=== PATIENT | male | born 1945 | race Caucasian/White ===

== ENCOUNTER 2018-06-12 10:11 | Inpatient (IN) | payer MEDICARE, OTHER ==
[~2018-06-12] VITALS: Ht 182.9 cm; Wt 88.5 kg
--- NOTE | 2018-06-12 09:50 | NUR ---
NURSE NOTES: Report received from EVERARDO Hawthorne. Patient awake. IV access obtained by radiology department. Patient in RA, denies any pain or SOB. SCALPER OPERATOR was called for Patient at 0855 however Patient alert and awake at the moment. Bed on lowest position, brakes engaged, side rails upx2. Call light within easy reach. Patient made aware of procedures to be done for the day. Addendum: 06/12/18 at 2004 by Dominik Rivers RN WRONG PATIENT
[~2018-06-12 10:11] MED LIST: ATORVASTATIN CA20 MG ORAL; CARVEDILOL3.125 MG ORAL; DEXILANT60 MG ORAL; DIAZEPAM10 MG ORAL; FISH OIL 1,2001 EAC3 ORAL; FOLIC ACID1 MG ORAL; FUROSEMIDE20 M1 ORAL; JANUVIA25 MG ORAL; KLOR-CON20 MEQ ORAL; LISINOPRIL10 MG ORAL; METFORMIN HCL500 M1 ORAL; PREDNISONE20 MG ORAL; PRILOSEC40 MG ORAL; PROAIR HFA8.5 GM INH; VITAMIN D400 INTLU ORAL; vit b12
[2018-06-12 10:41] VITALS: BP 112/68
--- NOTE | 2018-06-12 10:41 | NUR ---
ED Nurse Note: PT walked in to ED due to dizziness for last 3 days. per pt, he is the one who spinning. per pt, it was on and off. dry coughing noted. wheezing audiable. AAO x4. respirations even and non-labored noted. skin warm to touch. no open wound noted. ambulatory with steady gait. broken and missing teeth noted. per pt, had lip cancer and treated. on monitoring and evaluation advisor. will wait for the further order.
[2018-06-12] MEDS ORDERED: Albuterol/Ipratropium 3ml neb HHN ONE (11:15)
[2018-06-12 11:25] LABS: EOSINOPHILS % (AUTO) 3.1 % (0.0-3.0); HEMATOCRIT 52.5 % (42.0-52.0); HEMOGLOBIN 17.1 G/DL (14.2-18.0); LYMPHOCYTES % (AUTO) 20.4 % (20.0-45.0); MEAN CORPUSCULAR VOLUME 91 FL (80-99); NEUTROPHILS % (AUTO) 69.5 % (45.0-75.0); PLATELET COUNT 223 K/UL (150-450); RED BLOOD COUNT 5.77 M/UL (4.70-6.10); RED CELL DISTRIBUTION WIDTH 13.3 % (11.6-14.8); WHITE BLOOD COUNT 7.9 K/UL (4.8-10.8)
[2018-06-12 11:30] LABS: ANION GAP 8 mmol/L (5-15); BLOOD UREA NITROGEN 22 mg/dL (7-18); CALCIUM 9.4 MG/DL (8.5-10.1); CARBON DIOXIDE 27 MMOL/L (21-32); CHLORIDE 104 MMOL/L (98-107); CREATININE 1.3 MG/DL (0.55-1.30); POTASSIUM 4.5 MMOL/L (3.5-5.1); SODIUM 139 MMOL/L (136-145)
--- NOTE | 2018-06-12 11:30 | NUR ---
NURSE NOTES: Radiology confirmed IV ok to use.
[2018-06-12 11:35] LABS: APPEARANCE,URINE CLEAR; BILIRUBIN, URINE NEGATIVE (NEGATIVE); COLOR,URINE PALE YELLOW; GLUCOSE, URINE (UA) NEGATIVE (NEGATIVE); KETONES,URINE NEGATIVE (NEGATIVE); LEUKOCYTE ESTERASE ,URINE NEGATIVE (NEGATIVE); NITRITE,URINE NEGATIVE (NEGATIVE); PH,URINE 5 (4.5-8.0); PROTEIN,URINE NEGATIVE (NEGATIVE); UROBILINOGEN,URINE NORMAL MG/DL (0.0-1.0)
[2018-06-12 11:44] LABS: ALANINE AMINOTRANSFERASE 19 U/L (12-78); ALBUMIN 3.7 G/DL (3.4-5.0); ALBUMIN/GLOBULIN RATIO 0.8 (1.0-2.7); ALKALINE PHOSPHATASE 69 U/L (46-116); ASPARTATE AMINO TRANSFERASE 15 U/L (15-37); BILIRUBIN,TOTAL 0.7 MG/DL (0.2-1.0); CREATINE KINASE 75 U/L (26-308)
--- NOTE | 2018-06-12 11:59 | Diagnostic Imaging Report ---
Indication: Shortness of breath Technique: One view of the chest Comparison: 11/26/2012 Findings: Again demonstrated is evidence of prior CABG. The heart is enlarged. Lungs and pleural spaces are clear Impression: Cardiomegaly. No acute process
[2018-06-12 12:00] VITALS: BP 104/64
--- NOTE | 2018-06-12 12:04 | Diagnostic Imaging Report ---
Indications: Dizziness Technique: Spiral acquisitions obtained through the brain. Angled axial and coronal 5 x 5 mm slices were reconstructed. Total dose length product 1446.09 mGycm. CTDI vol(s) 70.38 mGy. Dose reduction achieved using automated exposure control Comparison: None. Findings: Ventricles and extra axial CSF spaces are within normal limits for age. No acute intercranial hemorrhage nor edema. No mass effect or midline shift. Normal vazquez-white differentiation. Visualized orbits are unremarkable. There is questionably a scalp contusion near the vertex, versus chronic scalp thickening. There is ethmoid sinus mucosal thickening. The mastoids are clear. The calvarium is intact. Impression: Negative for acute intrarenal bleed or mass effect Thickening of the scalp near the vertex, could indicate contusion. Correlate with clinical history and findings The CT scanner at [facility] is accredited by the [employer] and the scans are performed using protocols designed to limit radiation exposure to as low as reasonably achievable to attain images of sufficient resolution adequate for diagnostic evaluation.
[2018-06-12] MEDS ORDERED: KLOR-CON 88 MEQ ORAL (12:43)
[2018-06-12] MEDS ORDERED: TYLENOL COLD &1 EAC1 PO (12:43)
[2018-06-12] MEDS ORDERED: PREDNISONE1 MG PO (12:43)
[2018-06-12] MEDS ORDERED: PRINIVIL10 MG ORAL (12:43)
[2018-06-12] MEDS ORDERED: HYDROXYCHLOROQ200 M1 PO (12:43)
[2018-06-12] MEDS ORDERED: CRESTOR40 MG ORAL (12:43)
[2018-06-12] MEDS ORDERED: CARVEDILOL25 MG ORAL (12:43)
[2018-06-12] MEDS ORDERED: LORazepam Inj 2mg/ml 1ml IV PRN (13:15)
[2018-06-12] MEDS ORDERED: Ketorolac 30mg Inj IV PRN (13:15)
[2018-06-12] MEDS ORDERED: Promethazine/Codeine 5ml UD ORAL PRN (13:15)
[2018-06-12] MEDS ORDERED: Morphine Sulfate 2mg/ml Inj IVP PRN (13:15)
[2018-06-12] MEDS ORDERED: Albuterol/Ipratropium 3ml neb HHN PRN (13:15)
[2018-06-12 14:00] VITALS: BP 121/70
[2018-06-12] MEDS ORDERED: Piperacillin/Tazobactam 2.25 GM in D5W 55 ML IV SCH (14:00)
[2018-06-12] MEDS ORDERED: Nitroglycerin Subl 0.4mg tab SL PRN (14:00)
--- NOTE | 2018-06-12 15:17 | NUR ---
ED Nurse Note: tele unable to take reports at this time. will try within 10 mins.
--- NOTE | 2018-06-12 15:25 | NUR ---
NURSE NOTES: Report received from EVERARDO Hilliard. Patient AOx4. In RA. Belongings checked signed and filed. Patient's own medications packed to be sent to pharmacy. IV patent. Bed on lowest position, brakes engaged, side rails up x2. Patient oriented to room hospital policies..... Call light within easy reach.
--- NOTE | 2018-06-12 15:35 | NUR ---
ED Nurse Note: reports given to EVERARDO Potter.
[2018-06-12] MEDS: Zosyn 3.375gm q8h **Extended infusion IVPB SCH ×4 (17:31→22:15)
[2018-06-12] MEDS: Solu-MEDROL 125mg Inj IV SCH (17:40)
--- NOTE | 2018-06-12 19:15 | History and Physical Report ---
DATE OF ADMISSION: 06/12/2018 TIME SEEN: 2 p.m. CONSULTANTS: 1. Zaheer Hidalgo M.D. 2. Deandre Cho M.D. 3. Deni Lowe M.D. 4. Samuel Hull M.D. CHIEF COMPLAINT: Weakness, dizziness, shortness of breath, cough, and vertigo. BRIEF HISTORY: This is a 73-year-old male, who lives at home all of a sudden experienced room spinning, dizziness, vertigo came to [facility], diagnosed with vertigo, cough and weakness and shortness of breath, being admitted to telemetry for further care. Currently, calm, in the ER gurney, oriented x3, no acute distress. PAST MEDICAL HISTORY: Includes diabetes, hypertension, COPD. PAST SURGICAL HISTORY: Quadruple bypass. MEDICATIONS: Include Lasix, Januvia, Coreg, , Navjot-Dur, Plaquenil, Solu-Medrol, Zosyn, albuterol. ALLERGIES: None. SOCIAL HISTORY: No smoking. Occasional alcohol. No intravenous drug abuse. FAMILY HISTORY: Noncontributory. PHYSICAL EXAMINATION: GENERAL: Calm in bed, oriented x3, no acute distress. VITAL SIGNS: Temperature is 97 degrees, pulse 65, respiratory rate 20, blood pressure 112/68. CARDIOVASCULAR: No murmurs. LUNGS: Distant and clear. ABDOMEN: Bowel sounds positive. Nontender. Nondistended. EXTREMITIES: No cyanosis, clubbing, or edema. NEUROLOGIC: The patient moves all extremities, slightly weak. LABORATORY AND DIAGNOSTIC DATA: CBC is normal. BMP show BUN 22, glucose 130. Lactic acid 2.3. Troponin 0.002. BNP is 361. Albumin 3.7. ASSESSMENT: 1. Fever. 2. Shortness breath. 3. Weakness. 4. Cough. 5. Vertigo. 6. Diabetes. 7. Hypertension. 8. COPD. 9. Poor hearing. PLAN: 1. Blood pressure and blood sugar control. 2. Pain control. 3. Dietary followup. 4. PT evaluation. 5. CBC and BMP in the morning. 6. Resume home medications. 7. We will continue to follow the patient. Delano Walters D.O. DR: Harish JOB#: [id number] CC:
--- NOTE | 2018-06-12 19:19 | Cardiology Progress Note ---
Assessment/Plan Assessment/Plan The patient is seen and examined, full consult note will be dictated. Objective Last 24 Hour Vital Signs Date Time Temp Pulse Resp B/P (MAP) Pulse Ox O2 Delivery O2 Flow Rate FiO2 06/12/18 17:12 Room Air 06/12/18 16:00 64 06/12/18 15:32 98.3 64 22 107/69 96 Room Air 06/12/18 14:00 98.6 75 20 121/70 96 Room Air 21 06/12/18 12:00 65 20 99 Room Air 21 06/12/18 12:00 98.3 62 21 104/64 95 Room Air 21 06/12/18 11:51 21 06/12/18 11:51 62 24 94 Room Air 21 06/12/18 10:41 68 27 Room Air 06/12/18 10:41 97.6 68 23 112/68 96 Room Air 06/12/18 10:12 97.7 66 13 118/62 92 Room Air Laboratory Tests Test 06/12/18 10:30 06/12/18 11:17 06/12/18 12:40 White Blood Count 7.9 K/UL (4.8-10.8) Red Blood Count 5.77 M/UL (4.70-6.10) Hemoglobin 17.1 G/DL (14.2-18.0) Hematocrit 52.5 % (42.0-52.0) H Mean Corpuscular Volume 91 FL (80-99) Mean Corpuscular Hemoglobin 29.7 PG (27.0-31.0) Mean Corpuscular Hemoglobin Concent 32.6 G/DL (32.0-36.0) Red Cell Distribution Width 13.3 % (11.6-14.8) Platelet Count 223 K/UL (150-450) Mean Platelet Volume 8.8 FL (6.5-10.1) Neutrophils (%) (Auto) 69.5 % (45.0-75.0) Lymphocytes (%) (Auto) 20.4 % (20.0-45.0) Monocytes (%) (Auto) 6.0 % (1.0-10.0) Eosinophils (%) (Auto) 3.1 % (0.0-3.0) H Basophils (%) (Auto) 1.0 % (0.0-2.0) Sodium Level 139 MMOL/L (136-145) Potassium Level 4.5 MMOL/L (3.5-5.1) Chloride Level 104 MMOL/L (98-107) Carbon Dioxide Level 27 MMOL/L (21-32) Anion Gap 8 mmol/L (5-15) Blood Urea Nitrogen 22 mg/dL (7-18) H Creatinine 1.3 MG/DL (0.55-1.30) Estimat Glomerular Filtration Rate mL/min (>60) Glucose Level 130 MG/DL (74-106) H Lactic Acid Level 2.30 mmol/L (0.4-2.0) H 1.70 mmol/L (0.66-2.22) Calcium Level 9.4 MG/DL (8.5-10.1) Total Bilirubin 0.7 MG/DL (0.2-1.0) Aspartate Amino Transf (AST/SGOT) 15 U/L (15-37) Alanine Aminotransferase (ALT/SGPT) 19 U/L (12-78) Alkaline Phosphatase 69 U/L (46-116) Total Creatine Kinase 75 U/L (26-308) Creatine Kinase MB 1.0 NG/ML (0.0-3.6) Creatine Kinase MB Relative Index 1.3 Troponin I 0.002 ng/mL (0.000-0.056) Pro-B-Type Natriuretic Peptide 361 pg/mL (0-125) H Total Protein 8.3 G/DL (6.4-8.2) H Albumin 3.7 G/DL (3.4-5.0) Globulin 4.6 g/dL Albumin/Globulin Ratio 0.8 (1.0-2.7) L Urine Color Pale yellow Urine Appearance Clear Urine pH 5 (4.5-8.0) Urine Specific [place] 1.020 (1.005-1.035) Urine Protein Negative (NEGATIVE) Urine Glucose (UA) Negative (NEGATIVE) Urine Ketones Negative (NEGATIVE) Urine Blood Negative (NEGATIVE) Urine Nitrite Negative (NEGATIVE) Urine Bilirubin Negative (NEGATIVE) Urine Urobilinogen Normal MG/DL (0.0-1.0) Urine Leukocyte Esterase Negative (NEGATIVE) Microbiology Date/Time Source Procedure Growth Status 06/12/18 11:17 Nasal Nares Influenza Types A,B Antigen (GARETT) - Final Complete Deni Lowe MD Jun 12, 2018 19:18
--- NOTE | 2018-06-12 19:30 | NUR ---
NURSE NOTES: Received report from EVERARDO Lehman. Pt is awake and resting in bed. In no acute distress. Bed in lowest position, call light within reach. Will continue plan of care.
--- NOTE | 2018-06-12 19:50 | NUR ---
HAND-OFF: Report given to EVERARDO Santiago. Patient in stable condition.
[2018-06-12 20:00] VITALS: BP 135/87
[2018-06-12] MEDS: Theophylline ER 100mg ORAL SCH (22:14)
[2018-06-12] MEDS: Carvedilol 25mg Tab ORAL SCH (22:15)
[2018-06-12] MEDS: Heparin 5000 units/ml inj SUBQ SCH (22:16)
--- NOTE | 2018-06-12 23:00 | Consultation ---
DATE OF CONSULTATION: 06/12/2018 CARDIOLOGY CONSULTATION CONSULTING PHYSICIAN: Deni Lowe M.D. REFERRING PHYSICIAN: Delano Walters D.O. REASON FOR CONSULTATION: Management of coronary artery disease in the patient with coronary artery bypass graft surgery as well as shortness of breath. 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 The patient states that he was at usual state of health until he started to have runny nose with chest congestion and productive cough of clear phlegm in addition to history of baseline asthma. He states that for asthma he takes about 2 mg of prednisone on a daily basis. His cardiac history is significant for history of coronary artery disease, status post quadruple coronary artery bypass graft surgery, which was done by at the [facility] at that time. He states that ever since bypass surgery, he has not had any trouble with his heart. He is still physically active and asymptomatic with pressing about 30 kg of weight. PAST MEDICAL HISTORY: Significant for, 1. Coronary artery disease, status post coronary artery bypass graft surgery. 2. History of asthma. 3. History of hay fever. 4. History of CVA. 5. History of diabetes mellitus. PAST SURGICAL HISTORY: Quadruple coronary artery bypass graft surgery. SOCIAL HISTORY: Smoked just about a year when he was younger and never smoked ever after. Denies any alcohol use. Denies any illicit drug use. REVIEW OF SYSTEMS: HEENT: Denies any headache, diplopia, or blurred vision. CONSTITUTIONAL: Denies any fever or chills. He had two episode of sweating following the vertigo. He does not complain of presyncope and did not have syncopal event. CARDIOVASCULAR: Denies any chest pain, shortness of breath, PND, orthopnea, or leg swelling. PULMONARY: Complaining of chest congestion and productive cough of clear phlegm in the past four to five days. Denies any hemoptysis. GASTROINTESTINAL: Denies any nausea, vomiting, diarrhea, constipation, abdominal pain, or GI bleed. GENITOURINARY: Denies any hematuria, dysuria, or incontinence. NEUROLOGY: Denies any motor dysfunction, sensory deficit, or altered speech. MEDICATIONS: List of medications, 1. Albuterol one puff inhaler q.6 hours. 2. Carvedilol 25 mg twice daily. 3. Dexilant 60 mg p.o. daily. 4. Folic acid 1 mg p.o. daily. 5. Furosemide 40 mg p.o. daily. 6. Hydroxychloroquine 200 mg twice daily. 7. Lisinopril 10 mg p.o. twice daily. 8. Metformin 500 mg twice daily. 9. Tylenol Cold And Flu severe cold one tablet daily. 10. Klor-Con 8 one tablet daily. 11. Prednisone 2 mg p.o. daily. 12. Crestor 40 mg p.o. daily. 13. Januvia 100 mg p.o. daily. ALLERGIES: Allergic to dairy, grape fruit, orange juice, and pollen extract. FAMILY HISTORY: No premature coronary artery disease in the first-degree relatives. PHYSICAL EXAMINATION: VITAL SIGNS: At the time of arrival to the hospital, blood pressure was 118/62, pulse of 66, respiration of 13, temperature 97.7 degrees Fahrenheit, and O2 saturation of 92% on room air. GENERAL: The patient is a very pleasant 73-year-old gentleman, in no apparent respiratory distress. Alert and oriented x4. HEENT: Atraumatic and normocephalic. Anicteric. Pupils are equal, round, and reactive to light and accommodation. Extraocular muscles intact. NECK: JVP is less than 5 cm. No carotid bruits. Carotid upstrokes 2+ bilaterally. CVS: Midsternal sternotomy scar is evident. Normal S1, S2. Regular rate and rhythm. No murmurs, gallops, or rubs. PMI is at fourth intercostal space in the midclavicular line. LUNGS: Diminished breath sounds with expiratory rhonchi throughout both lungs. No crackles. ABDOMEN: Soft, nontender, and nondistended. No hepatosplenomegaly. Positive bowel sounds. EXTREMITIES: No evidence of edema, clubbing, or cyanosis. LABORATORY AND DIAGNOSTIC DATA: Laboratory findings, sodium was 139, potassium is 4.5, chloride 104, bicarbonate 27, BUN of 22, creatinine 1.3, glucose is 130, and calcium is 9.4. ProBNP 361. Troponin I is 0.002. WBC 7.9, hemoglobin 17.1, hematocrit of 52.5, and platelet count is 223,000. Chest x-ray showed cardiomegaly with sternal wires, but no acute cardiopulmonary disease. A 12-lead electrocardiogram was significant for sinus rhythm at a rate of 63 with normal axis and nonspecific ST and T-wave abnormalities. ASSESSMENT AND PLAN: The patient is a very unfortunate 73-year-old gentleman, seen in Cardiology consultation at the request of Dr. Walters. 1. Dyspnea, this is most likely secondary to acute exacerbation of asthma. I will recommend nebulizer treatment with albuterol and Atrovent, Solu-Medrol, pulmonary toilet, and oxygen. Pulmonary consultation is also warranted. A 2D echocardiography will be done for assessment of left ventricular systolic and diastolic function. 2. History of coronary artery disease, status post quadruple coronary artery bypass graft surgery, stable. A 12-lead electrocardiogram does not show any acute ischemic features. First troponin I level is negative. The patient does not have any chest pain either. A 2D echocardiography would shed light on the detail of left ventricular systolic and diastolic function. 3. History of diabetes mellitus. 4. History of cerebrovascular accident with no residual deficit. 5. Vertigo, questionable presyncope, questionable vasovagal reaction currently. I would like to thank, Dr. Walters, for allowing me to participate in the care of this patient. Deni Lowe M.D. DR: JORDYN JOB#: [id number] CC:
[2018-06-13] VITALS: BP 126/75
[2018-06-13] MEDS: Solu-MEDROL 125mg Inj IV SCH ×2 (00:13→05:26)
[2018-06-13 04:00] VITALS: BP 131/61
[2018-06-13] MEDS: Zosyn 3.375gm q8h **Extended infusion IVPB SCH ×6 (05:26→21:47)
--- NOTE | 2018-06-13 07:10 | NUR ---
NURSE NOTES: Report received from EVERARDO Santiago. Patient AOx4. In RA. Sitting at side of bed, having breakfast. Denies any pain or SOB. IV L AC 20g running zosyn. Bed on lowest position, brakes engaged, side rails upx2. Call light within easy reach.
--- NOTE | 2018-06-13 07:10 | NUR ---
HAND-OFF: Report given to EVERARDO Gracia. Addendum: 06/13/18 at 2013 by Dominik Rivers RN Wrong time
[2018-06-13 08:00] VITALS: BP 137/75
[2018-06-13 08:01] LABS: HEMATOCRIT 46.3 % (42.0-52.0); HEMOGLOBIN 15.3 G/DL (14.2-18.0); MEAN CORPUSCULAR VOLUME 91 FL (80-99); PLATELET COUNT 206 K/UL (150-450); RED BLOOD COUNT 5.11 M/UL (4.70-6.10); RED CELL DISTRIBUTION WIDTH 13.1 % (11.6-14.8); WHITE BLOOD COUNT 9.7 K/UL (4.8-10.8)
--- NOTE | 2018-06-13 08:06 | NUR ---
HAND-OFF: Report given to EVERARDO Lehman.
[2018-06-13 08:16] LABS: ANION GAP 10 mmol/L (5-15); BLOOD UREA NITROGEN 23 mg/dL (7-18); CALCIUM 9.1 MG/DL (8.5-10.1); CARBON DIOXIDE 25 MMOL/L (21-32); CHLORIDE 105 MMOL/L (98-107); CREATININE 1.3 MG/DL (0.55-1.30); POTASSIUM 4.5 MMOL/L (3.5-5.1); SODIUM 140 MMOL/L (136-145)
[2018-06-13] MEDS ORDERED: Furosemide 40mg tab ORAL SCH (09:00)
[2018-06-13] MEDS: Theophylline ER 100mg ORAL SCH (09:10)
[2018-06-13] MEDS: Carvedilol 25mg Tab ORAL SCH ×2 (09:10→20:41)
[2018-06-13] MEDS: Heparin 5000 units/ml inj SUBQ SCH ×2 (09:12→20:43)
--- NOTE | 2018-06-13 11:45 | NUR ---
CASE MANAGEMENT:REVIEW FROM HOME TO ER CC: [id number] DAYS. FELT LIKE ROOM SPINNING. AND PALPITATION. AUDIBLE WHEEZING PMH: QUADRUPLE BYPASS SI: PALPITATION. VERTIGO 97.7 66 13 118/62 92% ON RA GLUCOSE+130 LACTIC ACID+2.30 IS: 1L NS BOLUS DUONEB HHN BLOOD CX CT HEAD CXR : TO TELEMETRY PLAN: 2DECHO PT EVAL INTERQUAL CRITERIA MET
--- NOTE | 2018-06-13 11:58 | Consultation ---
History of Present Illness General Date patient seen: Jun 13, 2018 Chief Complaint: Vertigo Present Illness HPI 73 year old male with hx of CABG, Asthma, Cardiomegaly, DM, presented to ER with CC of increased shortness of breath, wheezing, cough, runny nose etc. Pt is admitted to telemetry for acute exacerbation of asthma. He had episodes of palpitation as well, therefore he is admitted to telemetry for further work up. Allergies: Coded Allergies: Dairy (Verified Allergy, Severe, Swollen lips, 09/29/15) GRAPEFRUIT (Verified Allergy, Intermediate, Rash, itching, 09/29/15) ORANGE JUICE (Verified Allergy, Intermediate, Itching, 09/29/15) POLLEN EXTRACTS (Verified Allergy, Intermediate, itching, sneezing, watery eyes, 09/29/15) Medication History Scheduled Albuterol Sulfate* (Proair Hfa*), 1 PUFF INH Q6H, (Reported) Carvedilol* (Carvedilol*), 25 MG ORAL BID, (Reported) Dexlansoprazole (Dexilant), 60 MG ORAL DAILY, (Reported) Folic Acid* (Folic Acid*), 1 MG ORAL DAILY, (Reported) Furosemide* (Lasix*), 40 MG ORAL DAILY, (Reported) Hydroxychloroquine Sulfate (Hydroxychloroquine Sulfate), 200 MG PO BID, ( Reported) Lisinopril* (Prinivil*), 10 MG ORAL BID, (Reported) Metformin Hcl* (Metformin Hcl*), 500 MG ORAL TWICE A DAY, (Reported) Potassium Chloride (Klor-Con 8), 8 MEQ ORAL DAILY, (Reported) Prednisone (Prednisone), 2 MG PO DAILY, (Reported) Rosuvastatin Calcium* (Crestor*), 40 MG ORAL DAILY, (Reported) Sitagliptin* (Januvia*), 100 MG ORAL DAILY, (Reported) Miscellaneous Medications Phenylephrine/Dm/Acetaminop/Gg (Tylenol Cold & Flu Severe Cplt), 1 EACH PO, ( Reported) Discontinued Medications Atorvastatin Calcium* (Atorvastatin Calcium*), 80 MG ORAL BEDTIME, (Reported) Discontinued Reason: MD discontinued med Carvedilol* (Carvedilol*), 25 MG ORAL DAILY, (Reported) Discontinued Reason: Medication dose changed Diazepam* (Diazepam*), 10 MG ORAL Q6H PRN for For Anxiety, (Reported) Discontinued Reason: MD discontinued med Lisinopril* (Lisinopril*), 10 MG ORAL BID, (Reported) Discontinued Reason: Medication dose changed [place]-3 Fatty Acids/Fish Oil (Fish Oil 1,200 Mg Softgel), 1 CAP ORAL TWICE A DAY , (Reported) Discontinued Reason: Pt stopped taking med Potassium Chloride (Klor-Con), 8 MEQ ORAL DAILY, (Reported) Discontinued Reason: Medication dose changed Prednisone* (Prednisone*), 2 MG ORAL DAILY, (Reported) Discontinued Reason: Medication dose changed Patient History Healthcare decision maker Resuscitation status Full Code Advanced Directive on File No Past Medical/Surgical History Past Medical/Surgical History: (1) COPD (chronic obstructive pulmonary disease) (2) CAD (coronary artery disease) (3) HTN (hypertension) (4) History of ETOH abuse (5) 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 Review of Systems Respiratory: Reports: shortness of breath Cardiovascular: Reports: palpitations All Other Systems: negative except mentioned in HPI Physical Exam General Appearance: WD/WN, no apparent distress Lines, tubes and drains: peripheral, central line HEENT: normocephalic, anicteric Neck: non-tender, normal alignment, limited range of motion Respiratory/Chest: chest wall non-tender, lungs clear Cardiovascular/Chest: normal peripheral pulses, normal rate, no JVD Abdomen: soft Genitourinary/Rectal: normal genital exam Skin Exam: normal pigmentation Neurologic: insights analyst II-XII grossly normal Last 24 Hour Vital Signs Date Time Temp Pulse Resp B/P (MAP) Pulse Ox O2 Delivery O2 Flow Rate FiO2 06/13/18 09:10 75 137/75 06/13/18 09:00 Room Air 06/13/18 08:00 97.8 75 20 137/75 (95) 92 06/13/18 08:00 72 06/13/18 04:00 75 06/13/18 04:00 97.0 75 18 131/61 (84) 95 06/13/18 00:00 74 06/13/18 00:00 97.4 74 18 126/75 (92) 94 06/12/18 22:15 66 112/65 06/12/18 21:00 Room Air 06/12/18 20:00 69 06/12/18 20:00 97.5 69 18 135/87 (103) 94 06/12/18 17:12 Room Air 06/12/18 16:00 64 06/12/18 15:32 98.3 64 22 107/69 96 Room Air 06/12/18 14:00 98.6 75 20 121/70 96 Room Air 21 06/12/18 12:00 65 20 99 Room Air 21 06/12/18 12:00 98.3 62 21 104/64 95 Room Air 21 06/12/18 11:51 21 06/12/18 11:51 62 24 94 Room Air 21 Intake and Output 06/12/18 06/13/18 19:00 07:00 Intake Total 1260 ml Balance 1260 ml Intake Oral 260 ml IV Total 1000 ml # Voids 3 # Bowel Movements 3 3 Laboratory Tests Test 06/12/18 12:40 06/13/18 07:09 Lactic Acid Level 1.70 mmol/L (0.66-2.22) White Blood Count 9.7 K/UL (4.8-10.8) Red Blood Count 5.11 M/UL (4.70-6.10) Hemoglobin 15.3 G/DL (14.2-18.0) Hematocrit 46.3 % (42.0-52.0) Mean Corpuscular Volume 91 FL (80-99) Mean Corpuscular Hemoglobin 29.9 PG (27.0-31.0) Mean Corpuscular Hemoglobin Concent 33.0 G/DL (32.0-36.0) Red Cell Distribution Width 13.1 % (11.6-14.8) Platelet Count 206 K/UL (150-450) Mean Platelet Volume 8.0 FL (6.5-10.1) Neutrophils (%) (Auto) % (45.0-75.0) Lymphocytes (%) (Auto) % (20.0-45.0) Monocytes (%) (Auto) % (1.0-10.0) Eosinophils (%) (Auto) % (0.0-3.0) Basophils (%) (Auto) % (0.0-2.0) Neutrophils % (Manual) Pending Lymphocytes % (Manual) Pending Platelet Estimate Pending Platelet Morphology Pending Sodium Level 140 MMOL/L (136-145) Potassium Level 4.5 MMOL/L (3.5-5.1) Chloride Level 105 MMOL/L (98-107) Carbon Dioxide Level 25 MMOL/L (21-32) Anion Gap 10 mmol/L (5-15) Blood Urea Nitrogen 23 mg/dL (7-18) H Creatinine 1.3 MG/DL (0.55-1.30) Estimat Glomerular Filtration Rate mL/min (>60) Glucose Level 205 MG/DL (74-106) H Calcium Level 9.1 MG/DL (8.5-10.1) Height (Feet): 6 Height (Inches): 0.00 Weight (Pounds): 195 Medications Current Medications Medications (Trade) Dose Ordered Sig/Marty Route PRN Reason Start Time Stop Time Status Last Admin Dose Admin Albuterol/ Ipratropium (Albuterol/ Ipratropium) 3 ml Q4H PRN HHN dyspnea 06/12/18 13:15 06/17/18 13:14 Carvedilol (Coreg) 25 mg Q12HR ORAL 06/12/18 21:00 07/12/18 20:59 06/13/18 09:10 Dextrose (Dextrose 50%) 25 ml Q30M PRN IV Hypoglycemia 06/12/18 13:15 07/12/18 13:14 Dextrose (Dextrose 50%) 50 ml Q30M PRN IV Hypoglycemia 06/12/18 13:15 07/12/18 13:14 Heparin Sodium (Porcine) (Heparin 5000 units/ml) 5,000 units EVERY 12 HOURS SUBQ 06/12/18 21:00 07/12/18 20:59 06/13/18 09:12 Hydroxychloroquine Sulfate (Plaquenil) 200 mg BID ORAL 06/12/18 18:00 07/12/18 17:59 06/13/18 09:10 Ketorolac Tromethamine (Toradol 30mg) 30 mg Q8H PRN IV Moderate Pain (Pain Scale 4-6) 06/12/18 13:15 06/17/18 13:14 Lorazepam (Ativan 2mg/ml 1ml) 0.5 mg Q4H PRN IV For Anxiety 06/12/18 13:15 06/19/18 13:14 Methylprednisolone Sodium Succinate (Solu-MEDROL) 60 mg EVERY 6 HOURS IV 06/12/18 18:00 07/12/18 17:59 06/13/18 05:26 Morphine Sulfate (Morphine Sulfate) 2 mg Q4H PRN IVP Severe Pain (Pain Scale 7-10) 06/12/18 13:15 06/19/18 13:14 Nitroglycerin (Ntg) 0.4 mg Q5MIN X 3 DOSES PRN SL Prn Chest Pain 06/12/18 14:00 07/12/18 13:59 Ondansetron HCl (Zofran) 4 mg Q6H PRN IVP Nausea & Vomiting 06/12/18 13:15 07/12/18 13:14 Piperacillin Sod/ Tazobactam Sod 3.375 gm/Sodium Chloride 110 ml @ 27.5 mls/hr EVERY 8 HOURS IVPB 06/12/18 17:00 06/17/18 16:59 06/13/18 05:26 Promethazine HCl/ Codeine (Phenergan with Codeine) 5 ml Q6H PRN ORAL cough 06/12/18 13:15 07/12/18 13:14 Sitagliptin Phosphate (Januvia) 100 mg DAILY ORAL 06/13/18 09:00 07/13/18 08:59 06/13/18 09:09 Temazepam (Restoril) 15 mg HSPRN PRN ORAL Insomnia 06/12/18 21:00 06/19/18 20:59 06/12/18 22:15 Theophylline (Navjot-Dur) 100 mg EVERY 12 HOURS ORAL 06/12/18 21:00 07/12/18 20:59 06/13/18 09:10 Assessment/Plan Problem List: (1) Acute asthma exacerbation ICD Codes: J45.901 - Unspecified asthma with (acute) exacerbation SNOMED: 036098825 (2) Palpitation ICD Codes: R00.2 - Palpitations SNOMED: 94691664 (3) COPD (chronic obstructive pulmonary disease) ICD Codes: J44.9 - COPD (chronic obstructive pulmonary disease) SNOMED: 49768091 (4) CAD (coronary artery disease) ICD Codes: I25.10 - CAD (coronary artery disease) SNOMED: 02626777 (5) HTN (hypertension) ICD Codes: I10 - HTN (hypertension) SNOMED: 73327997 (6) History of coronary artery bypass graft ICD Codes: Z95.1 - Presence of aortocoronary bypass graft SNOMED: 219176211, 589069062 Assessment/Plan respiratory treatment check sputum short course of abx and steroids with rapid taper cardiology to see check echocardiogram sliding scale symptomatic treatment Zaheer Hidalgo MD Jun 13, 2018 11:58
[2018-06-13 12:00] VITALS: BP 138/86
--- NOTE | 2018-06-13 12:14 | NUR ---
REHAB [facility] PT NOTE CONSUL RECEIVED, SARAH COMPLTED, PATIENT CURRENTLY UP AMBULATING IN ROOM WITH NO LIMITATIONS. REFUSED THE NEED FOR OUTSIDE ASSISTANCE. RECOMMEND RETURN TO PRIOR LOCATION. RECOMMEND DC TO NURSING STAFF FOR FURTHER COMFORT AND CARE AND MOBILITY, DC PT ORDER. TOMA CADET PT DPT Addendum: 06/13/18 at 1215 by TOMA CADET PT Amended: Links added.
--- NOTE | 2018-06-13 13:14 | General Progress Note ---
Assessment/Plan Problem List: (1) Vertigo ICD Codes: R42 - Dizziness and giddiness SNOMED: 948404946 (2) HTN (hypertension) ICD Codes: I10 - Essential (primary) hypertension SNOMED: 96104701 (3) COPD (chronic obstructive pulmonary disease) ICD Codes: J44.9 - COPD (chronic obstructive pulmonary disease) SNOMED: 81403243 (4) HTN (hypertension) ICD Codes: I10 - HTN (hypertension) SNOMED: 86721261 (5) History of ETOH abuse ICD Codes: F10.10 - History of ETOH abuse SNOMED: 571177013 (6) 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 ICD Codes: C44.02 - 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 SNOMED: 518563687 (7) Diabetes ICD Codes: E11.9 - Type 2 diabetes mellitus without complications SNOMED: 38489299 Status: stable, progressing Assessment/Plan pt diet bp bs control cbc bmp am Subjective Constitutional: Reports: weakness Allergies: Coded Allergies: Dairy (Verified Allergy, Severe, Swollen lips, 09/29/15) GRAPEFRUIT (Verified Allergy, Intermediate, Rash, itching, 09/29/15) ORANGE JUICE (Verified Allergy, Intermediate, Itching, 09/29/15) POLLEN EXTRACTS (Verified Allergy, Intermediate, itching, sneezing, watery eyes, 09/29/15) All Systems: reviewed and negative except above Subjective calm in bed less dizzy Objective Last 24 Hour Vital Signs Date Time Temp Pulse Resp B/P (MAP) Pulse Ox O2 Delivery O2 Flow Rate FiO2 06/13/18 12:00 97.3 78 20 138/86 (103) 99 06/13/18 09:10 75 137/75 06/13/18 09:00 Room Air 06/13/18 08:00 97.8 75 20 137/75 (95) 92 06/13/18 08:00 72 06/13/18 04:00 75 06/13/18 04:00 97.0 75 18 131/61 (84) 95 06/13/18 00:00 74 06/13/18 00:00 97.4 74 18 126/75 (92) 94 06/12/18 22:15 66 112/65 06/12/18 21:00 Room Air 06/12/18 20:00 69 06/12/18 20:00 97.5 69 18 135/87 (103) 94 06/12/18 17:12 Room Air 06/12/18 16:00 64 06/12/18 15:32 98.3 64 22 107/69 96 Room Air 06/12/18 14:00 98.6 75 20 121/70 96 Room Air 21 Intake and Output 06/12/18 06/13/18 18:59 06:59 Intake Total 1260 ml Balance 1260 ml Intake Oral 260 ml IV Total 1000 ml # Voids 3 # Bowel Movements 3 3 Laboratory Tests 06/13/18 07:09: White Blood Count 9.7, Red Blood Count 5.11, Hemoglobin 15.3, Hematocrit 46.3, Mean Corpuscular Volume 91, Mean Corpuscular Hemoglobin 29.9, Mean Corpuscular Hemoglobin Concent 33.0, Red Cell Distribution Width 13.1, Platelet Count 206, Mean Platelet Volume 8.0, Neutrophils (%) (Auto) , Lymphocytes (%) (Auto) , Monocytes (%) (Auto) , Eosinophils (%) (Auto) , Basophils (%) (Auto) , Differential Total Cells Counted 100, Neutrophils % (Manual) 86H, Lymphocytes % (Manual) 11L, Monocytes % (Manual) 2, Eosinophils % (Manual) 0, Basophils % ( Manual) 0, Band Neutrophils 1, Platelet Estimate Adequate, Platelet Morphology Normal, Red Blood Cell Morphology Normal, Sodium Level 140, Potassium Level 4.5 , Chloride Level 105, Carbon Dioxide Level 25, Anion Gap 10, Blood Urea Nitrogen 23H, Creatinine 1.3, Estimat Glomerular Filtration Rate , Glucose Level 205H, Calcium Level 9.1 Height (Feet): 6 Height (Inches): 0.00 Weight (Pounds): 195 General Appearance: alert EENT: normal ENT inspection Neck: normal alignment Cardiovascular: normal peripheral pulses, normal rate, regular rhythm Respiratory/Chest: chest wall non-tender, lungs clear, normal breath sounds Abdomen: normal bowel sounds, non tender, no organomegaly Extremities: normal inspection Edema: no edema noted Arm (L), no edema noted Arm (R), no edema noted Leg (L), no edema noted Leg (R), no edema noted Pedal (L), no edema noted Pedal (R), no edema noted Generalized Neurologic: responsive, motor weakness Skin: normal pigmentation, warm/dry Walters,Delano [place] DO Jun 13, 2018 13:14
[2018-06-13 16:00] VITALS: BP 135/73
--- NOTE | 2018-06-13 18:00 | NUR ---
NURSE NOTES: Patient asked to have a pneumonia vaccine, on file it is indicated that he has gotten the vaccine on 2013. Patient "I honestly don't remember getting any pneumonia vaccine the only thing I got was a flu vaccine. Explained to Patient to verify with primary and follow up. Vaccine not to be given at this time.
--- NOTE | 2018-06-13 19:10 | NUR ---
HAND-OFF: Report given to EVERARDO Gracia.
--- NOTE | 2018-06-13 19:30 | NUR ---
NURSE NOTES: Vaccination history to be clarified by morning before administering.
--- NOTE | 2018-06-13 19:35 | NUR ---
NURSE NOTES: Received report from EVERARDO Lehman. Patient awake, alert and verbally responsive. No SOB, no acute distress, denies any pain nor any discomfort at this time. IV site on L AC #20, patent and intact, connected to Zosyn 3.375 gm at 27.5 ml/hr. Bed at lowest position, call light within reach. Will continue plan of care.
[2018-06-13 20:00] VITALS: BP 139/80
--- NOTE | 2018-06-13 23:29 | Cardiology Progress Note ---
Assessment/Plan Assessment/Plan 1. Dyspnea, this is most likely secondary to acute exacerbation of asthma. 2D echocardiography has shown normal LV systolic function with LVEF at 65%. 2. History of coronary artery disease, status post quadruple coronary artery bypass graft surgery, stable. A 12-lead electrocardiogram does not show any acute ischemic features. 3. History of diabetes mellitus. 4. History of cerebrovascular accident with no residual deficit. 5. Vertigo, questionable presyncope, questionable vasovagal reaction. Subjective Subjective Sinus rhythm at rate of 74. Objective Last 24 Hour Vital Signs Date Time Temp Pulse Resp B/P (MAP) Pulse Ox O2 Delivery O2 Flow Rate FiO2 06/13/18 21:00 Room Air 06/13/18 20:41 74 139/80 06/13/18 20:31 74 22 98 Room Air 21 06/13/18 20:31 21 06/13/18 20:00 75 06/13/18 20:00 97.3 75 18 139/80 (99) 95 06/13/18 16:00 97.5 75 20 135/73 (93) 94 06/13/18 16:00 68 06/13/18 12:00 76 06/13/18 12:00 97.3 78 20 138/86 (103) 99 06/13/18 09:10 75 137/75 06/13/18 09:00 Room Air 06/13/18 08:00 97.8 75 20 137/75 (95) 92 06/13/18 08:00 72 06/13/18 04:00 75 06/13/18 04:00 97.0 75 18 131/61 (84) 95 06/13/18 00:00 74 06/13/18 00:00 97.4 74 18 126/75 (92) 94 Intake and Output 06/12/18 06/13/18 19:00 07:00 Intake Total 1260 ml Balance 1260 ml Intake Oral 260 ml IV Total 1000 ml # Voids 3 # Bowel Movements 3 3 2D Echo: LVEF 65%, Mild LVH, Grade I LVDD, RVSP 25 mmHg Laboratory Tests Test 06/13/18 07:09 White Blood Count 9.7 K/UL (4.8-10.8) Red Blood Count 5.11 M/UL (4.70-6.10) Hemoglobin 15.3 G/DL (14.2-18.0) Hematocrit 46.3 % (42.0-52.0) Mean Corpuscular Volume 91 FL (80-99) Mean Corpuscular Hemoglobin 29.9 PG (27.0-31.0) Mean Corpuscular Hemoglobin Concent 33.0 G/DL (32.0-36.0) Red Cell Distribution Width 13.1 % (11.6-14.8) Platelet Count 206 K/UL (150-450) Mean Platelet Volume 8.0 FL (6.5-10.1) Neutrophils (%) (Auto) % (45.0-75.0) Lymphocytes (%) (Auto) % (20.0-45.0) Monocytes (%) (Auto) % (1.0-10.0) Eosinophils (%) (Auto) % (0.0-3.0) Basophils (%) (Auto) % (0.0-2.0) Differential Total Cells Counted 100 Neutrophils % (Manual) 86 % (45-75) H Lymphocytes % (Manual) 11 % (20-45) L Monocytes % (Manual) 2 % (1-10) Eosinophils % (Manual) 0 % (0-3) Basophils % (Manual) 0 % (0-2) Band Neutrophils 1 % (0-8) Platelet Estimate Adequate Platelet Morphology Normal Red Blood Cell Morphology Normal Sodium Level 140 MMOL/L (136-145) Potassium Level 4.5 MMOL/L (3.5-5.1) Chloride Level 105 MMOL/L (98-107) Carbon Dioxide Level 25 MMOL/L (21-32) Anion Gap 10 mmol/L (5-15) Blood Urea Nitrogen 23 mg/dL (7-18) H Creatinine 1.3 MG/DL (0.55-1.30) Estimat Glomerular Filtration Rate mL/min (>60) Glucose Level 205 MG/DL (74-106) H Calcium Level 9.1 MG/DL (8.5-10.1) Microbiology Date/Time Source Procedure Growth Status 06/12/18 11:17 Nasal Nares Influenza Types A,B Antigen (GARETT) - Final Complete Objective GENERAL: The patient is a very pleasant 73-year-old gentleman, in no apparent respiratory distress. Alert and oriented x4. HEENT: Atraumatic and normocephalic. Anicteric. Pupils are equal, round, and reactive to light and accommodation. Extraocular muscles intact. NECK: JVP is less than 5 cm. No carotid bruits. Carotid upstrokes 2+ bilaterally. CVS: Midsternal sternotomy scar is evident. Normal S1, S2. Regular rate and rhythm. No murmurs, gallops, or rubs. PMI is at fourth intercostal space in the midclavicular line. LUNGS: Diminished breath sounds with expiratory rhonchi throughout both lungs. No crackles. ABDOMEN: Soft, nontender, and nondistended. No hepatosplenomegaly. Positive bowel sounds. EXTREMITIES: No evidence of edema, clubbing, or cyanosis. Deni Lowe MD Jun 13, 2018 23:29
[2018-06-14] VITALS: BP 116/61
--- NOTE | 2018-06-14 03:30 | NUR ---
NURSE NOTES: Patient asleep, breathing even and unlabored, no s/sx of pain nor any discomfort at this time. 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 Bed at lowest position, call light within reach. Will continue to monitor.
[2018-06-14 04:00] VITALS: BP 122/59
[2018-06-14] MEDS: Zosyn 3.375gm q8h **Extended infusion IVPB SCH ×4 (05:41→13:56)
--- NOTE | 2018-06-14 07:16 | NUR ---
HAND-OFF: Report given to EVERARDO Crabtree. Endorsed plan of care.
--- NOTE | 2018-06-14 07:29 | NUR ---
NURSE NOTES: Received report from EVERARDO Gracia. Patient is resting in bed, in stable condition. No s/sx of SOB, breathing is even and unlabored. Denies any presence of pain or discomfort at this time. Bed is in lowest position, brakes engaged. Call light is kept within easy reach. Will continue to monitor patient.
[2018-06-14 08:00] VITALS: BP 123/63
[2018-06-14] MEDS ORDERED: Pneumococcal Vaccine 25mcg/0.5ml IM ONE (08:00)
[2018-06-14 08:05] LABS: BASOPHILS % (AUTO) 0.5 % (0.0-2.0); EOSINOPHILS % (AUTO) 0.1 % (0.0-3.0); HEMATOCRIT 44.9 % (42.0-52.0); HEMOGLOBIN 14.8 G/DL (14.2-18.0); LYMPHOCYTES % (AUTO) 12.4 % (20.0-45.0); MEAN CORPUSCULAR VOLUME 91 FL (80-99); MONOCYTES % (AUTO) 6.2 % (1.0-10.0); NEUTROPHILS % (AUTO) 80.8 % (45.0-75.0); PLATELET COUNT 222 K/UL (150-450); RED BLOOD COUNT 4.93 M/UL (4.70-6.10); RED CELL DISTRIBUTION WIDTH 13.3 % (11.6-14.8); WHITE BLOOD COUNT 14.7 K/UL (4.8-10.8)
[2018-06-14] MEDS: Carvedilol 25mg Tab ORAL SCH ×2 (08:22→20:26)
[2018-06-14] MEDS: Heparin 5000 units/ml inj SUBQ SCH ×2 (08:23→20:29)
[2018-06-14 08:30] LABS: ALANINE AMINOTRANSFERASE 16 U/L (12-78); ALBUMIN 3.3 G/DL (3.4-5.0); ALBUMIN/GLOBULIN RATIO 0.8 (1.0-2.7); ALKALINE PHOSPHATASE 58 U/L (46-116); ANION GAP 6 mmol/L (5-15); ASPARTATE AMINO TRANSFERASE 13 U/L (15-37); BILIRUBIN,TOTAL 0.4 MG/DL (0.2-1.0); BLOOD UREA NITROGEN 19 mg/dL (7-18); CARBON DIOXIDE 28 MMOL/L (21-32); CHLORIDE 105 MMOL/L (98-107); CREATININE 1.2 MG/DL (0.55-1.30); POTASSIUM 4.2 MMOL/L (3.5-5.1); SODIUM 139 MMOL/L (136-145)
[2018-06-14] MEDS ORDERED: Solu-MEDROL 125mg Inj IV SCH (09:00)
--- NOTE | 2018-06-14 09:05 | NUR ---
CASE MANAGEMENT:REVIEW 06/14/18 SI: DYSPNEA. VERTIGO. ACUTE ASTHMA EXACERBATION 98.2 63 18 112/63 96% ON RA WBC+14.7 IS: IV SOLUMEDROL QD IV ZOSYN Q8HRS DUONEB HHN Q4HRS PRN HEPARIN SQ Q12 COREG PO Q12 PLAQUENIL PO BID : TELEMETRY STATUS DCP: FROM HOME
[2018-06-14] MEDS ORDERED: Norco 5mg/325mg tab ORAL PRN ×2 (09:15→17:15)
--- NOTE | 2018-06-14 09:22 | Consultation ---
History of Present Illness General Date patient seen: Jun 14, 2018 Time patient seen: 08:15 - am Chief Complaint: Low back pain Referring physician: Dr. Walters Reason for Consultation: Pain Management Present Illness HPI Patient is a known patient from Dr. Bhakta office last seen in 2012 which he is c/o LBP. Patient has been admitted under the care of Dr. Walters due to palpitations. Started on Morphine 2mg IV Q4H PRN and Toradol 30mg IV Q8H PRN. At this time we were consulted so patient would have adequate pain control while here in the hospital. Allergies: Coded Allergies: Dairy (Verified Allergy, Severe, Swollen lips, 09/29/15) GRAPEFRUIT (Verified Allergy, Intermediate, Rash, itching, 09/29/15) ORANGE JUICE (Verified Allergy, Intermediate, Itching, 09/29/15) POLLEN EXTRACTS (Verified Allergy, Intermediate, itching, sneezing, watery eyes, 09/29/15) Medication History Scheduled Albuterol Sulfate* (Proair Hfa*), 1 PUFF INH Q6H, (Reported) Carvedilol* (Carvedilol*), 25 MG ORAL BID, (Reported) Dexlansoprazole (Dexilant), 60 MG ORAL DAILY, (Reported) Folic Acid* (Folic Acid*), 1 MG ORAL DAILY, (Reported) Furosemide* (Lasix*), 40 MG ORAL DAILY, (Reported) Hydroxychloroquine Sulfate (Hydroxychloroquine Sulfate), 200 MG PO BID, ( Reported) Lisinopril* (Prinivil*), 10 MG ORAL BID, (Reported) Metformin Hcl* (Metformin Hcl*), 500 MG ORAL TWICE A DAY, (Reported) Potassium Chloride (Klor-Con 8), 8 MEQ ORAL DAILY, (Reported) Prednisone (Prednisone), 2 MG PO DAILY, (Reported) Rosuvastatin Calcium* (Crestor*), 40 MG ORAL DAILY, (Reported) Sitagliptin* (Januvia*), 100 MG ORAL DAILY, (Reported) Miscellaneous Medications Phenylephrine/Dm/Acetaminop/Gg (Tylenol Cold & Flu Severe Cplt), 1 EACH PO, ( Reported) Discontinued Medications Atorvastatin Calcium* (Atorvastatin Calcium*), 80 MG ORAL BEDTIME, (Reported) Discontinued Reason: MD discontinued med Carvedilol* (Carvedilol*), 25 MG ORAL DAILY, (Reported) Discontinued Reason: Medication dose changed Diazepam* (Diazepam*), 10 MG ORAL Q6H PRN for For Anxiety, (Reported) Discontinued Reason: MD discontinued med Lisinopril* (Lisinopril*), 10 MG ORAL BID, (Reported) Discontinued Reason: Medication dose changed [place]-3 Fatty Acids/Fish Oil (Fish Oil 1,200 Mg Softgel), 1 CAP ORAL TWICE A DAY , (Reported) Discontinued Reason: Pt stopped taking med Potassium Chloride (Klor-Con), 8 MEQ ORAL DAILY, (Reported) Discontinued Reason: Medication dose changed Prednisone* (Prednisone*), 2 MG ORAL DAILY, (Reported) Discontinued Reason: Medication dose changed Patient History Healthcare decision maker Resuscitation status Full Code Advanced Directive on File No Past Medical/Surgical History Past Medical/Surgical History: (1) COPD (chronic obstructive pulmonary disease) (2) CAD (coronary artery disease) (3) 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 (4) Palpitation (5) Acute asthma exacerbation (6) HTN (hypertension) (7) Diabetes (8) Pancreatitis (9) Tubular adenoma (10) Barretts esophagus (11) HTN (hypertension) (12) History of ETOH abuse (13) Vertigo (14) History of coronary artery bypass graft Review of Systems Constitutional: Reports: no symptoms Eye: Reports: no symptoms ENT: Reports: no symptoms Respiratory: Reports: no symptoms Cardiovascular: Reports: no symptoms Gastrointestinal: Reports: no symptoms Genitourinary: Reports: no symptoms Musculoskeletal: Reports: back pain Skin: Reports: no symptoms Psychiatric: Reports: no symptoms Neurological: Reports: no symptoms Endocrine: Reports: no symptoms Hematologic/Lymphatic: Reports: no symptoms Physical Exam General Appearance: no apparent distress, alert HEENT: PERRL, EOMI Neck: normal alignment, supple Respiratory/Chest: decreased breath sounds Cardiovascular/Chest: normal rate, regular rhythm Abdomen: soft, no organomegaly Extremities: non-tender, normal inspection Neurologic: alert, oriented x 3 Last 24 Hour Vital Signs Date Time Temp Pulse Resp B/P (MAP) Pulse Ox O2 Delivery O2 Flow Rate FiO2 06/14/18 08:56 Room Air 06/14/18 08:22 63 123/63 06/14/18 08:00 98.2 63 18 123/63 (83) 96 06/14/18 04:00 97.7 78 18 122/59 (80) 95 06/14/18 04:00 71 06/14/18 00:00 97.5 73 18 116/61 (79) 95 06/14/18 00:00 75 06/13/18 21:00 Room Air 06/13/18 20:41 74 139/80 06/13/18 20:31 74 22 98 Room Air 21 06/13/18 20:31 21 06/13/18 20:00 75 06/13/18 20:00 97.3 75 18 139/80 (99) 95 06/13/18 16:00 97.5 75 20 135/73 (93) 94 06/13/18 16:00 68 06/13/18 12:00 76 06/13/18 12:00 97.3 78 20 138/86 (103) 99 Intake and Output 06/13/18 06/14/18 19:00 07:00 Intake Total 760 ml 350 ml Output Total 300 ml Balance 460 ml 350 ml Intake Oral 760 ml 240 ml IV Total 110 ml Output Urine Total 300 ml # Voids 3 # Bowel Movements 3 Laboratory Tests Test 06/14/18 07:28 White Blood Count 14.7 K/UL (4.8-10.8) #H Red Blood Count 4.93 M/UL (4.70-6.10) Hemoglobin 14.8 G/DL (14.2-18.0) Hematocrit 44.9 % (42.0-52.0) Mean Corpuscular Volume 91 FL (80-99) Mean Corpuscular Hemoglobin 30.0 PG (27.0-31.0) Mean Corpuscular Hemoglobin Concent 32.9 G/DL (32.0-36.0) Red Cell Distribution Width 13.3 % (11.6-14.8) Platelet Count 222 K/UL (150-450) Mean Platelet Volume 8.0 FL (6.5-10.1) Neutrophils (%) (Auto) 80.8 % (45.0-75.0) H Lymphocytes (%) (Auto) 12.4 % (20.0-45.0) L Monocytes (%) (Auto) 6.2 % (1.0-10.0) Eosinophils (%) (Auto) 0.1 % (0.0-3.0) Basophils (%) (Auto) 0.5 % (0.0-2.0) Sodium Level 139 MMOL/L (136-145) Potassium Level 4.2 MMOL/L (3.5-5.1) Chloride Level 105 MMOL/L (98-107) Carbon Dioxide Level 28 MMOL/L (21-32) Anion Gap 6 mmol/L (5-15) Blood Urea Nitrogen 19 mg/dL (7-18) H Creatinine 1.2 MG/DL (0.55-1.30) Estimat Glomerular Filtration Rate mL/min (>60) Glucose Level 138 MG/DL (74-106) H Calcium Level 9.0 MG/DL (8.5-10.1) Phosphorus Level 3.0 MG/DL (2.5-4.9) Magnesium Level 2.3 MG/DL (1.8-2.4) Total Bilirubin 0.4 MG/DL (0.2-1.0) Aspartate Amino Transf (AST/SGOT) 13 U/L (15-37) L Alanine Aminotransferase (ALT/SGPT) 16 U/L (12-78) Alkaline Phosphatase 58 U/L (46-116) Total Protein 7.5 G/DL (6.4-8.2) Albumin 3.3 G/DL (3.4-5.0) L Globulin 4.2 g/dL Albumin/Globulin Ratio 0.8 (1.0-2.7) L Height (Feet): 6 Height (Inches): 0.00 Weight (Pounds): 195 Medications Current Medications Medications (Trade) Dose Ordered Sig/Marty Route PRN Reason Start Time Stop Time Status Last Admin Dose Admin Albuterol/ Ipratropium (Albuterol/ Ipratropium) 3 ml Q4H PRN HHN dyspnea 06/12/18 13:15 06/17/18 13:14 06/13/18 20:27 Carvedilol (Coreg) 25 mg Q12HR ORAL 06/12/18 21:00 07/12/18 20:59 06/14/18 08:22 Dextrose (Dextrose 50%) 25 ml Q30M PRN IV Hypoglycemia 06/12/18 13:15 07/12/18 13:14 Dextrose (Dextrose 50%) 50 ml Q30M PRN IV Hypoglycemia 06/12/18 13:15 07/12/18 13:14 Heparin Sodium (Porcine) (Heparin 5000 units/ml) 5,000 units EVERY 12 HOURS SUBQ 06/12/18 21:00 07/12/18 20:59 06/14/18 08:23 Hydroxychloroquine Sulfate (Plaquenil) 200 mg BID ORAL 06/12/18 18:00 07/12/18 17:59 06/14/18 08:22 Ketorolac Tromethamine (Toradol 30mg) 30 mg Q8H PRN IV Moderate Pain (Pain Scale 4-6) 06/12/18 13:15 06/17/18 13:14 Lorazepam (Ativan 2mg/ml 1ml) 0.5 mg Q4H PRN IV For Anxiety 06/12/18 13:15 06/19/18 13:14 Methylprednisolone Sodium Succinate (Solu-MEDROL) 60 mg DAILY IV 06/14/18 09:00 07/12/18 17:59 06/14/18 08:22 Morphine Sulfate (Morphine Sulfate) 2 mg Q4H PRN IVP Severe Pain (Pain Scale 7-10) 06/12/18 13:15 06/19/18 13:14 Nitroglycerin (Ntg) 0.4 mg Q5MIN X 3 DOSES PRN SL Prn Chest Pain 06/12/18 14:00 07/12/18 13:59 Ondansetron HCl (Zofran) 4 mg Q6H PRN IVP Nausea & Vomiting 06/12/18 13:15 07/12/18 13:14 Piperacillin Sod/ Tazobactam Sod 3.375 gm/Sodium Chloride 110 ml @ 27.5 mls/hr EVERY 8 HOURS IVPB 06/12/18 17:00 06/17/18 16:59 06/14/18 05:41 Pneumococcal Polyvalent Vaccine (Pneumovax) 0.5 ml ONCE ONCE IM 06/14/18 08:00 06/14/18 08:01 UNV Promethazine HCl/ Codeine (Phenergan with Codeine) 5 ml Q6H PRN ORAL cough 06/12/18 13:15 07/12/18 13:14 06/14/18 04:55 Sitagliptin Phosphate (Januvia) 100 mg DAILY ORAL 06/13/18 09:00 07/13/18 08:59 06/14/18 08:22 Temazepam (Restoril) 15 mg HSPRN PRN ORAL Insomnia 06/12/18 21:00 06/19/18 20:59 06/13/18 21:47 Assessment/Plan Assessment/Plan (1) Lumbar DDD (2) Lumbar Spondylosis Patient will be discontinued off the Morphine and Toradol. Will star the patient on [place] 5/325mg PO 1 tab Q4H PRN pain D/w Dr. Stewart and he concurred. Thank you for consult. Andrea Head Jun 14, 2018 09:22
--- NOTE | 2018-06-14 11:00 | NUR ---
NURSE NOTES: Contacted Dr. Hidalgo and informed MD of Dr. Walters's instructions if patient is cleared from pulmonology perspective. acknowledged and stated, "will be there shortly." Noted. Will continue to monitor patient.
[2018-06-14 12:00] VITALS: BP 114/69
--- NOTE | 2018-06-14 12:00 | NUR ---
NURSE NOTES: Dr. Hidalgo at nurse station, per MD cleared patient from pulmonology perspective. Also per MD, discharge tomorrow AM. Noted.
--- NOTE | 2018-06-14 12:21 | General Progress Note ---
Assessment/Plan Problem List: (1) Vertigo ICD Codes: R42 - Dizziness and giddiness SNOMED: 412236065 (2) HTN (hypertension) ICD Codes: I10 - Essential (primary) hypertension SNOMED: 65004902 (3) COPD (chronic obstructive pulmonary disease) ICD Codes: J44.9 - COPD (chronic obstructive pulmonary disease) SNOMED: 36489194 (4) HTN (hypertension) ICD Codes: I10 - HTN (hypertension) SNOMED: 51583795 (5) History of ETOH abuse ICD Codes: F10.10 - History of ETOH abuse SNOMED: 576866001 (6) 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 ICD Codes: C44.02 - 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 SNOMED: 569896999 (7) Diabetes ICD Codes: E11.9 - Type 2 diabetes mellitus without complications SNOMED: 72730893 Status: stable, progressing Assessment/Plan pt diet bp bs control cbc bmp am dc if clear Subjective Constitutional: Reports: weakness Allergies: Coded Allergies: Dairy (Verified Allergy, Severe, Swollen lips, 09/29/15) GRAPEFRUIT (Verified Allergy, Intermediate, Rash, itching, 09/29/15) ORANGE JUICE (Verified Allergy, Intermediate, Itching, 09/29/15) POLLEN EXTRACTS (Verified Allergy, Intermediate, itching, sneezing, watery eyes, 09/29/15) All Systems: reviewed and negative except above Subjective feeling better Objective Last 24 Hour Vital Signs Date Time Temp Pulse Resp B/P (MAP) Pulse Ox O2 Delivery O2 Flow Rate FiO2 06/14/18 08:56 Room Air 06/14/18 08:22 63 123/63 06/14/18 08:00 71 06/14/18 08:00 98.2 63 18 123/63 (83) 96 06/14/18 04:00 97.7 78 18 122/59 (80) 95 06/14/18 04:00 71 06/14/18 00:00 97.5 73 18 116/61 (79) 95 06/14/18 00:00 75 06/13/18 21:00 Room Air 06/13/18 20:41 74 139/80 06/13/18 20:31 74 22 98 Room Air 21 06/13/18 20:31 21 06/13/18 20:00 75 06/13/18 20:00 97.3 75 18 139/80 (99) 95 06/13/18 16:00 97.5 75 20 135/73 (93) 94 06/13/18 16:00 68 Intake and Output 06/13/18 06/14/18 19:00 07:00 Intake Total 760 ml 350 ml Output Total 300 ml Balance 460 ml 350 ml Intake Oral 760 ml 240 ml IV Total 110 ml Output Urine Total 300 ml # Voids 3 # Bowel Movements 3 Laboratory Tests 06/14/18 07:28: White Blood Count 14.7#H, Red Blood Count 4.93, Hemoglobin 14.8, Hematocrit 44.9 , Mean Corpuscular Volume 91, Mean Corpuscular Hemoglobin 30.0, Mean Corpuscular Hemoglobin Concent 32.9, Red Cell Distribution Width 13.3, Platelet Count 222, Mean Platelet Volume 8.0, Neutrophils (%) (Auto) 80.8H, Lymphocytes ( %) (Auto) 12.4L, Monocytes (%) (Auto) 6.2, Eosinophils (%) (Auto) 0.1, Basophils (%) (Auto) 0.5, Sodium Level 139, Potassium Level 4.2, Chloride Level 105, Carbon Dioxide Level 28, Anion Gap 6, Blood Urea Nitrogen 19H, Creatinine 1.2, Estimat Glomerular Filtration Rate , Glucose Level 138H, Calcium Level 9.0 , Phosphorus Level 3.0, Magnesium Level 2.3, Total Bilirubin 0.4, Aspartate Amino Transf (AST/SGOT) 13L, Alanine Aminotransferase (ALT/SGPT) 16, Alkaline Phosphatase 58, Total Protein 7.5, Albumin 3.3L, Globulin 4.2, Albumin/Globulin Ratio 0.8L Height (Feet): 6 Height (Inches): 0.00 Weight (Pounds): 195 General Appearance: alert EENT: normal ENT inspection Neck: normal alignment Cardiovascular: normal peripheral pulses, normal rate, regular rhythm Respiratory/Chest: chest wall non-tender, lungs clear, normal breath sounds Abdomen: normal bowel sounds, non tender, soft Extremities: normal inspection Edema: no edema noted Arm (L), no edema noted Arm (R), no edema noted Leg (L), no edema noted Leg (R), no edema noted Pedal (L), no edema noted Pedal (R), no edema noted Generalized Neurologic: responsive, motor weakness Skin: normal pigmentation, warm/dry Delano Walters DO Jun 14, 2018 12:21
--- NOTE | 2018-06-14 12:27 | Pulmonology Progress Note ---
Assessment/Plan Problems: (1) Acute asthma exacerbation (2) Palpitation (3) COPD (chronic obstructive pulmonary disease) (4) CAD (coronary artery disease) (5) HTN (hypertension) (6) History of coronary artery bypass graft Assessment/Plan taper steroids check sputum change to prednisone 40 po respiratory treatment check electrolytes dvt prophylaxis. Subjective ROS Limited/Unobtainable: No Interval Events: less short of breath Constitutional: Reports: no symptoms HEENT: Repors: no symptoms Allergies: Coded Allergies: Dairy (Verified Allergy, Severe, Swollen lips, 09/29/15) GRAPEFRUIT (Verified Allergy, Intermediate, Rash, itching, 09/29/15) ORANGE JUICE (Verified Allergy, Intermediate, Itching, 09/29/15) POLLEN EXTRACTS (Verified Allergy, Intermediate, itching, sneezing, watery eyes, 09/29/15) Objective Last 24 Hour Vital Signs Date Time Temp Pulse Resp B/P (MAP) Pulse Ox O2 Delivery O2 Flow Rate FiO2 06/14/18 08:56 Room Air 06/14/18 08:22 63 123/63 06/14/18 08:00 71 06/14/18 08:00 98.2 63 18 123/63 (83) 96 06/14/18 04:00 97.7 78 18 122/59 (80) 95 06/14/18 04:00 71 06/14/18 00:00 97.5 73 18 116/61 (79) 95 06/14/18 00:00 75 06/13/18 21:00 Room Air 06/13/18 20:41 74 139/80 06/13/18 20:31 74 22 98 Room Air 21 06/13/18 20:31 21 06/13/18 20:00 75 06/13/18 20:00 97.3 75 18 139/80 (99) 95 06/13/18 16:00 97.5 75 20 135/73 (93) 94 06/13/18 16:00 68 Intake and Output 06/13/18 06/14/18 19:00 07:00 Intake Total 760 ml 350 ml Output Total 300 ml Balance 460 ml 350 ml Intake Oral 760 ml 240 ml IV Total 110 ml Output Urine Total 300 ml # Voids 3 # Bowel Movements 3 General Appearance: WD/WN, no acute distress HEENT: normocephalic, atraumatic Respiratory/Chest: chest wall non-tender, rhonchi Cardiovascular: normal peripheral pulses, normal rate Abdomen: normal bowel sounds, soft, non tender Genitourinary: normal external genitalia Extremities: no cyanosis Skin: no rash Neurologic/Psychiatric: director athletic II-XII grossly normal Microbiology Date/Time Source Procedure Growth Status 06/12/18 11:45 Blood Blood Culture - Preliminary NO GROWTH AFTER 24 HOURS Resulted 06/12/18 10:30 Blood Blood Culture - Preliminary NO GROWTH AFTER 24 HOURS Resulted 06/12/18 11:17 Nasal Nares Influenza Types A,B Antigen (GARETT) - Final Complete Laboratory Tests 06/14/18 07:28: White Blood Count 14.7#H, Red Blood Count 4.93, Hemoglobin 14.8, Hematocrit 44.9 , Mean Corpuscular Volume 91, Mean Corpuscular Hemoglobin 30.0, Mean Corpuscular Hemoglobin Concent 32.9, Red Cell Distribution Width 13.3, Platelet Count 222, Mean Platelet Volume 8.0, Neutrophils (%) (Auto) 80.8H, Lymphocytes ( %) (Auto) 12.4L, Monocytes (%) (Auto) 6.2, Eosinophils (%) (Auto) 0.1, Basophils (%) (Auto) 0.5, Sodium Level 139, Potassium Level 4.2, Chloride Level 105, Carbon Dioxide Level 28, Anion Gap 6, Blood Urea Nitrogen 19H, Creatinine 1.2, Estimat Glomerular Filtration Rate , Glucose Level 138H, Calcium Level 9.0 , Phosphorus Level 3.0, Magnesium Level 2.3, Total Bilirubin 0.4, Aspartate Amino Transf (AST/SGOT) 13L, Alanine Aminotransferase (ALT/SGPT) 16, Alkaline Phosphatase 58, Total Protein 7.5, Albumin 3.3L, Globulin 4.2, Albumin/Globulin Ratio 0.8L Current Medications Medications (Trade) Dose Ordered Sig/Marty Route PRN Reason Start Time Stop Time Status Last Admin Dose Admin Acetaminophen/ Hydrocodone Bitart ([place] 5/325) 1 tab Q4H PRN ORAL Moderate Pain (Pain Scale 4-6) 06/14/18 09:15 06/21/18 09:14 Albuterol/ Ipratropium (Albuterol/ Ipratropium) 3 ml Q4H PRN HHN dyspnea 06/12/18 13:15 06/17/18 13:14 06/13/18 20:27 Carvedilol (Coreg) 25 mg Q12HR ORAL 06/12/18 21:00 07/12/18 20:59 06/14/18 08:22 Dextrose (Dextrose 50%) 25 ml Q30M PRN IV Hypoglycemia 06/12/18 13:15 07/12/18 13:14 Dextrose (Dextrose 50%) 50 ml Q30M PRN IV Hypoglycemia 06/12/18 13:15 07/12/18 13:14 Heparin Sodium (Porcine) (Heparin 5000 units/ml) 5,000 units EVERY 12 HOURS SUBQ 06/12/18 21:00 07/12/18 20:59 06/14/18 08:23 Hydroxychloroquine Sulfate (Plaquenil) 200 mg BID ORAL 06/12/18 18:00 07/12/18 17:59 06/14/18 08:22 Lorazepam (Ativan 2mg/ml 1ml) 0.5 mg Q4H PRN IV For Anxiety 06/12/18 13:15 06/19/18 13:14 Nitroglycerin (Ntg) 0.4 mg Q5MIN X 3 DOSES PRN SL Prn Chest Pain 06/12/18 14:00 07/12/18 13:59 Ondansetron HCl (Zofran) 4 mg Q6H PRN IVP Nausea & Vomiting 06/12/18 13:15 07/12/18 13:14 Piperacillin Sod/ Tazobactam Sod 3.375 gm/Sodium Chloride 110 ml @ 27.5 mls/hr EVERY 8 HOURS IVPB 06/12/18 17:00 06/17/18 16:59 06/14/18 05:41 Pneumococcal Polyvalent Vaccine (Pneumovax) 0.5 ml ONCE ONCE IM 06/14/18 08:00 06/14/18 08:01 UNV Promethazine HCl/ Codeine (Phenergan with Codeine) 5 ml Q6H PRN ORAL cough 06/12/18 13:15 07/12/18 13:14 06/14/18 04:55 Sitagliptin Phosphate (Januvia) 100 mg DAILY ORAL 06/13/18 09:00 07/13/18 08:59 06/14/18 08:22 Temazepam (Restoril) 15 mg HSPRN PRN ORAL Insomnia 06/12/18 21:00 06/19/18 20:59 06/13/18 21:47 Zaheer Hidalgo MD Jun 14, 2018 12:27
--- NOTE | 2018-06-14 12:55 | NUR ---
NURSE NOTES: Contacted Dr. Lowe regarding clearance instructions form Dr. Walters. Per Dr. Lowe patient is cleared from cardiology perspective. Noted.
--- NOTE | 2018-06-14 15:59 | NUR ---
NURSE NOTES: Patient received via guerrney from Tele per nurse giving report, pt is ambulatory. Admitted for palpitations. Pt able to verbalize known needs. Current plan of care will be followed
[2018-06-14 16:00] VITALS: BP 135/75
[2018-06-14] MEDS ORDERED: Nitroglycerin Subl 0.4mg tab SL PRN (16:15)
[2018-06-14] MEDS ORDERED: Promethazine/Codeine 5ml UD ORAL PRN (17:00)
[2018-06-14] MEDS ORDERED: Albuterol/Ipratropium 3ml neb HHN PRN (17:15)
[2018-06-14] MEDS ORDERED: LORazepam Inj 2mg/ml 1ml IV PRN (17:15)
--- NOTE | 2018-06-14 19:25 | Cardiology Progress Note ---
Assessment/Plan Assessment/Plan 1. Dyspnea, this is most likely secondary to acute exacerbation of asthma. 2D echocardiography has shown normal LV systolic function with LVEF at 65%. 2. History of coronary artery disease, status post quadruple coronary artery bypass graft surgery, stable. A 12-lead electrocardiogram does not show any acute ischemic features. 3. History of diabetes mellitus. 4. History of cerebrovascular accident with no residual deficit. 5. Vertigo, questionable presyncope, questionable vasovagal reaction. Subjective Subjective Sinus rhythm at rate of 64. Objective Last 24 Hour Vital Signs Date Time Temp Pulse Resp B/P (MAP) Pulse Ox O2 Delivery O2 Flow Rate FiO2 06/14/18 12:00 64 06/14/18 12:00 98.3 74 16 114/69 (84) 100 06/14/18 08:56 Room Air 06/14/18 08:22 63 123/63 06/14/18 08:00 71 06/14/18 08:00 98.2 63 18 123/63 (83) 96 06/14/18 04:00 97.7 78 18 122/59 (80) 95 06/14/18 04:00 71 06/14/18 00:00 97.5 73 18 116/61 (79) 95 06/14/18 00:00 75 06/13/18 21:00 Room Air 06/13/18 20:41 74 139/80 06/13/18 20:31 74 22 98 Room Air 21 06/13/18 20:31 21 06/13/18 20:00 75 06/13/18 20:00 97.3 75 18 139/80 (99) 95 Intake and Output 06/13/18 06/14/18 18:59 06:59 Intake Total 760 ml 350 ml Output Total 300 ml Balance 460 ml 350 ml Intake Oral 760 ml 240 ml IV Total 110 ml Output Urine Total 300 ml # Voids 3 # Bowel Movements 3 2D Echo: LVEF 65%, Mild LVH, Grade I LVDD, RVSP 25 mmHg Laboratory Tests Test 06/14/18 07:28 White Blood Count 14.7 K/UL (4.8-10.8) #H Red Blood Count 4.93 M/UL (4.70-6.10) Hemoglobin 14.8 G/DL (14.2-18.0) Hematocrit 44.9 % (42.0-52.0) Mean Corpuscular Volume 91 FL (80-99) Mean Corpuscular Hemoglobin 30.0 PG (27.0-31.0) Mean Corpuscular Hemoglobin Concent 32.9 G/DL (32.0-36.0) Red Cell Distribution Width 13.3 % (11.6-14.8) Platelet Count 222 K/UL (150-450) Mean Platelet Volume 8.0 FL (6.5-10.1) Neutrophils (%) (Auto) 80.8 % (45.0-75.0) H Lymphocytes (%) (Auto) 12.4 % (20.0-45.0) L Monocytes (%) (Auto) 6.2 % (1.0-10.0) Eosinophils (%) (Auto) 0.1 % (0.0-3.0) Basophils (%) (Auto) 0.5 % (0.0-2.0) Sodium Level 139 MMOL/L (136-145) Potassium Level 4.2 MMOL/L (3.5-5.1) Chloride Level 105 MMOL/L (98-107) Carbon Dioxide Level 28 MMOL/L (21-32) Anion Gap 6 mmol/L (5-15) Blood Urea Nitrogen 19 mg/dL (7-18) H Creatinine 1.2 MG/DL (0.55-1.30) Estimat Glomerular Filtration Rate mL/min (>60) Glucose Level 138 MG/DL (74-106) H Calcium Level 9.0 MG/DL (8.5-10.1) Phosphorus Level 3.0 MG/DL (2.5-4.9) Magnesium Level 2.3 MG/DL (1.8-2.4) Total Bilirubin 0.4 MG/DL (0.2-1.0) Aspartate Amino Transf (AST/SGOT) 13 U/L (15-37) L Alanine Aminotransferase (ALT/SGPT) 16 U/L (12-78) Alkaline Phosphatase 58 U/L (46-116) Total Protein 7.5 G/DL (6.4-8.2) Albumin 3.3 G/DL (3.4-5.0) L Globulin 4.2 g/dL Albumin/Globulin Ratio 0.8 (1.0-2.7) L Microbiology Date/Time Source Procedure Growth Status 06/12/18 11:45 Blood Blood Culture - Preliminary NO GROWTH AFTER 24 HOURS Resulted 06/12/18 10:30 Blood Blood Culture - Preliminary NO GROWTH AFTER 24 HOURS Resulted 06/12/18 11:17 Nasal Nares Influenza Types A,B Antigen (GARETT) - Final Complete Objective GENERAL: The patient is a very pleasant 73-year-old gentleman, in no apparent respiratory distress. Alert and oriented x4. HEENT: Atraumatic and normocephalic. Anicteric. Pupils are equal, round, and reactive to light and accommodation. Extraocular muscles intact. NECK: JVP is less than 5 cm. No carotid bruits. Carotid upstrokes 2+ bilaterally. CVS: Midsternal sternotomy scar is evident. Normal S1, S2. Regular rate and rhythm. No murmurs, gallops, or rubs. PMI is at fourth intercostal space in the midclavicular line. LUNGS: Diminished breath sounds with expiratory rhonchi throughout both lungs. No crackles. ABDOMEN: Soft, nontender, and nondistended. No hepatosplenomegaly. Positive bowel sounds. EXTREMITIES: No evidence of edema, clubbing, or cyanosis. Deni Lowe MD Jun 14, 2018 19:25
--- NOTE | 2018-06-14 19:30 | NUR ---
NURSE NOTES: RECEIVED PATIENT LYING IN BED, AWAKE, ALERT/ORIENTED X4, VERY TALKATIVE/PLEASANT, DENIES PAIN. HEARING DEFICIT LEFT EAR, MUST COMMUNICATE ON RIGHT SIDE OF PATIENT. NO SIGNS AND SYMPTOMS OF ACUTE CARDIO RESPIRATORY DISTRESS/SHORTNESS OF BREATH, DENIES CHEST PAIN, NO PERIPHERAL EDEMA NOTED. ABDOMEN OBESE, SOFT, BOWEL SOUNDS AUDIBLE, NO COMPLAINTS OF GI DISCOMFORT, NO N/V/D. SIDE RAILS UP X2 FOR MOBILITY, BED IN LOWEST POSITION FOR SAFETY. ENCOURAGED PATIENT TO UTILIZE CALL LIGHT FOR ASSISTANCE, VERBALIZED UNDERSTANDING. NAD. WILL MONITOR CLOSELY FOR SAFETY/NEEDS.
[2018-06-14 20:00] VITALS: BP 119/68
--- NOTE | 2018-06-14 21:54 | NUR ---
HAND-OFF: Report given to Roma MEYER.
[2018-06-14] MEDS: Piperacillin/Tazobactam 3.375 GM in NS 110 ML IVPB SCH (22:40)
[2018-06-15] VITALS: BP 121/66
[2018-06-15 04:00] VITALS: BP 135/97
--- NOTE | 2018-06-15 05:49 | NUR ---
NURSE NOTES: RESTED WELL THROUGHOUT THE NIGHT, NO SIGNIFICANT CHANGE OF CONDITION NOTED. SAFETY MAINTAINED. NAD.
[2018-06-15] MEDS: Piperacillin/Tazobactam 3.375 GM in NS 110 ML IVPB SCH ×2 (06:14→14:15)
--- NOTE | 2018-06-15 06:53 | Emergency Room Report ---
History of Present Illness General Chief Complaint: Vertigo Source: Patient Present Illness HPI Patient is a 73-year-old male presented after increased vertigo-like sensation. Patient reports having multiple episodes which he felt that he was having spinning sensation worsening over the past few days. He has had associated shortness of breath. Patient stated he became diaphoretic during these episodes. 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 He reports having increased congestion and cough. He reports having some increased difficulty breathing over the past few days. He reports feeling somewhat lightheaded. Patient denies a prior history of stroke. 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 Hx Gastrointestinal Problems: Yes - DIAZ'S ESOPHAGUS Hx Neurological Problems: No Hx Cerebrovascular Accident: Yes - per pt, quadruple bypass has been done Review of Systems All Other Systems: negative except mentioned in HPI Physical Exam Vital Signs Date Time Temp Pulse Resp B/P (MAP) Pulse Ox O2 Delivery O2 Flow Rate FiO2 06/12/18 10:12 97.7 66 13 118/62 92 Room Air 06/12/18 11:51 21 Sp02 EP Interpretation: reviewed, normal General Appearance: normal inspection, alert, GCS 15, non-toxic, Chronically Ill Head: atraumatic ENT: normal ENT inspection, hearing grossly normal, normal voice Neck: normal inspection, full range of motion, supple, no bony tend Respiratory: normal inspection, no respiratory distress, no retraction, wheezing Cardiovascular #1: edema Gastrointestinal: normal inspection, normal bowel sounds, non tender, soft, no guarding, no hernia Genitourinary: no CVA tenderness Musculoskeletal: normal inspection, back normal, normal range of motion Neurologic: normal inspection, alert, oriented x3, responsive, warehouse sorter III-XII nml as tested, speech normal Psychiatric: normal inspection, judgement/insight normal, mood/affect normal Skin: normal inspection, normal color, no rash Medical Decision Making Diagnostic Impression: Primary Impression: Palpitation Additional Impression: COPD (chronic obstructive pulmonary disease) ER Course . Patient presented for dizziness. Differential diagnosis include was not limited to CVA, intracranial hemorrhage, orthostatic hypotension, vertigo, anemia, pulmonary embolism among others. Because of complexity of patient's case laboratory testing and imaging studies were ordered. Patient was noted to have some wheezing on exam. He was given breathing treatments. EKG interpreted by me showed normal sinus rhythm without acute ST or T wave changes. Patient was noted to have some improvement in respirations after breathing treatment. Given the patient's concerning symptomatology patient will be admitted for further evaluation and treatment. Dr. Delano Walters was contacted for inpatient management Laboratory Tests Test 06/13/18 07:09 06/14/18 07:28 White Blood Count 9.7 K/UL (4.8-10.8) 14.7 K/UL (4.8-10.8) #H Red Blood Count 5.11 M/UL (4.70-6.10) 4.93 M/UL (4.70-6.10) Hemoglobin 15.3 G/DL (14.2-18.0) 14.8 G/DL (14.2-18.0) Hematocrit 46.3 % (42.0-52.0) 44.9 % (42.0-52.0) Mean Corpuscular Volume 91 FL (80-99) 91 FL (80-99) Mean Corpuscular Hemoglobin 29.9 PG (27.0-31.0) 30.0 PG (27.0-31.0) Mean Corpuscular Hemoglobin Concent 33.0 G/DL (32.0-36.0) 32.9 G/DL (32.0-36.0) Red Cell Distribution Width 13.1 % (11.6-14.8) 13.3 % (11.6-14.8) Platelet Count 206 K/UL (150-450) 222 K/UL (150-450) Mean Platelet Volume 8.0 FL (6.5-10.1) 8.0 FL (6.5-10.1) Neutrophils (%) (Auto) % (45.0-75.0) 80.8 % (45.0-75.0) H Lymphocytes (%) (Auto) % (20.0-45.0) 12.4 % (20.0-45.0) L Monocytes (%) (Auto) % (1.0-10.0) 6.2 % (1.0-10.0) Eosinophils (%) (Auto) % (0.0-3.0) 0.1 % (0.0-3.0) Basophils (%) (Auto) % (0.0-2.0) 0.5 % (0.0-2.0) Differential Total Cells Counted 100 Neutrophils % (Manual) 86 % (45-75) H Lymphocytes % (Manual) 11 % (20-45) L Monocytes % (Manual) 2 % (1-10) Eosinophils % (Manual) 0 % (0-3) Basophils % (Manual) 0 % (0-2) Band Neutrophils 1 % (0-8) Platelet Estimate Adequate Platelet Morphology Normal Red Blood Cell Morphology Normal Sodium Level 140 MMOL/L (136-145) 139 MMOL/L (136-145) Potassium Level 4.5 MMOL/L (3.5-5.1) 4.2 MMOL/L (3.5-5.1) Chloride Level 105 MMOL/L (98-107) 105 MMOL/L (98-107) Carbon Dioxide Level 25 MMOL/L (21-32) 28 MMOL/L (21-32) Anion Gap 10 mmol/L (5-15) 6 mmol/L (5-15) Blood Urea Nitrogen 23 mg/dL (7-18) H 19 mg/dL (7-18) H Creatinine 1.3 MG/DL (0.55-1.30) 1.2 MG/DL (0.55-1.30) Estimate Glomerular Filtration Rate mL/min (>60) mL/min (>60) Glucose Level 205 MG/DL (74-106) H 138 MG/DL (74-106) H Calcium Level 9.1 MG/DL (8.5-10.1) 9.0 MG/DL (8.5-10.1) Phosphorus Level 3.0 MG/DL (2.5-4.9) Magnesium Level 2.3 MG/DL (1.8-2.4) Total Bilirubin 0.4 MG/DL (0.2-1.0) Aspartate Amino Transferase (AST) 13 U/L (15-37) L Alanine Aminotransferase (ALT) 16 U/L (12-78) Alkaline Phosphatase 58 U/L (46-116) Total Protein 7.5 G/DL (6.4-8.2) Albumin 3.3 G/DL (3.4-5.0) L Globulin 4.2 g/dL Albumin/Globulin Ratio 0.8 (1.0-2.7) L EKG Diagnostic Results Rate: normal Rhythm: NSR ST Segments: no acute changes Last Vital Signs Date Time Temp Pulse Resp B/P (MAP) Pulse Ox O2 Delivery O2 Flow Rate FiO2 06/15/18 04:00 98.2 62 20 135/97 (110) 06/15/18 00:00 96 06/14/18 21:00 Room Air 06/13/18 20:31 21 Status: unchanged Disposition: ADMITTED INPATIENT Condition: Stable Referrals: Delano Walters DO (PCP) Dickson Aguiar MD Jun 15, 2018 06:53
--- NOTE | 2018-06-15 06:59 | NUR ---
HAND-OFF: Report given to jonathan laurent.
[2018-06-15 08:00] VITALS: BP 156/85
[2018-06-15] MEDS: Carvedilol 25mg Tab ORAL SCH (08:46)
[2018-06-15] MEDS: Heparin 5000 units/ml inj SUBQ SCH (08:48)
[2018-06-15 08:51] LABS: BASOPHILS % (AUTO) 0.4 % (0.0-2.0); HEMATOCRIT 45.2 % (42.0-52.0); HEMOGLOBIN 14.7 G/DL (14.2-18.0); LYMPHOCYTES % (AUTO) 16.9 % (20.0-45.0); MEAN CORPUSCULAR VOLUME 92 FL (80-99); MONOCYTES % (AUTO) 6.1 % (1.0-10.0); NEUTROPHILS % (AUTO) 76.6 % (45.0-75.0); PLATELET COUNT 214 K/UL (150-450); RED BLOOD COUNT 4.91 M/UL (4.70-6.10); RED CELL DISTRIBUTION WIDTH 13.3 % (11.6-14.8); WHITE BLOOD COUNT 13.4 K/UL (4.8-10.8)
[2018-06-15 09:04] LABS: ANION GAP 7 mmol/L (5-15); BLOOD UREA NITROGEN 23 mg/dL (7-18); CALCIUM 9.3 MG/DL (8.5-10.1); CARBON DIOXIDE 29 MMOL/L (21-32); CHLORIDE 104 MMOL/L (98-107); CREATININE 1.2 MG/DL (0.55-1.30); POTASSIUM 4.2 MMOL/L (3.5-5.1); SODIUM 140 MMOL/L (136-145)
--- NOTE | 2018-06-15 09:06 | General Progress Note ---
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 ICD Codes: C44.02 - 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 SNOMED: 891590310 (7) Diabetes ICD Codes: E11.9 - Type 2 diabetes mellitus without complications SNOMED: 68116137 Status: stable, progressing Assessment/Plan pt diet bp bs control cbc bmp am dc if clear Subjective Constitutional: Reports: weakness Allergies: Coded Allergies: Dairy (Verified Allergy, Severe, Swollen lips, 09/29/15) GRAPEFRUIT (Verified Allergy, Intermediate, Rash, itching, 09/29/15) ORANGE JUICE (Verified Allergy, Intermediate, Itching, 09/29/15) POLLEN EXTRACTS (Verified Allergy, Intermediate, itching, sneezing, watery eyes, 09/29/15) All Systems: reviewed and negative except above Subjective feeling better Objective Last 24 Hour Vital Signs Date Time Temp Pulse Resp B/P (MAP) Pulse Ox O2 Delivery O2 Flow Rate FiO2 06/15/18 08:46 78 156/85 06/15/18 08:00 98.8 78 18 156/85 (108) 94 06/15/18 04:00 98.2 62 20 135/97 (110) 06/15/18 00:00 97.7 70 18 121/66 (84) 96 06/14/18 21:00 Room Air 06/14/18 20:26 73 129/68 06/14/18 20:00 97.7 68 19 119/68 (85) 93 06/14/18 16:00 97.5 70 18 135/75 (95) 98 66 06/14/18 12:00 64 06/14/18 12:00 98.3 74 16 114/69 (84) 100 Intake and Output 06/14/18 06/15/18 19:00 07:00 Intake Total 240 ml 830.0 ml Balance 240 ml 830.0 ml Intake Oral 240 ml 720 ml IV Total 110.0 ml # Voids 1 2 # Bowel Movements 1 Laboratory Tests 06/15/18 07:16: White Blood Count 13.4H, Red Blood Count 4.91, Hemoglobin 14.7, Hematocrit 45.2 , Mean Corpuscular Volume 92, Mean Corpuscular Hemoglobin 30.0, Mean Corpuscular Hemoglobin Concent 32.6, Red Cell Distribution Width 13.3, Platelet Count 214, Mean Platelet Volume 7.8, Neutrophils (%) (Auto) 76.6H, Lymphocytes ( %) (Auto) 16.9L, Monocytes (%) (Auto) 6.1, Eosinophils (%) (Auto) 0.0, Basophils (%) (Auto) 0.4, Sodium Level 140, Potassium Level 4.2, Chloride Level 104, Carbon Dioxide Level 29, Anion Gap 7, Blood Urea Nitrogen 23H, Creatinine 1.2, Estimat Glomerular Filtration Rate , Glucose Level 126H, Calcium Level 9.3 Height (Feet): 6 Height (Inches): 0.00 Weight (Pounds): 195 General Appearance: lethargic EENT: normal ENT inspection Neck: normal alignment Cardiovascular: normal peripheral pulses, normal rate, regular rhythm Respiratory/Chest: chest wall non-tender, lungs clear, normal breath sounds Abdomen: normal bowel sounds, non tender, soft Extremities: normal inspection Edema: no edema noted Arm (L), no edema noted Arm (R), no edema noted Leg (L), no edema noted Leg (R), no edema noted Pedal (L), no edema noted Pedal (R), no edema noted Generalized Neurologic: responsive, motor weakness Skin: normal pigmentation, warm/dry Delano Walters DO Jun 15, 2018 09:06
--- NOTE | 2018-06-15 10:00 | NUR ---
NURSE NOTES: PT STATES THAT DR. WILDER HAD ORDER TO DISCHARGE HIM YESTERDAY BUT DR HIRSCH HELD THE DISCHARGE UNTIL TODAY. PT INQUIRES ABOUT HIS DISCHARGE STATUS BECAUSE HE HAS TO GO HOME BECAUSE HIS CATS ARE ALONE AT HOME FOR THE THIRD DAY TODAY. PT DOES NOT HAVE ANYONE TO LOOK AFTER HIS CATS WHILE HOSPITALIZED. RN LEFT MESSAGE FOR DR. HIRSCH REGARDING DISCHARGE STATUS. PT IN NO APPARENT DISTRESS AT THIS TIME.
--- NOTE | 2018-06-15 11:32 | NUR ---
NURSE NOTES: PER DR. HIRSCH, PT CAN BE DISCHARGED HOME WITH HOSPITAL MEDICATIONS EXCEPT FOR PRNs. RN LEFT MESSAGE FOR MD THAT PT IS CURRENTLY ON IV ZOSYN 3.375GM AND NEEDS PRESCRIPTION FOR PREDNISONE 40MG DAILY.
[2018-06-15 12:00] VITALS: BP 164/82
[2018-06-15 13:00] VITALS: BP 120/72
--- NOTE | 2018-06-15 14:15 | NUR ---
NURSE NOTES: PT DISCONTINUED IV ACCESS AND SIGNED OUT AMA. PT STATES HE CANNOT WAIT FOR THE DOCTOR BECAUSE HIS CATS ARE ALONE FOR THE THIRD DAY TODAY. PT STATES HE MADE AN APPOINTMENT WITH DR. WILDER'S OFFICE FOR THIS COMING SUNDAY. PT EDUCATED TO CALL EMERGENCY SERVICES IF HE FEELS SOB, HAS DIFFICULTY BREATHING, FEELS HEART PALPITATIONS. PT VERBALIZED UNDERSTANDING. PT RECEIVED HIS HOME MEDICATIONS FROM PHARMACY. PT HAS ALL BELONGINGS AND SIGNED BELONGINGS SHEET. PT SIGNED AMA FORM. DR. HIRSCH AND DR. WILDER MADE AWARE OF AMA.
--- NOTE | 2018-06-17 08:23 | Discharge Summary ---
Discharge Summary Discharge Summary _ DATE OF ADMISSION: 06/12/2018 DATE OF DISCHARGE: 06/15/2018. Patient signed AGAINST MEDICAL ADVICE. REASON FOR ADMISSION: 73 years old male past medical history of COPD/asthma, hypertension, diabetes mellitus,Barett esophagitis, squamous cell l carcinoma of lip, status post treatment , presented to emergency department with spinning sensation worsening over the past few days. Patient reported associated shortness of breath. Patient reported being be Becoming diaphoretic during the episode. Patient noted that also by 21 chest x-ray revealed cardiomegaly no acute process. Chest x-ray revealed cardiomegaly no acute cardiopulmonary pathology. Increased congestion and cough. Along with a difficulty breathing. He felt sometimes lightheaded. No history of smoking. Upon evaluation vital signs are stable. Laboratory workup revealed no leukocytosis, stable hemoglobin hematocrit. Stable electrolytes and renal parameters. Lactic acid 2.3. Urinalysis revealed no evidence of UTI. EKG revealed normal sinus rhythm no acute ischemic changes Chest x-ray revealed cardiomegaly no acute cardiopulmonary pathology. CT of the head was negative for acute intracranial bleeding or mass-effect. Thickening of the scalp near the vertex possibly indicative of contusion. Patient admitted for further management CONSULTANTS: hydraulic jack operator Dr. Crabtree pulmonary Dr. Hidalgo pain specialist Dr. Stewart [facility] COURSE: Patient admitted and started on intravenous hydration. Pulmonology and cardiology closely followed . Supplemental oxygen provided to keep pulse oximetry above 90%. Pulmonary toilet provided with nebulizing therapy around the clock and as needed. Patient was started on intravenous steroids with gradual tapering down. Patient was started on empiric antibiotic. Blood cultures were negative. Influenza screen test was negative. CXR revealed no acute cardiopulmonary pathology. Antitussive provided as needed DVT prophylaxis provided. Influenza and pneumonia vaccine provided during hospitalization. Science Consultant followed. Echocardiogram revealed preserved ejection fraction 55% with mild left ventricular hypertrophy. Right ventricular systolic pressure 25. No evidence of wall motion abnormality. 12-lead EKG did not show any acute ischemic features. No evidence of arrhythmia. Per hydraulic jack operator , dyspnea was likely secondary to acute asthma exacerbation. Blood pressure was managed with beta-jaquan and remained stable. Blood sugar was managed with Januvia. Sliding scale of insulin was on board as needed. Added on intravenous hydration. Follow Pain management was provided as per pain specialist recommendation. Bowel regimen instituted. Supportive care provided. Patient was working with physical therapist. Fall precaution maintained. No further vertigo. Patient decided to sign AGAINST MEDICAL ADVICE. The risks and consequences of signing AGAINST MEDICAL ADVICE were discussed with patient in detail. Patient verbalized understanding, nevertheless signed AMA form and left. FINAL DIAGNOSES: Acute asthma exacerbation History of coronary artery disease ,status post quadruple coronary artery bypass graft surgery Diabetes mellitus Cerebrovascular accident , with no residual deficits Vertigo , possible presyncope versus vasovagal reaction Squamous Cell carcinoma of lip, status post treatment Lumbar degenerative disc disease Lumbar spondylosis I have been assigned to dictate discharge summary for this account. I was not involved in the patient's management. Cindy Andre NP Jun 17, 2018 08:23
--- NOTE | 2018-06-17 18:02 | Cardiology Report ---
APPROVED REPORT EKG Measurement Heart [id number] CO 196P [id number] Normal sinus rhythm Septal infarct, age undetermined Abnormal ECG
== END 2018-06-15 14:15 | disposition left against medical advice (07) | DRG 203 ==
LOC: EMR 10:50 → 2E 11:42 → EDBEDREQ 14:33 → 4E 06-14 15:49
DX: J45.901 Unspecified asthma with (acute) exacerbation (principal); R50.9 Fever, unspecified; E11.9 Type 2 diabetes mellitus without complications; Z95.1 Presence of aortocoronary bypass graft; I11.9 Hypertensive heart disease without heart failure; Z79.52 Long term (current) use of systemic steroids; I25.10 Atherosclerotic heart disease of native coronary artery without angina pectoris; C44.02 Squamous cell carcinoma of skin of lip; R00.2 Palpitations; Z86.73 Personal history of transient ischemic attack (TIA), and cerebral infarction without residual deficits; J44.9 Chronic obstructive pulmonary disease, unspecified; R42 Dizziness and giddiness; R55 Syncope and collapse; C00.9 Malignant neoplasm of lip, unspecified; M51.36 Other intervertebral disc degeneration, lumbar region; M47.896 Other spondylosis, lumbar region; Z91.018 Allergy to other foods; Z23 Encounter for immunization
CPT/HCPCS: 36415; 70450; 71045; 80048; 80053; 81003; 82550; 82553; 83605; 83735; 83880; 84100; 84484; 85007; 85025; 86710; 87040; 93005; 93306; 94640; 96360; 99285; J7620

== ENCOUNTER 2018-08-12 12:04 | Inpatient (IN) | payer MEDICARE, OTHER ==
[~2018-08-12] VITALS: Ht 172.7 cm; Wt 49.7 kg
[~2018-08-12 12:04] MED LIST changes: +CARVEDILOL25 MG ORAL; +CRESTOR40 MG ORAL; +HYDROXYCHLOROQ200 M1 PO; +KLOR-CON 88 MEQ ORAL; +PREDNISONE1 MG PO; +PRINIVIL10 MG ORAL; +TYLENOL COLD &1 EAC1 PO
[2018-08-12 12:15] VITALS: BP 146/87
--- NOTE | 2018-08-12 12:16 | NUR ---
ED Nurse Note: Pt came in from home due to vertigo since this morning, pt came 6 weeks ago for the same reason. also noted labored breathing, SAT 97% RA upon arrival. AOx4, VSS. Will cont to monitor.
[2018-08-12] MEDS ORDERED: Albuterol ud Inhalation HHN ONE (12:30)
[2018-08-12] MEDS ORDERED: Ipratropium 0.02% Inh Soln 2.5ml UD HHN ONE (12:30)
[2018-08-12] MEDS ORDERED: Meclizine 25mg tab ORAL PRN (12:30)
--- NOTE | 2018-08-12 12:37 | Emergency Room Report ---
History of Present Illness General Chief Complaint: Vertigo Source: Patient Present Illness HPI Patient had an episode of vertigo while sitting in a recliner today at home. He felt the world spinning and that his body was out of control. It lasted about 15 minutes. It's resolved at this time. He denies any chest pain or palpitations during that time. Patient denies nausea, vomiting during that time. The patient was seen here and admitted in June with the lung infection. He was evaluated for vertigo at that time and they mentioned something about poor circulation into the brain. The patient has severe COPD. He has been wheezing. He states he has been on prednisone for the last 2 years. He denies fevers or productive cough at this time. Patient's been scratching his legs. He says he believes it is eczema. He also has rashes in the back of his scalp. No dysuria or hematuria. There is no edema or calf pain. He denies headache or depression. He has poor dentition after receiving radiation therapy for squamous cell carcinoma of his lip. His osteoarthritis and walks with a cane. Allergies: Coded Allergies: Dairy (Verified Allergy, Severe, Swollen lips, 09/29/15) GRAPEFRUIT (Verified Allergy, Intermediate, Rash, itching, 09/29/15) ORANGE JUICE (Verified Allergy, Intermediate, Itching, 09/29/15) POLLEN EXTRACTS (Verified Allergy, Intermediate, itching, sneezing, watery eyes, 09/29/15) Patient History Past Medical History: see triage record Past Surgical History: CABG, appy Social History: Reports: smoking; Denies: alcohol use - Prior, drug use - Prior cocaine and THC Social History Narrative Born in [place]. 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 [employer] Reviewed Nursing Documentation: PMH: Agreed; PSxH: Agreed Nursing Documentation-PMH Past Medical History: No History, Except For Hx Cardiac Problems: Yes Hx Hypertension: Yes Hx Asthma: Yes - hay fever Hx COPD: Yes Hx Diabetes: Yes 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 Hx Gastrointestinal Problems: Yes - DIAZ'S ESOPHAGUS Hx Neurological Problems: No Hx Cerebrovascular Accident: Yes - per pt, quadruple bypass has been done Review of Systems All Other Systems: negative except mentioned in HPI Physical Exam Vital Signs Date Time Temp Pulse Resp B/P (MAP) Pulse Ox O2 Delivery O2 Flow Rate FiO2 08/12/18 12:06 98.2 83 22 146/87 93 Room Air Sp02 EP Interpretation: reviewed, abnormal - Interpreted as slightly low by me General Appearance: well appearing, no apparent distress, GCS 15 Head: normocephalic Eyes: bilateral eye normal inspection ENT: moist mucus membranes - poor dentition Neck: supple Respiratory: no respiratory distress, wheezing, expiration, inspiration Cardiovascular #1: regular rate, rhythm Cardiovascular #2: 2+ radial (R) Gastrointestinal: normal inspection, normal bowel sounds, non tender, no mass, non-distended Musculoskeletal: back normal, gait/station normal, normal range of motion Neurologic: alert, oriented x3 Skin: normal inspection, warm/dry Medical Decision Making Diagnostic Impression: Primary Impression: Vertebrobasilar insufficiency Additional Impressions: COPD (chronic obstructive pulmonary disease) Qualified Codes: J44.1 - Chronic obstructive pulmonary disease with (acute) exacerbation Steroid dependence Eosinophilia ER Course Patient presents with vertigo without nausea or vomiting and severe disorientation. Differential includes acute myocardial infarction, arrhythmia, TIA, vertebrobasilar insufficiency, cerebellar bleed amongst others. Evaluation will be with EKG, chest x-ray, CT the head and labs. An MRI will need to be performed. Also noninvasive vascular studies of the neck should also be performed. Patient is initially treated with Antivert and Zofran. Aspirin will be given if the CT scan does not show bleed or the patient has a chloride be coagulopathy. The patient's also treated with albuterol and Atrovent as he is wheezing at this time. EKG without acute changes. Chest x-ray COPD. Labs unremarkable. Eosinophilia. CT had with chronic involutional changes. Patient's breathing is improved. No further episodes of vertigo. Aspirin is given. Given symptomatology central etiology of vertigo is highly suspect. This suggest vertebrobasilar insufficiency. An MRI is indicated at some point along with neurologic consultation. Patient is admitted to telemetry under the care of . Laboratory Tests Test 08/12/18 12:30 White Blood Count 7.9 K/UL (4.8-10.8) Red Blood Count 5.22 M/UL (4.70-6.10) Hemoglobin 15.4 G/DL (14.2-18.0) Hematocrit 46.6 % (42.0-52.0) Mean Corpuscular Volume 89 FL (80-99) Mean Corpuscular Hemoglobin 29.6 PG (27.0-31.0) Mean Corpuscular Hemoglobin Concent 33.1 G/DL (32.0-36.0) Red Cell Distribution Width 13.4 % (11.6-14.8) Platelet Count 214 K/UL (150-450) Mean Platelet Volume 8.9 FL (6.5-10.1) Neutrophils (%) (Auto) 59.3 % (45.0-75.0) Lymphocytes (%) (Auto) 26.5 % (20.0-45.0) Monocytes (%) (Auto) 9.3 % (1.0-10.0) Eosinophils (%) (Auto) 3.4 % (0.0-3.0) H Basophils (%) (Auto) 1.5 % (0.0-2.0) Prothrombin Time 9.9 SEC (9.30-11.50) Prothrombin Time INR 0.9 (0.9-1.1) PTT 24 SEC (23-33) Urine Color Pale yellow Urine Appearance Clear Urine pH 5 (4.5-8.0) Urine Specific [place] 1.015 (1.005-1.035) Urine Protein Negative (NEGATIVE) Urine Glucose (UA) 3+ (NEGATIVE) H Urine Ketones Negative (NEGATIVE) Urine Blood Negative (NEGATIVE) Urine Nitrite Negative (NEGATIVE) Urine Bilirubin Negative (NEGATIVE) Urine Urobilinogen Normal MG/DL (0.0-1.0) Urine Leukocyte Esterase Negative (NEGATIVE) Sodium Level 141 MMOL/L (136-145) Potassium Level 4.1 MMOL/L (3.5-5.1) Chloride Level 104 MMOL/L (98-107) Carbon Dioxide Level 29 MMOL/L (21-32) Anion Gap 8 mmol/L (5-15) Blood Urea Nitrogen 14 mg/dL (7-18) Creatinine 1.2 MG/DL (0.55-1.30) Estimate Glomerular Filtration Rate mL/min (>60) Glucose Level 204 MG/DL (74-106) H Calcium Level 8.9 MG/DL (8.5-10.1) Total Bilirubin 0.5 MG/DL (0.2-1.0) Aspartate Amino Transferase (AST) 19 U/L (15-37) Alanine Aminotransferase (ALT) 18 U/L (12-78) Alkaline Phosphatase 59 U/L (46-116) Total Creatine Kinase 106 U/L (26-308) Troponin I 0.010 ng/mL (0.000-0.056) Pro-B-Type Natriuretic Peptide 558 pg/mL (0-125) H Total Protein 7.1 G/DL (6.4-8.2) Albumin 3.3 G/DL (3.4-5.0) L Globulin 3.8 g/dL Albumin/Globulin Ratio 0.9 (1.0-2.7) L EKG Diagnostic Results Rate: normal Rhythm: NSR ST Segments: no acute changes - QT 472 ms Rhythm Strip Diag. Results EP Interpretation: yes Rhythm: NSR, no PVC's, no ectopy Chest X-Ray Diagnostic Results Chest X-Ray Diagnostic Results : Chest X-Ray Ordered: Yes # of Views/Limited/Complete: 1 View Indication: Other EP Interpretation: Yes Interpretation: no consolidation, no effusion, no pneumothorax, other - COPD Impression: Other Electronically Signed by: Electronically signed by Jean Carlos Mckee MD CT/MRI/US Diagnostic Results CT/MRI/US Diagnostic Results : Imaging Test Ordered: Head Impression Periventricular deep white matter low attenuation consistent with chronic microvascular ischemic change Last Vital Signs Date Time Temp Pulse Resp B/P (MAP) Pulse Ox O2 Delivery O2 Flow Rate FiO2 08/12/18 21:13 75 114/57 08/12/18 20:00 97.0 19 96 08/12/18 15:00 Room Air 08/12/18 13:28 4.0 21 Status: improved Disposition: ADMITTED INPATIENT Condition: Serious Jean Carlos Mckee MD Aug 12, 2018 12:37
[2018-08-12 13:05] LABS: APPEARANCE,URINE CLEAR; BASOPHILS % (AUTO) 1.5 % (0.0-2.0); BILIRUBIN, URINE NEGATIVE (NEGATIVE); COLOR,URINE PALE YELLOW; EOSINOPHILS % (AUTO) 3.4 % (0.0-3.0); GLUCOSE, URINE (UA) 3+ (NEGATIVE); HEMATOCRIT 46.6 % (42.0-52.0); HEMOGLOBIN 15.4 G/DL (14.2-18.0); KETONES,URINE NEGATIVE (NEGATIVE); LEUKOCYTE ESTERASE ,URINE NEGATIVE (NEGATIVE); LYMPHOCYTES % (AUTO) 26.5 % (20.0-45.0); MEAN CORPUSCULAR VOLUME 89 FL (80-99); MONOCYTES % (AUTO) 9.3 % (1.0-10.0); NEUTROPHILS % (AUTO) 59.3 % (45.0-75.0); NITRITE,URINE NEGATIVE (NEGATIVE); PH,URINE 5 (4.5-8.0); PLATELET COUNT 214 K/UL (150-450); PROTEIN,URINE NEGATIVE (NEGATIVE); RED BLOOD COUNT 5.22 M/UL (4.70-6.10); RED CELL DISTRIBUTION WIDTH 13.4 % (11.6-14.8); UROBILINOGEN,URINE NORMAL MG/DL (0.0-1.0); WHITE BLOOD COUNT 7.9 K/UL (4.8-10.8)
[2018-08-12 13:10] LABS: INR 0.9 (0.9-1.1)
[2018-08-12 13:18] LABS: ANION GAP 8 mmol/L (5-15); BLOOD UREA NITROGEN 14 mg/dL (7-18); CALCIUM 8.9 MG/DL (8.5-10.1); CARBON DIOXIDE 29 MMOL/L (21-32); CHLORIDE 104 MMOL/L (98-107); CREATININE 1.2 MG/DL (0.55-1.30); POTASSIUM 4.1 MMOL/L (3.5-5.1); SODIUM 141 MMOL/L (136-145)
[2018-08-12 13:28] VITALS: BP 133/82
[2018-08-12 13:28] LABS: ALANINE AMINOTRANSFERASE 18 U/L (12-78); ALBUMIN 3.3 G/DL (3.4-5.0); ALBUMIN/GLOBULIN RATIO 0.9 (1.0-2.7); ALKALINE PHOSPHATASE 59 U/L (46-116); ASPARTATE AMINO TRANSFERASE 19 U/L (15-37); BILIRUBIN,TOTAL 0.5 MG/DL (0.2-1.0); CREATINE KINASE 106 U/L (26-308)
--- NOTE | 2018-08-12 13:39 | Diagnostic Imaging Report ---
Indications: Vertigo since this morning Technique: Spiral acquisitions obtained through the brain. Angled axial and coronal 5 x 5 mm slices were reconstructed. Total dose length product 1506.28 mGycm. CTDI vol(s) 70.38 mGy. Dose reduction achieved using automated exposure control Comparison: None. Findings: There is suggestion of scalp soft tissue thickening or contusion at the vertex. No acute intracranial hemorrhage nor edema. No mass effect nor midline shift. Normal-sized ventricles and extra-axial CSF spaces. There is minimal periventricular deep white matter low-attenuation, consistent with chronic ischemic change. Intact calvarium. Visualized orbits and sinuses are unremarkable. Impression: Negative for acute intracranial bleed or mass effect Mild periventricular deep white matter low-attenuation consistent with chronic microvascular ischemic change Possible scalp soft tissue contusion of the vertex The CT scanner at [facility] is accredited by the [employer] and the scans are performed using protocols designed to limit radiation exposure to as low as reasonably achievable to attain images of sufficient resolution adequate for diagnostic evaluation.
--- NOTE | 2018-08-12 14:20 | NUR ---
NURSE NOTES: Received phone/bedside report from Diego MCGEE. Pt. a/o x 4. Pt. able to ambulates from gurney to bed. Pleasant and cooperative. No sign of distress. Denies pain at present. IV site at right FA #20g. in placed SL. Bed in low position, locked. Call light within reach. Will cont. to monitor.
[2018-08-12 14:30] VITALS: BP 118/82
[2018-08-12] MEDS ORDERED: LORazepam Inj 2mg/ml 1ml IV PRN (14:30)
[2018-08-12] MEDS ORDERED: Morphine Sulfate 2mg/ml Inj(IV/IM USE ONLY) IVP PRN (14:30)
[2018-08-12] MEDS ORDERED: Nitroglycerin Subl 0.4mg tab SL PRN (14:30)
[2018-08-12] MEDS ORDERED: Albuterol/Ipratropium 3ml neb HHN PRN (14:30)
[2018-08-12] MEDS ORDERED: Miralax 17gm pkt ORAL PRN (14:30)
[2018-08-12] MEDS ORDERED: Mylanta II UD 30ml ORAL PRN (14:30)
[2018-08-12] MEDS ORDERED: Albuterol 90mcg Inhaler 8gm INH SCH (14:30)
--- NOTE | 2018-08-12 14:30 | NUR ---
TRANSFER TO FLOOR: Patient transferred to Telemetry as ordered, per . Report given to EVERARDO Sanchez Addendum: 08/12/18 at 1453 by BPARENTELA TRANSFER TO FLOOR: Patient transferred to Telemetry as ordered, per Dr. Delano Walters. Report given to EVERARDO Dubois
--- NOTE | 2018-08-12 14:56 | Diagnostic Imaging Report ---
Indication: Shortness of breath Technique: One view of the chest Comparison: 06/12/2018 Findings: The heart is enlarged. The lungs and pleural spaces are clear. There is evidence of prior CABG. No significant interim change Impression: Cardiomegaly. No acute process
[2018-08-12] MEDS: NovoLOG Insulin Flexpen SUBQ SCH ×2 (17:23→21:16)
--- NOTE | 2018-08-12 19:40 | NUR ---
NURSE NOTES: Received pt. and report from EVERARDO Dubois. Observe pt. resting in bed with both eyes closed. night monitor is in placed, IV site intact, asymptomatic and patent. Bed is in the lowest position and locked. Call light within reach. No acute distress noted at this time. Will continue plan of care.
--- NOTE | 2018-08-12 19:50 | NUR ---
HAND-OFF: Report given to Lou MCGEE. Pt. remain stable.
[2018-08-12 20:00] VITALS: BP 114/57
[2018-08-12] MEDS: Carvedilol 25mg Tab ORAL SCH (21:13)
[2018-08-12] MEDS: Heparin 5000 units/ml inj SUBQ SCH (21:17)
[2018-08-13] VITALS: BP 98/54
[2018-08-13 04:00] VITALS: BP 103/59
[2018-08-13] MEDS: NovoLOG Insulin Flexpen SUBQ SCH ×4 (06:30→21:10)
[2018-08-13 07:29] LABS: BASOPHILS % (AUTO) 1.2 % (0.0-2.0); EOSINOPHILS % (AUTO) 3.9 % (0.0-3.0); HEMATOCRIT 43.2 % (42.0-52.0); HEMOGLOBIN 14.1 G/DL (14.2-18.0); LYMPHOCYTES % (AUTO) 29.4 % (20.0-45.0); MEAN CORPUSCULAR VOLUME 91 FL (80-99); MONOCYTES % (AUTO) 9.9 % (1.0-10.0); NEUTROPHILS % (AUTO) 55.7 % (45.0-75.0); PLATELET COUNT 203 K/UL (150-450); RED BLOOD COUNT 4.77 M/UL (4.70-6.10); RED CELL DISTRIBUTION WIDTH 13.5 % (11.6-14.8); WHITE BLOOD COUNT 6.4 K/UL (4.8-10.8)
--- NOTE | 2018-08-13 07:40 | NUR ---
HAND-OFF: Report given to EVERARDO Connolly.
--- NOTE | 2018-08-13 07:43 | NUR ---
CASE MANAGEMENT:REVIEW 73 YR OLD MALE PRESENTED TO ER FROM HOME CC; VERTIGO. LABORED BREATHING SI: VERTEBROBASILAR INSUFFICIENCY. COPD 98.2 83 22 146/87 93% ON RA `GLUCOSE+204 BNP+558 IS: DUONEB HHN IV ZOFRAN MECLIZINE PO ASA PO CT HEAD CXR : TO TELEMETRY PLAN: NEURO CHECKS Q4HRS *INTERQUAL CRITERIA MET
[2018-08-13 08:00] VITALS: BP 108/69
--- NOTE | 2018-08-13 08:00 | NUR ---
NURSE NOTES: Received patient report. Patient is AAO x4. patient is steady on feet. Patient denies pain. Patient is on RA and breathing even and unlabored. Will follow up plan of care.
[2018-08-13 08:11] LABS: ALANINE AMINOTRANSFERASE 19 U/L (12-78); ALBUMIN/GLOBULIN RATIO 0.9 (1.0-2.7); ALKALINE PHOSPHATASE 51 U/L (46-116); ANION GAP 5 mmol/L (5-15); ASPARTATE AMINO TRANSFERASE 14 U/L (15-37); BILIRUBIN,TOTAL 0.6 MG/DL (0.2-1.0); BLOOD UREA NITROGEN 18 mg/dL (7-18); CALCIUM 8.5 MG/DL (8.5-10.1); CARBON DIOXIDE 32 MMOL/L (21-32); CHLORIDE 106 MMOL/L (98-107); CHOLESTEROL 175 MG/DL (< 200); CREATININE 1.4 MG/DL (0.55-1.30); HDL CHOLESTEROL 25 MG/DL (40-60); POTASSIUM 4.1 MMOL/L (3.5-5.1); SODIUM 142 MMOL/L (136-145); TRIGLYCERIDES 189 MG/DL (30-150)
[2018-08-13] MEDS: Carvedilol 25mg Tab ORAL SCH ×2 (10:10→21:22)
[2018-08-13] MEDS: Heparin 5000 units/ml inj SUBQ SCH ×2 (10:15→21:11)
[2018-08-13 12:00] VITALS: BP 105/56
--- NOTE | 2018-08-13 13:01 | Consultation ---
History of Present Illness General Date patient seen: Aug 13, 2018 Chief Complaint: Vertigo Present Illness HPI 73 year old male with hx of CABG, Asthma, Cardiomegaly, DM, presented to ER with CC of dizziness. He claims he had experienced an extracorporal event, where his soul left his body for a few minutes and he was not able to use his body. He is admitted to telemetry for further evaluation for TIA or syncope. Allergies: Coded Allergies: Dairy (Verified Allergy, Severe, Swollen lips, 09/29/15) GRAPEFRUIT (Verified Allergy, Intermediate, Rash, itching, 09/29/15) ORANGE JUICE (Verified Allergy, Intermediate, Itching, 09/29/15) POLLEN EXTRACTS (Verified Allergy, Intermediate, itching, sneezing, watery eyes, 09/29/15) Medication History Scheduled Albuterol Sulfate* (Proair Hfa*), 1 PUFF INH Q6H, (Reported) Carvedilol* (Carvedilol*), 25 MG ORAL BID, (Reported) Dexlansoprazole (Dexilant), 60 MG ORAL DAILY, (Reported) Folic Acid* (Folic Acid*), 1 MG ORAL DAILY, (Reported) Furosemide* (Lasix*), 40 MG ORAL DAILY, (Reported) Hydroxychloroquine Sulfate (Hydroxychloroquine Sulfate), 200 MG PO BID, ( Reported) Lisinopril* (Prinivil*), 10 MG ORAL BID, (Reported) Metformin Hcl* (Metformin Hcl*), 500 MG ORAL TWICE A DAY, (Reported) Potassium Chloride (Klor-Con 8), 8 MEQ ORAL DAILY, (Reported) Prednisone (Prednisone), 2 MG PO DAILY, (Reported) Rosuvastatin Calcium* (Crestor*), 40 MG ORAL DAILY, (Reported) Sitagliptin* (Januvia*), 100 MG ORAL DAILY, (Reported) Miscellaneous Medications Phenylephrine/Dm/Acetaminop/Gg (Tylenol Cold & Flu Severe Cplt), 1 EACH PO, ( Reported) Patient History Healthcare decision maker Resuscitation status Full Code Advanced Directive on File Past Medical/Surgical History Past Medical/Surgical History: (1) CAD (coronary artery disease) (2) HTN (hypertension) (3) History of ETOH abuse (4) 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 (5) HTN (hypertension) (6) Diabetes (7) COPD (chronic obstructive pulmonary disease) Review of Systems All Other Systems: negative except mentioned in HPI Physical Exam General Appearance: WD/WN Lines, tubes and drains: peripheral HEENT: normocephalic, atraumatic Neck: non-tender, normal alignment Respiratory/Chest: chest wall non-tender, lungs clear Breasts: no masses Cardiovascular/Chest: normal peripheral pulses Abdomen: normal bowel sounds, non tender Genitourinary/Rectal: normal genital exam Extremities: normal range of motion Skin Exam: normal pigmentation Last 24 Hour Vital Signs Date Time Temp Pulse Resp B/P (MAP) Pulse Ox O2 Delivery O2 Flow Rate FiO2 08/13/18 12:00 98.1 66 18 105/56 (72) 97 08/13/18 10:10 76 108/69 08/13/18 09:00 Nasal Cannula 2.0 08/13/18 08:03 64 08/13/18 08:00 99.7 76 18 108/69 (82) 95 08/13/18 07:11 69 12 Room Air 2.0 28 08/13/18 07:11 95 Nasal Cannula 2.0 28 08/13/18 07:11 Nasal Cannula 2.0 28 08/13/18 04:00 67 08/13/18 04:00 97.5 67 17 103/59 (74) 95 08/13/18 00:00 68 08/13/18 00:00 97.7 70 18 98/54 (69) 94 08/12/18 22:52 93 Nasal Cannula 2.0 28 08/12/18 22:52 Nasal Cannula 2.0 28 08/12/18 22:52 70 16 Room Air 2.0 28 08/12/18 21:13 75 114/57 08/12/18 21:00 Nasal Cannula 2.0 08/12/18 20:00 71 08/12/18 20:00 97.0 75 19 114/57 (76) 96 08/12/18 17:25 80 08/12/18 15:00 Room Air 08/12/18 14:30 97.2 84 21 118/82 (94) 93 08/12/18 14:28 98.5 76 23 125/72 95 Room Air 08/12/18 13:28 76 21 133/82 100 Simple Mask 4.0 21 Laboratory Tests Test 3/12/19 06:58 White Blood Count 6.4 K/UL (4.8-10.8) Red Blood Count 4.77 M/UL (4.70-6.10) Hemoglobin 14.1 G/DL (14.2-18.0) L Hematocrit 43.2 % (42.0-52.0) Mean Corpuscular Volume 91 FL (80-99) Mean Corpuscular Hemoglobin 29.5 PG (27.0-31.0) Mean Corpuscular Hemoglobin Concent 32.6 G/DL (32.0-36.0) Red Cell Distribution Width 13.5 % (11.6-14.8) Platelet Count 203 K/UL (150-450) Mean Platelet Volume 7.5 FL (6.5-10.1) Neutrophils (%) (Auto) 55.7 % (45.0-75.0) Lymphocytes (%) (Auto) 29.4 % (20.0-45.0) Monocytes (%) (Auto) 9.9 % (1.0-10.0) Eosinophils (%) (Auto) 3.9 % (0.0-3.0) H Basophils (%) (Auto) 1.2 % (0.0-2.0) Prothrombin Time 10.4 SEC (9.30-11.50) Prothromb Time International Ratio 1.0 (0.9-1.1) Activated Partial Thromboplast Time 27 SEC (23-33) Sodium Level 142 MMOL/L (136-145) Potassium Level 4.1 MMOL/L (3.5-5.1) Chloride Level 106 MMOL/L (98-107) Carbon Dioxide Level 32 MMOL/L (21-32) Anion Gap 5 mmol/L (5-15) Blood Urea Nitrogen 18 mg/dL (7-18) Creatinine 1.4 MG/DL (0.55-1.30) H Estimat Glomerular Filtration Rate mL/min (>60) Glucose Level 118 MG/DL (74-106) H Calcium Level 8.5 MG/DL (8.5-10.1) Total Bilirubin 0.6 MG/DL (0.2-1.0) Aspartate Amino Transf (AST/SGOT) 14 U/L (15-37) L Alanine Aminotransferase (ALT/SGPT) 19 U/L (12-78) Alkaline Phosphatase 51 U/L (46-116) Total Protein 6.4 G/DL (6.4-8.2) Albumin 3.0 G/DL (3.4-5.0) L Globulin 3.4 g/dL Albumin/Globulin Ratio 0.9 (1.0-2.7) L Triglycerides Level 189 MG/DL (30-150) H Cholesterol Level 175 MG/DL (< 200) LDL Cholesterol 117 mg/dL (<100) H HDL Cholesterol 25 MG/DL (40-60) L Cholesterol/HDL Ratio 7.0 (3.3-4.4) H Thyroid Stimulating Hormone (TSH) 1.831 uiU/mL (0.358-3.740) Height (Feet): 5 Height (Inches): 8.00 Weight (Pounds): 210 Medications Current Medications Medications (Trade) Dose Ordered Sig/Marty Route PRN Reason Start Time Stop Time Status Last Admin Dose Admin Acetaminophen (Tylenol) 650 mg Q4H PRN ORAL fever 08/12/18 14:30 09/11/18 14:29 Al Hydroxide/Mg Hydroxide (Mylanta II) 30 ml Q6H PRN ORAL dyspepsia 08/12/18 14:30 09/11/18 14:29 Albuterol/ Ipratropium (Albuterol/ Ipratropium) 3 ml Q4H PRN HHN Shortness of Breath 08/12/18 14:30 08/17/18 14:29 Carvedilol (Coreg) 25 mg Q12HR ORAL 08/12/18 21:00 09/11/18 20:59 08/13/18 10:10 Dextrose (Dextrose 50%) 25 ml Q30M PRN IV Hypoglycemia 08/12/18 14:30 09/11/18 14:29 Dextrose (Dextrose 50%) 50 ml Q30M PRN IV Hypoglycemia 08/12/18 14:30 09/11/18 14:29 Heparin Sodium (Porcine) (Heparin 5000 units/ml) 5,000 units EVERY 12 HOURS SUBQ 08/12/18 21:00 09/11/18 20:59 08/13/18 10:15 Hydroxychloroquine Sulfate (Plaquenil) 200 mg BID ORAL 08/12/18 18:00 09/11/18 17:59 08/13/18 10:09 Insulin Aspart (NovoLOG) BEFORE MEALS AND HS SUBQ 08/12/18 16:30 09/11/18 16:29 08/13/18 12:26 Lorazepam (Ativan 2mg/ml 1ml) 0.5 mg Q4H PRN IV For Anxiety 08/12/18 14:30 08/19/18 14:29 Morphine Sulfate (Morphine Sulfate) 1 mg Q4H PRN IVP For Pain 7-10 08/12/18 14:30 08/19/18 14:29 Nitroglycerin (Ntg) 0.4 mg Q5M X 3 DOSES PRN SL Prn Chest Pain 08/12/18 14:30 09/11/18 14:29 Ondansetron HCl (Zofran) 4 mg Q6H PRN IVP Nausea & Vomiting 08/12/18 14:30 09/11/18 14:29 Polyethylene Glycol (Miralax) 17 gm HSPRN PRN ORAL Constipation 08/12/18 14:30 09/11/18 14:29 Prednisone (predniSONE) 2 mg DAILY ORAL 08/13/18 09:00 09/12/18 08:59 08/13/18 10:10 Sitagliptin Phosphate (Januvia) 100 mg DAILY ORAL 08/13/18 09:00 09/12/18 08:59 08/13/18 10:10 Temazepam (Restoril) 15 mg HSPRN PRN ORAL Insomnia 08/12/18 14:30 08/19/18 14:29 Assessment/Plan Problem List: (1) Acute encephalopathy ICD Codes: G93.40 - Encephalopathy, unspecified SNOMED: 69633461, 224060502 (2) CAD (coronary artery disease) ICD Codes: I25.10 - CAD (coronary artery disease) SNOMED: 02505438 (3) History of coronary artery bypass graft ICD Codes: Z95.1 - Presence of aortocoronary bypass graft SNOMED: 317678671, 491097558 (4) History of ETOH abuse ICD Codes: F10.10 - History of ETOH abuse SNOMED: 113263428 (5) Diabetes ICD Codes: E11.9 - Type 2 diabetes mellitus without complications SNOMED: 04303904 Assessment/Plan telemetry monitoring neuro evaluation sliding scale diabetic diet check electrolytes dvt prophylaxis. Zaheer Hidalgo MD Aug 13, 2018 13:01
[2018-08-13 16:00] VITALS: BP 111/66
--- NOTE | 2018-08-13 17:03 | Cardiology Report ---
APPROVED REPORT EKG Measurement Heart [id number] MD 182P-3 [id number] Normal sinus rhythm Nonspecific T wave abnormality Prolonged QT Abnormal ECG
--- NOTE | 2018-08-13 19:05 | Cardiology Progress Note ---
Assessment/Plan Assessment/Plan [id number] Objective Last 24 Hour Vital Signs Date Time Temp Pulse Resp B/P (MAP) Pulse Ox O2 Delivery O2 Flow Rate FiO2 08/13/18 16:09 76 08/13/18 16:00 97.8 64 18 111/66 (81) 96 08/13/18 12:42 66 08/13/18 12:00 98.1 66 18 105/56 (72) 97 08/13/18 10:10 76 108/69 08/13/18 09:00 Nasal Cannula 2.0 08/13/18 08:03 64 08/13/18 08:00 99.7 76 18 108/69 (82) 95 08/13/18 07:11 69 12 Room Air 2.0 28 08/13/18 07:11 95 Nasal Cannula 2.0 28 08/13/18 07:11 Nasal Cannula 2.0 28 08/13/18 04:00 67 08/13/18 04:00 97.5 67 17 103/59 (74) 95 08/13/18 00:00 68 08/13/18 00:00 97.7 70 18 98/54 (69) 94 08/12/18 22:52 93 Nasal Cannula 2.0 28 08/12/18 22:52 Nasal Cannula 2.0 28 08/12/18 22:52 70 16 Room Air 2.0 28 08/12/18 21:13 75 114/57 08/12/18 21:00 Nasal Cannula 2.0 08/12/18 20:00 71 08/12/18 20:00 97.0 75 19 114/57 (76) 96 Laboratory Tests Test 08/13/18 06:58 White Blood Count 6.4 K/UL (4.8-10.8) Red Blood Count 4.77 M/UL (4.70-6.10) Hemoglobin 14.1 G/DL (14.2-18.0) L Hematocrit 43.2 % (42.0-52.0) Mean Corpuscular Volume 91 FL (80-99) Mean Corpuscular Hemoglobin 29.5 PG (27.0-31.0) Mean Corpuscular Hemoglobin Concent 32.6 G/DL (32.0-36.0) Red Cell Distribution Width 13.5 % (11.6-14.8) Platelet Count 203 K/UL (150-450) Mean Platelet Volume 7.5 FL (6.5-10.1) Neutrophils (%) (Auto) 55.7 % (45.0-75.0) Lymphocytes (%) (Auto) 29.4 % (20.0-45.0) Monocytes (%) (Auto) 9.9 % (1.0-10.0) Eosinophils (%) (Auto) 3.9 % (0.0-3.0) H Basophils (%) (Auto) 1.2 % (0.0-2.0) Prothrombin Time 10.4 SEC (9.30-11.50) Prothromb Time International Ratio 1.0 (0.9-1.1) Activated Partial Thromboplast Time 27 SEC (23-33) Sodium Level 142 MMOL/L (136-145) Potassium Level 4.1 MMOL/L (3.5-5.1) Chloride Level 106 MMOL/L (98-107) Carbon Dioxide Level 32 MMOL/L (21-32) Anion Gap 5 mmol/L (5-15) Blood Urea Nitrogen 18 mg/dL (7-18) Creatinine 1.4 MG/DL (0.55-1.30) H Estimat Glomerular Filtration Rate mL/min (>60) Glucose Level 118 MG/DL (74-106) H Calcium Level 8.5 MG/DL (8.5-10.1) Total Bilirubin 0.6 MG/DL (0.2-1.0) Aspartate Amino Transf (AST/SGOT) 14 U/L (15-37) L Alanine Aminotransferase (ALT/SGPT) 19 U/L (12-78) Alkaline Phosphatase 51 U/L (46-116) Total Protein 6.4 G/DL (6.4-8.2) Albumin 3.0 G/DL (3.4-5.0) L Globulin 3.4 g/dL Albumin/Globulin Ratio 0.9 (1.0-2.7) L Triglycerides Level 189 MG/DL (30-150) H Cholesterol Level 175 MG/DL (< 200) LDL Cholesterol 117 mg/dL (<100) H HDL Cholesterol 25 MG/DL (40-60) L Cholesterol/HDL Ratio 7.0 (3.3-4.4) H Thyroid Stimulating Hormone (TSH) 1.831 uiU/mL (0.358-3.740) Gilberto Huang MD Aug 13, 2018 19:05
--- NOTE | 2018-08-13 19:58 | NUR ---
HAND-OFF: Report given to EVERARDO Santiago.
--- NOTE | 2018-08-13 19:59 | NUR ---
NURSE NOTES: Received pt from EVERARDO Connolly. Patient awake and resting. IV intact and patent. Bed in lowest position and call light within reach. Will continue with plan of care.
[2018-08-13 20:00] VITALS: BP 111/66
--- NOTE | 2018-08-13 23:16 | History and Physical Report ---
DATE OF ADMISSION: 08/12/2018 TIME SEEN: On 08/13/2018 at 4 p.m. CONSULTANTS: 1. Sander Kingsley M.D. 2. Zaheer Hidalgo M.D. 3. Gilberto Huang M.D. CHIEF COMPLAINT: Vertigo. BRIEF HISTORY: This is a 73-year-old male, who lives at home and presents yesterday with sudden onset of vertigo. He had vertigo previously, last time about a month ago. He was slightly nauseous. No vomiting. The patient came to [facility], diagnosed with the above, and admitted to telemetry for further care. Currently, vertigo has somewhat improved, no complaint. REVIEW OF SYSTEMS: No chest pain. No shortness of breath. Slight nausea. No vomiting or diarrhea. PAST MEDICAL HISTORY: Poor hearing, arthritis, COPD, hypertension, and diabetes. PAST SURGICAL HISTORY: Bypass and left hip. ALLERGIES: Denies. MEDICATIONS: Include prednisone, carvedilol, heparin, Plaquenil, Tylenol, morphine, Zofran, lorazepam, nitroglycerin. SOCIAL HISTORY: No smoking. No alcohol. No intravenous drug abuse. FAMILY HISTORY: Noncontributory. PHYSICAL EXAMINATION: GENERAL: Calm in bed, oriented x3, in no acute distress. VITAL SIGNS: Temperature 98 degrees, pulse 66, respirations 18, and blood pressure 105/56. CARDIOVASCULAR: No murmur. LUNGS: Distant and clear. ABDOMEN: Bowel sounds positive. Nontender, nondistended. EXTREMITIES: Showed no cyanosis, clubbing, or edema. NEUROLOGIC: The patient moves all extremities, slightly weak. LABORATORY DATA: Labs at this time show CBC is normal. Creatinine 1.4, glucose 118, AST 14, albumin 3.0. TSH 1.83. Urinalysis, 3+ glucose. ASSESSMENT: Vertigo, nausea, arthritis, diabetes, hypertension, COPD, malnutrition. PLAN: Blood pressure and blood sugar control. PT and dietary evaluation. Resume home medications. CBC and BMP in the morning. We will continue to follow this patient. Delano Walters D.O. DR: Mily JOB#: [id number] CC:
[2018-08-14] VITALS: BP 107/65
[2018-08-14 04:00] VITALS: BP 127/70
[2018-08-14] MEDS: NovoLOG Insulin Flexpen SUBQ SCH ×3 (06:30→17:00)
--- NOTE | 2018-08-14 07:32 | NUR ---
HAND-OFF: Report given to EVERARDO Brown.
--- NOTE | 2018-08-14 07:32 | NUR ---
NURSE NOTES: Received report from Jose De Jesus, Patient is awake, alert and oriented x4. no sign of distress/Sob noted. Bed in low position, call light in reach, will continue plan of care.
[2018-08-14 07:36] LABS: ANION GAP 6 mmol/L (5-15); BLOOD UREA NITROGEN 21 mg/dL (7-18); CALCIUM 8.8 MG/DL (8.5-10.1); CARBON DIOXIDE 29 MMOL/L (21-32); CHLORIDE 105 MMOL/L (98-107); CREATININE 1.2 MG/DL (0.55-1.30); POTASSIUM 4.1 MMOL/L (3.5-5.1); SODIUM 140 MMOL/L (136-145)
[2018-08-14 07:54] LABS: BASOPHILS % (AUTO) 1.1 % (0.0-2.0); HEMOGLOBIN 13.7 G/DL (14.2-18.0); LYMPHOCYTES % (AUTO) 29.6 % (20.0-45.0); MEAN CORPUSCULAR VOLUME 90 FL (80-99); MONOCYTES % (AUTO) 9.9 % (1.0-10.0); NEUTROPHILS % (AUTO) 55.4 % (45.0-75.0); PLATELET COUNT 170 K/UL (150-450); RED BLOOD COUNT 4.65 M/UL (4.70-6.10); RED CELL DISTRIBUTION WIDTH 13.1 % (11.6-14.8); WHITE BLOOD COUNT 7.1 K/UL (4.8-10.8)
[2018-08-14 08:00] VITALS: BP 113/61
[2018-08-14] MEDS: Carvedilol 25mg Tab ORAL SCH (09:23)
[2018-08-14] MEDS: Heparin 5000 units/ml inj SUBQ SCH (09:28)
[2018-08-14 12:00] VITALS: BP 126/71
--- NOTE | 2018-08-14 12:18 | Pulmonology Progress Note ---
Assessment/Plan Problems: (1) Acute encephalopathy (2) CAD (coronary artery disease) (3) History of coronary artery bypass graft (4) History of ETOH abuse (5) Diabetes Assessment/Plan telemetry monitoring reviewed, HR is seventies neuro evaluation pending sliding scale diabetic diet check electrolytes dvt prophylaxis. Subjective ROS Limited/Unobtainable: No Constitutional: Reports: no symptoms HEENT: Repors: no symptoms Respiratory: Reports: no symptoms Allergies: Coded Allergies: Dairy (Verified Allergy, Severe, Swollen lips, 09/29/15) GRAPEFRUIT (Verified Allergy, Intermediate, Rash, itching, 09/29/15) ORANGE JUICE (Verified Allergy, Intermediate, Itching, 09/29/15) POLLEN EXTRACTS (Verified Allergy, Intermediate, itching, sneezing, watery eyes, 09/29/15) Objective Last 24 Hour Vital Signs Date Time Temp Pulse Resp B/P (MAP) Pulse Ox O2 Delivery O2 Flow Rate FiO2 08/14/18 09:23 70 113/61 08/14/18 09:00 Nasal Cannula 2.0 08/14/18 08:00 98.2 70 21 113/61 (78) 96 08/14/18 07:05 Nasal Cannula 2.0 28 08/14/18 07:05 97 Nasal Cannula 2.0 28 08/14/18 07:05 68 16 Nasal Cannula 2.0 28 08/14/18 04:00 97.5 70 18 127/70 (89) 98 08/14/18 04:00 70 08/14/18 00:00 71 08/14/18 00:00 97.5 80 18 107/65 (79) 92 08/13/18 21:22 64 113/70 08/13/18 21:00 Nasal Cannula 2.0 08/13/18 20:15 Nasal Cannula 2.0 28 08/13/18 20:15 72 18 Nasal Cannula 2.0 28 08/13/18 20:15 96 Nasal Cannula 2.0 28 08/13/18 20:00 97.8 84 18 111/66 (81) 96 08/13/18 20:00 84 08/13/18 16:09 76 08/13/18 16:00 97.8 64 18 111/66 (81) 96 08/13/18 12:42 66 General Appearance: WD/WN HEENT: normocephalic, atraumatic Cardiovascular: normal peripheral pulses, normal rate, regular rhythm Abdomen: normal bowel sounds, soft, non tender Genitourinary: normal external genitalia Skin: no rash Laboratory Tests 08/14/18 05:55: White Blood Count 7.1, Red Blood Count 4.65L, Hemoglobin 13.7L, Hematocrit 42.0 , Mean Corpuscular Volume 90, Mean Corpuscular Hemoglobin 29.5, Mean Corpuscular Hemoglobin Concent 32.7, Red Cell Distribution Width 13.1, Platelet Count 170, Mean Platelet Volume 7.7, Neutrophils (%) (Auto) 55.4, Lymphocytes (% ) (Auto) 29.6, Monocytes (%) (Auto) 9.9, Eosinophils (%) (Auto) 4.0H, Basophils (%) (Auto) 1.1, Sodium Level 140, Potassium Level 4.1, Chloride Level 105, Carbon Dioxide Level 29, Anion Gap 6, Blood Urea Nitrogen 21H, Creatinine 1.2, Estimat Glomerular Filtration Rate , Glucose Level 112H, Calcium Level 8.8 Current Medications Medications (Trade) Dose Ordered Sig/Marty Route PRN Reason Start Time Stop Time Status Last Admin Dose Admin Acetaminophen (Tylenol) 650 mg Q4H PRN ORAL fever 08/12/18 14:30 09/11/18 14:29 Al Hydroxide/Mg Hydroxide (Mylanta II) 30 ml Q6H PRN ORAL dyspepsia 08/12/18 14:30 09/11/18 14:29 Albuterol/ Ipratropium (Albuterol/ Ipratropium) 3 ml Q4H PRN HHN Shortness of Breath 08/12/18 14:30 08/17/18 14:29 Carvedilol (Coreg) 25 mg Q12HR ORAL 08/12/18 21:00 09/11/18 20:59 08/14/18 09:23 Dextrose (Dextrose 50%) 25 ml Q30M PRN IV Hypoglycemia 08/12/18 14:30 09/11/18 14:29 Dextrose (Dextrose 50%) 50 ml Q30M PRN IV Hypoglycemia 08/12/18 14:30 09/11/18 14:29 Heparin Sodium (Porcine) (Heparin 5000 units/ml) 5,000 units EVERY 12 HOURS SUBQ 08/12/18 21:00 09/11/18 20:59 08/14/18 09:28 Hydroxychloroquine Sulfate (Plaquenil) 200 mg BID ORAL 08/12/18 18:00 09/11/18 17:59 08/14/18 09:23 Insulin Aspart (NovoLOG) BEFORE MEALS AND HS SUBQ 08/12/18 16:30 09/11/18 16:29 08/14/18 12:07 Lorazepam (Ativan 2mg/ml 1ml) 0.5 mg Q4H PRN IV For Anxiety 08/12/18 14:30 08/19/18 14:29 Morphine Sulfate (Morphine Sulfate) 1 mg Q4H PRN IVP For Pain 12-1108/12/18 14:30 08/19/18 14:29 Nitroglycerin (Ntg) 0.4 mg Q5M X 3 DOSES PRN SL Prn Chest Pain 08/12/18 14:30 09/11/18 14:29 Ondansetron HCl (Zofran) 4 mg Q6H PRN IVP Nausea & Vomiting 08/12/18 14:30 09/11/18 14:29 Polyethylene Glycol (Miralax) 17 gm HSPRN PRN ORAL Constipation 08/12/18 14:30 09/11/18 14:29 Prednisone (predniSONE) 2 mg DAILY ORAL 08/13/18 09:00 09/12/18 08:59 08/14/18 09:22 Sitagliptin Phosphate (Januvia) 100 mg DAILY ORAL 08/13/18 09:00 09/12/18 08:59 08/14/18 09:22 Temazepam (Restoril) 15 mg HSPRN PRN ORAL Insomnia 08/12/18 14:30 08/19/18 14:29 Zaheer Hidalgo MD Aug 14, 2018 12:18
--- NOTE | 2018-08-14 14:44 | General Progress Note ---
Assessment/Plan Problem List: (1) Vertigo ICD Codes: R42 - Dizziness and giddiness SNOMED: 317215843 (2) COPD (chronic obstructive pulmonary disease) ICD Codes: J44.9 - COPD (chronic obstructive pulmonary disease) SNOMED: 03734024 Qualifiers: Qualified Codes: J44.1 - Chronic obstructive pulmonary disease with (acute) exacerbation (3) HTN (hypertension) ICD Codes: I10 - HTN (hypertension) SNOMED: 63864380 Status: stable, progressing Assessment/Plan dc if clear by neuro and cardio Subjective Allergies: Coded Allergies: Dairy (Verified Allergy, Severe, Swollen lips, 09/29/15) GRAPEFRUIT (Verified Allergy, Intermediate, Rash, itching, 09/29/15) ORANGE JUICE (Verified Allergy, Intermediate, Itching, 09/29/15) POLLEN EXTRACTS (Verified Allergy, Intermediate, itching, sneezing, watery eyes, 09/29/15) All Systems: reviewed and negative except above Subjective feeling better wants to go home Objective Last 24 Hour Vital Signs Date Time Temp Pulse Resp B/P (MAP) Pulse Ox O2 Delivery O2 Flow Rate FiO2 08/14/18 13:37 79 08/14/18 12:00 98.0 70 22 126/71 (89) 94 08/14/18 09:23 70 113/61 08/14/18 09:00 Nasal Cannula 2.0 08/14/18 08:00 98.2 70 21 113/61 (78) 96 08/14/18 08:00 71 08/14/18 07:05 Nasal Cannula 2.0 28 08/14/18 07:05 97 Nasal Cannula 2.0 28 08/14/18 07:05 68 16 Nasal Cannula 2.0 28 08/14/18 04:00 97.5 70 18 127/70 (89) 98 08/14/18 04:00 70 08/14/18 00:00 71 08/14/18 00:00 97.5 80 18 107/65 (79) 92 08/13/18 21:22 64 113/70 08/13/18 21:00 Nasal Cannula 2.0 08/13/18 20:15 Nasal Cannula 2.0 28 08/13/18 20:15 72 18 Nasal Cannula 2.0 28 08/13/18 20:15 96 Nasal Cannula 2.0 28 08/13/18 20:00 97.8 84 18 111/66 (81) 96 08/13/18 20:00 84 08/13/18 16:09 76 08/13/18 16:00 97.8 64 18 111/66 (81) 96 Laboratory Tests 08/14/18 05:55: White Blood Count 7.1, Red Blood Count 4.65L, Hemoglobin 13.7L, Hematocrit 42.0 , Mean Corpuscular Volume 90, Mean Corpuscular Hemoglobin 29.5, Mean Corpuscular Hemoglobin Concent 32.7, Red Cell Distribution Width 13.1, Platelet Count 170, Mean Platelet Volume 7.7, Neutrophils (%) (Auto) 55.4, Lymphocytes (% ) (Auto) 29.6, Monocytes (%) (Auto) 9.9, Eosinophils (%) (Auto) 4.0H, Basophils (%) (Auto) 1.1, Sodium Level 140, Potassium Level 4.1, Chloride Level 105, Carbon Dioxide Level 29, Anion Gap 6, Blood Urea Nitrogen 21H, Creatinine 1.2, Estimat Glomerular Filtration Rate , Glucose Level 112H, Calcium Level 8.8 Height (Feet): 5 Height (Inches): 8.00 Weight (Pounds): 109 General Appearance: alert EENT: normal ENT inspection Neck: normal alignment Cardiovascular: normal peripheral pulses, normal rate, regular rhythm Respiratory/Chest: chest wall non-tender, lungs clear, normal breath sounds Abdomen: normal bowel sounds, non tender, soft Extremities: normal inspection Edema: no edema noted Arm (L), no edema noted Arm (R), no edema noted Leg (L), no edema noted Leg (R), no edema noted Pedal (L), no edema noted Pedal (R), no edema noted Generalized Neurologic: responsive, motor weakness Skin: normal pigmentation, warm/dry Delano Walters DO Aug 14, 2018 14:44
[2018-08-14 16:00] VITALS: BP 149/81
--- NOTE | 2018-08-14 17:18 | NUR ---
P.T NOTE: PATIENT IS CURRENTLY AT BASELINE INDEPENDENT WITH ADL/FUNCTIONAL MOBILITIES AND GAIT /LOCOMOTION. SKILLED P.T SERVICE NOT NEEDED AT THIS TIME. DC P.T SERVICES. THANK YOU FOR THIS REFERRAL. Addendum: 08/14/18 at 1718 by LAKISHA VANEGAS PT Amended: Links added.
--- NOTE | 2018-08-14 17:45 | NUR ---
NURSE NOTES: Patient was told, He will be discharged when cleared by Neuro and Cardio. Patient agreed to stay until 18:00, but Patient left with IV on at 17:40. Reported to police and notified to charge nurse. Filled out Incident report.
--- NOTE | 2018-08-14 18:40 | NUR ---
NURSE NOTES: Received call from the Officer and They said they can't take incident report because the patient was admitted voluntarily.
--- NOTE | 2018-08-15 09:34 | Diagnostic Imaging Report ---
APPROVED REPORT CPT Code: 33057 Vascular Symptoms CVA/TIA: Doppler Spectral Velocity Analysis RightLeft BILATERAL: CCA/BULB - Imaging reveals irregular, minimal plaque in both carotid bulbs. arteries. The Doppler spectral flow analysis is within normal limits throughout the internal and external carotid arteries. VERTEBRALS - Imaging reveals both vertebral arteries to be patent, without evidence of stenosis or steal. Limited exam due to patient body habitus.
--- NOTE | 2018-08-15 12:35 | Discharge Summary ---
Discharge Summary Discharge Summary _ DATE OF ADMISSION: 08/12/2018 DATE OF DISCHARGE: 08/14/2018 CONSULTANTS: Dr. Zaheer Huang BRIEF HOSPITAL COURSE: Patient is a 73-year-old male, who lives at home, presented to ED for evaluation of dizziness. Patient had an episode of dizziness while sitting in a recliner at home. He felt a world spinning and body was out of control. It lasted for about 15 minutes. It eventually resolved. He denied chest pain or palpitations during that time. He denied nausea, or vomiting. Patient was admitted to [facility] in June for a lung infection. He was evaluated at that time for vertigo. He has history of severe COPD and had been wheezing. He had been on prednisone for the past 2 years. He denied any fever or productive cough. He had rashes on the back of the scalp and legs had eczema. There was no edema or calf pain. He denied headache. He had history of squamous cell carcinoma of the left, status post radiation therapy. He has osteoarthritis and ambulates with a cane. On evaluation at the ED, vital signs were stable. Labs were unremarkable. Patient was noted to be wheezing, he was given albuterol and Atrovent treatment. EKG was in normal sinus rhythm with no acute changes. Chest x-ray showed cardiomegaly with no acute process. Head CT showed periventricular deep white matter low-attenuation, consistent with chronic microvascular ischemic changes. He was given Antivert and Zofran. He was given aspirin. 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 Heart rate on telemetry remained in the 70s. Blood glucose was monitored. He was given insulin sliding scale and was continued on Januvia 100 mg daily. He was given nebulizer treatment and was continued on 2 mg of prednisone daily. Carotid duplex scan revealed irregular, minimal plaque in both carotid bulb. Spectral flow analysis were within normal limits throughout the internal and external carotid arteries bilaterally. Vertebral arteries were patent without evidence of stenosis or steal. He was seen by wedding photographer. Cardiovascular status was stable. Main symptoms of vertigo were probably either of neurologic or otologic source. Blood pressures were not elevated. He was continued on carvedilol as well as Lasix and lisinopril per wedding photographer no need to repeat echocardiogram. He was advised to continue Crestor at maximum dose. Full treatment was not carried out as patient left against medical advise. FINAL DIAGNOSES: Acute encephalopathy Vertigo Coronary artery disease with coronary artery bypass graft Diabetes mellitus History of EtOH abuse COPD Hypertension Possible ischemic cardiomyopathy and coronary disease, status post coronary artery bypass graft Decreased acuity History of head trauma History of cocaine abuse DISPOSITION: Patient left against medical advise. I have been assigned to complete a discharge summary on this account, I was not involved with the patient's management. Bianka Valverde NP Aug 15, 2018 12:35
--- NOTE | 2018-08-15 13:13 | Consultation ---
DATE OF CONSULTATION: 08/13/2018 CARDIOLOGY CONSULTATION CONSULTING PHYSICIAN: Gilberto Huang M.D. REFERRING PHYSICIAN: Delano Walters D.O. REASON FOR REFERRAL: Dizziness. HISTORY OF PRESENT ILLNESS: This is a 73-year-old gentleman who has a history of coronary artery disease, status post coronary artery bypass grafting x4 who presented to the hospital because of several episodes of spinning sensation. No associated problems such as nausea, no double vision. Just these episodes, he gets dizzy and spinning sensation that he and the room spins and he develops significant sweating. He absolutely denies any chest pain or pressure. No PND. No orthopnea. No palpitations. He uses one pillow. No dizziness on standing. He does have a history of a soft injury to his head a number of years ago and he otherwise has no other symptoms. PAST MEDICAL HISTORY: Positive for coronary artery bypass grafting, asthma, hay fever, stroke, diabetes mellitus, history of soft injury to his head and his ear, decreased hearing acuity, and vertigo on prior occasions, for which he was hospitalized here, Villalobos's esophagus, carcinoma of the lip and lumbar degenerative disk disease and lumbar spondylosis. ALLERGIES: He is not allergic to any medication. SOCIAL HISTORY: He does not smoke at this time, he quit that in 1979. He does not drink alcoholic beverages except for rare occasions. He uses cocaine, last was one month ago. REVIEW OF SYSTEMS: GASTROINTESTINAL: Denies any nausea, vomiting, diarrhea, or constipation. GENITOURINARY: Negative. PULMONARY: Negative. CONSTITUTIONAL: Negative except for the above episodes, but episodes that he recalls. NEUROLOGIC: Negative. PHYSICAL EXAMINATION: GENERAL: Shows to be an overweight elderly male, in no respiratory distress. LUNGS: Decreased breath sounds noted. No crackles are noted. CARDIAC: Showed regular rate and rhythm. No heaves or thrills noted. ABDOMEN: Soft and nontender. Positive bowel sounds. Obese. EXTREMITIES: There is no edema. NEUROLOGIC: He is awake, alert, and responsive, in no apparent distress. LABORATORY AND DIAGNOSTIC DATA: His laboratory values, EKG shows sinus rhythm. His white count is 6.2, hemoglobin 14.1, and platelet count 203,000. Sodium is 140, potassium 4.1, chloride 106, bicarb 32, BUN of 18, creatinine 1.4, and glucose of 118. Liver function tests are normal. Troponin 0.01. His proBNP is only 558. His albumin of 3.0 and globulin of 3.4. TSH of 1.39. Total cholesterol of 175 with LDL of 170 and HDL of 25. Coags, INR of 1.0 and PTT of 27. Urinalysis is fairly unremarkable. His imaging includes chest x-ray that was performed yesterday that showed cardiomegaly, no acute processes. He did have a CT scan of his head that was performed yesterday and negative for acute intracranial bleed or mass effect, mild periventricular deep white matter, low attenuation chronic microvascular ischemic change, and possible soft tissue contusion on the vertex. He had an echocardiogram last time, that was in June of 2018, ejection fraction at that time was 35 to 40% with mid to distal septal and apical akinesis, ischemic cardiomyopathy cannot be excluded. No significant valvular regurgitation was noted at that time. ASSESSMENT AND PLAN: 1. Possible ischemic cardiomyopathy and coronary disease, status post coronary artery bypass grafting. 2. Diabetes. 3. Hypertension. 4. History of head trauma. 5. Decreased acuity. 6. Vertigo. 7. Obesity. 8. History of cocaine abuse. This patient was seen in cardiac consultation. Cardiovascularly, he appears fine. His main symptoms of vertigo are probably either neurologic or otologic, may be the likely culprits. His blood pressures are not significantly elevated. He is on medications at home and that should be continued including carvedilol as well as Lasix as well as low-dose lisinopril. I do not think he needs the echocardiogram repeated. He is on Crestor maximum doses already. Dr. Walters, thank you for allowing me to participate in the care of this patient. Gilberto Huang M.D. DR: ALEKSEY JOB#: [id number] CC:
--- NOTE | 2018-08-15 20:41 | Cardiology Report ---
APPROVED REPORT EXAM: Two-dimensional and M-mode echocardiogram with Doppler and color Doppler. INDICATION Left ventricular function M-Mode DIMENSIONS IVSd1.5 (0.7-1.1cm)Left Atrium (MM)5.9 (1.6-4.0cm) LVDd5.3 (3.5-5.6cm)Aortic Root2.2 (2.0-3.7cm) PWd1.8 (0.7-1.1cm)Aortic Cusp Exc.1.7 (1.5-2.0cm) LVDs3.3 (2.5-4.0cm) PWs1.6 cm Technically difficult study due to poor acoustic windows. Study quality precludes accurate assessment of regional wall motion. Normal left ventricular chamber size. Anteroseptal wall hypokinesia. Ischemic cardiomyopathy cannot be excluded. Left ventricular ejection fraction estimated to be 50%. Mild left ventricular hypertrophy. Anterior Echo-free space, may be due to pericardial fat or effusion. Mild left atrial enlargement. Right cardiac chamber sizes are within normal limits. Aortic valve calcification with decreased cusp excursion c/w aortic stenosis. Thickened mitral valve leaflets with normal excursion. Mild mitral annulus and aortic root calcification. Pulmonic valve not visualized. Normal tricuspid valve structure. IVC dilated at 2.3 cm with physiological collapse. A color flow and spectral Doppler study was performed and revealed: No aortic insufficiency. Peak aortic valve gradient of 30 mmHg and a mean of 18 mmHg. Aortic valve area 1.0 cm2 calculated by continuity equation. Trace mitral regurgitation. Mitral diastolic velocities suggest mild left ventricular diastolic dysfunction (Grade I). Trace tricuspid regurgitation. Tricuspid systolic velocities suggests peak right ventricular systolic pressure of 20 mmHg. No pulmonic regurgitation present.
== END 2018-08-14 17:45 | disposition left against medical advice (07) | DRG 149 ==
LOC: EMR 12:45 → 2E 12:46 → EDBEDREQ 13:05
DX: R42 Dizziness and giddiness (principal); G93.40 Encephalopathy, unspecified; E46 Unspecified protein-calorie malnutrition; Z68.1 Body mass index [BMI] 19.9 or less, adult; J44.9 Chronic obstructive pulmonary disease, unspecified; I25.10 Atherosclerotic heart disease of native coronary artery without angina pectoris; I10 Essential (primary) hypertension; E11.9 Type 2 diabetes mellitus without complications; M19.90 Unspecified osteoarthritis, unspecified site; E66.9 Obesity, unspecified; I25.5 Ischemic cardiomyopathy; Z95.1 Presence of aortocoronary bypass graft; Z53.21 Procedure and treatment not carried out due to patient leaving prior to being seen by health care provider; Z79.52 Long term (current) use of systemic steroids
CPT/HCPCS: 36415; 70450; 71045; 80048; 80053; 80061; 81003; 82550; 82962; 83880; 84443; 84484; 85025; 85610; 85730; 93005; 93306; 93880; 94640; 94664; 94760; 96374; 99285; J1815; J2405

== ENCOUNTER 2018-10-10 13:46 | Outpatient (CLI) | payer MEDICARE ==
--- NOTE | 2018-10-10 14:30 | General Progress Note ---
Assessment/Plan Problem List: (1) History of coronary artery bypass graft ICD Codes: Z95.1 - Presence of aortocoronary bypass graft SNOMED: 057045993, 274413629 (2) COPD (chronic obstructive pulmonary disease) ICD Codes: J44.9 - COPD (chronic obstructive pulmonary disease) SNOMED: 52655877 (3) Barretts esophagus ICD Codes: K22.70 - Barretts esophagus SNOMED: 962971602 (4) Tubular adenoma ICD Codes: D36.9 - Tubular adenoma SNOMED: 737103982 (5) Diabetes ICD Codes: E11.9 - Type 2 diabetes mellitus without complications SNOMED: 77221856 (6) Vertigo ICD Codes: R42 - Dizziness and giddiness SNOMED: 949017421 (7) History of ETOH abuse ICD Codes: F10.10 - History of ETOH abuse SNOMED: 817066250 (8) HTN (hypertension) ICD Codes: I10 - HTN (hypertension) SNOMED: 39070773 (9) Large hiatal hernia ICD Codes: K44.9 - Diaphragmatic hernia without obstruction or gangrene SNOMED: 06232514 (10) Barretts esophagus ICD Codes: K22.70 - Villalobos's esophagus without dysplasia SNOMED: 848294644 Assessment/Plan: ppi plan EGD next week colonoscopy next year relistor align Subjective ROS Limited/Unobtainable: Yes Allergies: Coded Allergies: Dairy (Verified Allergy, Severe, Swollen lips, 09/29/15) GRAPEFRUIT (Verified Allergy, Intermediate, Rash, itching, 09/29/15) ORANGE JUICE (Verified Allergy, Intermediate, Itching, 09/29/15) POLLEN EXTRACTS (Verified Allergy, Intermediate, itching, sneezing, watery eyes, 09/29/15) Objective General Appearance: alert EENT: normal ENT inspection Neck: supple Cardiovascular: normal rate Respiratory/Chest: lungs clear Abdomen: normal bowel sounds, non tender, soft Extremities: non-tender Charles Hinds MD October 10, 2018 14:30
[2018-10-10 15:13] VITALS: BP 104/63
[2018-10-10] MEDS ORDERED: OXYCODONE HCL10 MG ORAL (15:16)
[2018-10-10] MEDS ORDERED: NORCO 10-325 T1 EACH ORAL (15:16)
== END 2018-10-10 15:51 | disposition home or self-care (01) ==
LOC: PAN 13:46
DX: K22.70 Barrett's esophagus without dysplasia (principal); J44.9 Chronic obstructive pulmonary disease, unspecified; Z95.1 Presence of aortocoronary bypass graft; D36.9 Benign neoplasm, unspecified site; E11.9 Type 2 diabetes mellitus without complications; R42 Dizziness and giddiness; F10.10 Alcohol abuse, uncomplicated; I10 Essential (primary) hypertension; K44.9 Diaphragmatic hernia without obstruction or gangrene; Z91.011 Allergy to milk products; Z91.018 Allergy to other foods

== ENCOUNTER 2018-11-01 10:54 | Day surgery (SDC) | payer MEDICARE ==
[~2018-11-01] VITALS: Ht 182.9 cm; Wt 102.1 kg
[2018-11-01] VITALS (10 sets, daily range): BP systolic 99–132; BP diastolic 55–90
[~2018-11-01 10:54] MED LIST changes: +NORCO 10-325 T1 EACH ORAL; +OXYCODONE HCL10 MG ORAL
--- NOTE | 2018-11-01 12:32 | Pre-Procedure Note/Attestation ---
Pre-Procedure Note/Attestation Complete Prior to Procedure Planned Procedure: not applicable Procedure Narrative: egd Indications for Procedure Pre-Operative Diagnosis: barretts esophagus Attestation I attest that I discussed the nature of the procedure; its benefits; risks and complications; and alternatives (and the risks and benefits of such alternatives ), prior to the procedure, with the patient (or the patient's legal medical office representative). I attest that, if there was a reasonable possibility of needing a blood transfusion, the patient (or the patient's legal medical office representative) was given the [facility] standardized written summary, pursuant to the Adán Angely Blood Safety Act ([place] Health and Safety Code # 1645, as amended). I attest that I re-evaluated the patient just prior to the surgery and that there has been no change in the patient's H&P, except as documented below: Charles Hinds MD November 01, 2018 12:32
--- NOTE | 2018-11-01 12:33 | Short Stay Surgery H&P ---
History of Present Illness History of Present Illness Chief Complaint see recent office note HPI Gerald Monroe is a 73 year old male who was admitted on for Diverticulitis , Abdominal Bloating Patient History Allergies: Coded Allergies: Dairy (Verified Allergy, Severe, Swollen lips, 09/29/15) GRAPEFRUIT (Verified Allergy, Intermediate, Rash, itching, 09/29/15) ORANGE JUICE (Verified Allergy, Intermediate, Itching, 09/29/15) POLLEN EXTRACTS (Verified Allergy, Intermediate, itching, sneezing, watery eyes, 09/29/15) Medication History Scheduled Albuterol Sulfate* (Proair Hfa*), 1 PUFF INH Q6H, (Reported) Carvedilol* (Carvedilol*), 25 MG ORAL BID, (Reported) Dexlansoprazole (Dexilant), 60 MG ORAL DAILY, (Reported) Folic Acid* (Folic Acid*), 1 MG ORAL DAILY, (Reported) Furosemide* (Lasix*), 40 MG ORAL DAILY, (Reported) Hydroxychloroquine Sulfate (Hydroxychloroquine Sulfate), 200 MG PO BID, ( Reported) Lisinopril* (Prinivil*), 10 MG ORAL BID, (Reported) Metformin Hcl* (Metformin Hcl*), 500 MG ORAL TWICE A DAY, (Reported) Potassium Chloride (Klor-Con 8), 8 MEQ ORAL DAILY, (Reported) Prednisone (Prednisone), 2 MG PO DAILY, (Reported) Rosuvastatin Calcium* (Crestor*), 40 MG ORAL DAILY, (Reported) Sitagliptin* (Januvia*), 100 MG ORAL DAILY, (Reported) Scheduled PRN Hydrocodone Bit/Acetaminophen 10-325* (Henry 10-325*), 1 TAB ORAL Q4H PRN for For Pain, (Reported) Oxycodone Hcl* (Oxycodone Hcl*), Unknown Dose ORAL Q4H PRN for For Pain, ( Reported) Miscellaneous Medications Phenylephrine/Dm/Acetaminop/Gg (Tylenol Cold & Flu Severe Cplt), 1 EACH PO, ( Reported) Physical Exam Vital Signs Last Vital Signs Date Time Temp Pulse Resp B/P (MAP) Pulse Ox O2 Delivery O2 Flow Rate FiO2 11/01/18 12:17 Room Air 11/01/18 12:00 97.0 85 18 123/78 99 Plan Attestation Are the patient's medical conditions optimized for surgery? Charles Hinds MD November 01, 2018 12:33
[2018-11-01] MEDS ORDERED: Propofol 200mg/20ml IV ONE (12:45)
[2018-11-01] MEDS ORDERED: LR 1000ml ONE (12:45)
[2018-11-01] MEDS ORDERED: Lidocaine 1% MPF 10mg/ml 5ml ONE (12:45)
--- NOTE | 2018-11-01 13:17 | Endoscopy Procedure Note ---
Endoscopy Procedure Note General Indication for Procedure: barretts Procedures Performed: EGD Operative Findings/Diagnosis: same Specimen: yes Pt Tolerated Procedure Well: Yes Estimated Blood Loss: none Anesthesia Anesthesiologist: ivonne Anesthesia: MAC Inserted Devices Implant(s) used?: No GI Core Measures 50 yrs or older w/o bx or poly: Not Applicable 10yrs. F/U recommended: Not Applicable Charles Hinds MD November 01, 2018 13:17
--- NOTE | 2018-11-01 15:44 | Immediate Post-Op Evaluation ---
Immediate Post-Op Evalulation Immediate Post-Op Evalulation Procedure: EGD Date of Evaluation: November 01, 2018 Time of Evaluation: 13:25 IV Fluids: 300 Blood Pressure Systolic: 124 Blood Pressure Diastolic: 60 Pulse Rate: 84 Respiratory Rate: 14 O2 Sat by Pulse Oximetry: 98 Nausea: No Vomiting: No Complications none Patient Status: awake, reacts, patent Hydration Status: adequate Drug: none Karolina Landis CRNA November 01, 2018 15:44
--- NOTE | 2018-11-01 15:47 | Anethesia Preoperative Eval ---
Anesthesia Pre-op PMH/ROS General Date of Evaluation: November 01, 2018 Time of Evaluation: 12:45 Anesthesiologist: Boby ASA Score: ASA 3 Mallampati Score Class I : Soft palate, uvula, fauces, pillars visible Class II: Soft palate, uvula, fauces visible Class III: Soft palate, base of uvula visible Class IV: Only hard plate visible Mallampati Classification: Class III Surgeon: abby Diagnosis: anemia Surgical Procedure: EGD Anesthesia History: none Social History: smoking Family History: no anesthesia problems Allergies: Coded Allergies: Dairy (Verified Allergy, Severe, Swollen lips, 09/29/15) GRAPEFRUIT (Verified Allergy, Intermediate, Rash, itching, 09/29/15) ORANGE JUICE (Verified Allergy, Intermediate, Itching, 09/29/15) POLLEN EXTRACTS (Verified Allergy, Intermediate, itching, sneezing, watery eyes, 09/29/15) Medications: see eMAR Patient NPO?: Yes NPO Date: November 01, 2018 NPO Time: 00:01 Past Medical History Cardiovascular: Reports: HTN, CAD, [place] Pulmonary: Reports: asthma Gastrointestinal/Genitourinary: Reports: GERD; Denies: CRI, ESRD, other Endocrine: Denies: DM, hypothyroidism, steroids, other HEENT: Denies: cataract (L), cataract (R), glaucoma, CANTWELL (L), CANTWELL (R), other Hematology/Immune: Reports: anemia Musculoskeletal/Integumentary: Denies: OA, RA, DJD, DDD, edema, other Other: obesity PSxH Narrative: CABG Anesthesia Pre-op Phys. Exam Physician Exam Last Vital Signs Date Time Temp Pulse Resp B/P (MAP) Pulse Ox O2 Delivery O2 Flow Rate FiO2 11/01/18 14:25 76 19 132/90 96 Room Air 11/01/18 14:10 97.3 11/01/18 13:30 2.0 Constitutional: NAD Neurologic: CN 2-12 intact Cardiovascular: RRR Respiratory: CTA Gastrointestinal: S/NT/ND Airway Exam Mallampati Classification 3 Mallampati Score: Class III MO: limited Neck: thick TMD: 2fb ROM: limited Teeth: missing, broken, loose Dentures: no upper, no lower Anesthesia Pre-op A/P Studies Pre-op Studies: EKG - sr Risk Assessment & Plan Plan: mac Pre-Antibiotics Drug: none Karolina Landis CRNA November 01, 2018 15:47
--- NOTE | 2018-11-01 15:48 | 48 Hour Post Anesthesia Eval ---
Post Anesthesia Evaluation Procedure: EGD Date of Evaluation: November 01, 2018 Time of Evaluation: 15:48 Blood Pressure Systolic: 132 0: 90 Pulse Rate: 76 Respiratory Rate: 14 O2 Sat by Pulse Oximetry: 98 Airway: patent Nausea: No Vomiting: No Hydration Status: adequate Cardiopulmonary Status: stable Mental Status/LOC: patient returned to baseline Follow-up Care/Observations: na Post-Anesthesia Complications: none Follow-up care needed: N/A Karolina Landis CRNA November 01, 2018 15:48
--- NOTE | 2018-11-01 18:15 | Procedure Note ---
DATE OF PROCEDURE: 11/01/2018 SURGEON: Charles Hinds M.D. PROCEDURE: Upper endoscopy with biopsy. ANESTHESIA: Per Karolina MEDINA INSTRUMENT: Olympus adult flexible upper endoscope. INDICATIONS: Villalobos esophagus. REASON FOR PROCEDURE: The procedure, risks, benefits, and possible consequences, including hemorrhage, aspiration, perforation and infection, and alternative treatments, were explained to the patient/legal guardian by Dr. Charles Hinds and the patient/legal guardian understood and accepted these risks. PROCEDURE IN DETAIL: After informed consent was obtained and the patient was adequately sedated, Olympus upper endoscope was advanced from mouth into the second portion of the duodenum and retroflexion was performed in the stomach. On the top of the gastric fold at about 40 centimeters from the incisors, GE junction at about 38, the patient had evidence of 8 cm Villalobos esophagus. No obvious mass, lump, or raised area in that 8 centimeter Villalobos was seen. Multiple biopsy from this 8 cm Villalobos esophagus was obtained. The patient had little bit of moderate respiratory distress so we decided to pull out the scope and the procedure was terminated. SUMMARY OF FINDINGS: 1. A 2 cm hiatal hernia. 2. An 8 centimeter Villalobos esophagus status post biopsy. RECOMMENDATIONS: 1. Followup pathology. 2. We will recommend the patient to be evaluated for possibility of ablation. We will discuss with the patient when he follows in the office. Charles Hinds M.D. DR: Kam JOB#: [id number] CC:
== END 2018-11-01 14:35 | disposition home or self-care (01) ==
LOC: GAS 10:54
DX: K22.70 Barrett's esophagus without dysplasia (principal); K44.9 Diaphragmatic hernia without obstruction or gangrene; Z91.011 Allergy to milk products; Z91.018 Allergy to other foods; Z79.82 Long term (current) use of aspirin; I25.2 Old myocardial infarction; I11.9 Hypertensive heart disease without heart failure; I25.10 Atherosclerotic heart disease of native coronary artery without angina pectoris; K21.9 Gastro-esophageal reflux disease without esophagitis; E66.9 Obesity, unspecified; Z68.30 Body mass index [BMI] 30.0-30.9, adult; I51.89 Other ill-defined heart diseases
CPT/HCPCS: 43239; 82962; J2704; 94003; 94150

== ENCOUNTER 2018-11-18 05:29 | Inpatient (IN) | payer MEDICARE ==
[2018-11-18] VITALS (8 sets, daily range): BP systolic 99–153; BP diastolic 53–100
[~2018-11-18] VITALS: Ht 182.9 cm; Wt 112.5 kg
--- NOTE | 2018-11-18 05:50 | NUR ---
ED Nurse Note: pt walked in c/o sob and abd bloating, pt reports he has been having increased abd with difficulty breathing for one year gradually getting worse but reports worsen today and came to hosp. noted pt abd distended and firm. -n/v/d at this time. LS=clear and no sx resp distress but noted tachypnea. will cont monitor. vss.
--- NOTE | 2018-11-18 05:53 | Emergency Room Report ---
History of Present Illness General Chief Complaint: General Complaint Source: Patient, Medical Record (Donald Couch MD) Present Illness HPI This is a 73-year-old male with multiple medical problems. He had a history of alcohol abuse in the past. He also has a history of Diaz's esophagus. Presents with chief complaint of abdominal distention and shortness of breath. Is been an ongoing problem for over a year but is gotten worse progressively. He came in because distention is so bad that is affected his walking and breathing. Worse when he lay flat. No trauma. No chest pain. Denies any complaint. Said he is no longer drinking. (Donald Couch MD) Allergies: Coded Allergies: Dairy (Verified Allergy, Severe, Swollen lips, 09/29/15) GRAPEFRUIT (Verified Allergy, Intermediate, Rash, itching, 09/29/15) ORANGE JUICE (Verified Allergy, Intermediate, Itching, 09/29/15) POLLEN EXTRACTS (Verified Allergy, Intermediate, itching, sneezing, watery eyes, 09/29/15) Patient History Past Medical History: see triage record, old chart reviewed, HTN, asthma Past Surgical History: other Pertinent Family History: none Social History: Denies: smoking Immunizations: other Reviewed Nursing Documentation: PMH: Agreed; PSxH: Agreed (Donald Couhc MD) Nursing Documentation-PMH Hx Cardiac Problems: Yes Hx Hypertension: Yes Hx Asthma: Yes Hx COPD: Yes Hx Diabetes: Yes 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 Hx Gastrointestinal Problems: Yes - DIAZ'S ESOPHAGUS Hx Neurological Problems: No Hx Cerebrovascular Accident: Yes (Donald Couch MD) Review of Systems Eye: Denies: eye pain, blurred vision ENT: Denies: ear pain, nose congestion, throat swelling Respiratory: Denies: cough, shortness of breath Cardiovascular: Denies: chest pain, palpitations Gastrointestinal: Denies: abdominal pain, diarrhea, nausea, vomiting Musculoskeletal: Denies: back pain, joint pain Skin: Denies: rash Neurological: Denies: headache, numbness Endocrine: Denies: increased thirst, increased urine Hematologic/Lymphatic: Denies: easy bruising All Other Systems: negative except mentioned in HPI (Donald Couch MD) Physical Exam Vital Signs Date Time Temp Pulse Resp B/P (MAP) Pulse Ox O2 Delivery O2 Flow Rate FiO2 11/18/18 05:30 98.4 85 18 145/82 (103) 92 Room Air Vitals normal Sp02 EP Interpretation: reviewed, normal General Appearance: well appearing, no apparent distress, alert, obese Head: normocephalic, atraumatic Eyes: bilateral eye PERRL, bilateral eye EOMI ENT: hearing grossly normal, normal pharynx Neck: full range of motion, supple, no meningismus Respiratory: chest non-tender, lungs clear, normal breath sounds Cardiovascular #1: regular rate, rhythm, no murmur Gastrointestinal: normal bowel sounds, non tender, no mass, no organomegaly, no bruit, non-distended, other - Very protuberant abdomen. Nontender. Musculoskeletal: back normal, gait/station normal, normal range of motion Psychiatric: mood/affect normal Skin: warm/dry (Donald Couch MD) Medical Decision Making Diagnostic Impression: Primary Impression: Renal failure Additional Impressions: CHF exacerbation Elevated troponin ER Course With abdominal distention is affecting his breathing. This may be secondary to liver disease, ascites from previous alcohol abuse. Labs and CT. I will sign this patient out to Dr. Cochran for final disposition. (Donald Couch MD) ER Course This patient was turned over to me by Dr. Couch. This patient had presented with worsening shortness of breath on exertion, orthopnea and a distended abdomen. The patient was pending labs, CT scan and final disposition. The patient's laboratory work-up is consistent with acute renal failure. The patient also had an elevated troponin. This could be an NSTEMI. CT scan of the abdomen and pelvis showed.... Laboratory Tests Test 11/18/18 06:00 11/18/18 07:25 White Blood Count 7.8 K/UL (4.8-10.8) Red Blood Count 5.39 M/UL (4.70-6.10) Hemoglobin 15.2 G/DL (14.2-18.0) Hematocrit 47.1 % (42.0-52.0) Mean Corpuscular Volume 88 FL (80-99) Mean Corpuscular Hemoglobin 28.1 PG (27.0-31.0) Mean Corpuscular Hemoglobin Concent 32.1 G/DL (32.0-36.0) Red Cell Distribution Width 13.9 % (11.6-14.8) Platelet Count 232 K/UL (150-450) Mean Platelet Volume 7.9 FL (6.5-10.1) Neutrophils (%) (Auto) 60.2 % (45.0-75.0) Lymphocytes (%) (Auto) 26.9 % (20.0-45.0) Monocytes (%) (Auto) 8.4 % (1.0-10.0) Eosinophils (%) (Auto) 3.6 % (0.0-3.0) H Basophils (%) (Auto) 1.0 % (0.0-2.0) Prothrombin Time 9.8 SEC (9.30-11.50) Prothrombin Time INR 0.9 (0.9-1.1) PTT 26 SEC (23-33) Sodium Level 144 MMOL/L (136-145) Potassium Level 4.0 MMOL/L (3.5-5.1) Chloride Level 105 MMOL/L (98-107) Carbon Dioxide Level 34 MMOL/L (21-32) H Anion Gap 6 mmol/L (5-15) Blood Urea Nitrogen 24 mg/dL (7-18) H Creatinine 1.7 MG/DL (0.55-1.30) H Estimate Glomerular Filtration Rate mL/min (>60) Glucose Level 203 MG/DL (74-106) H Calcium Level 8.6 MG/DL (8.5-10.1) Total Bilirubin 0.4 MG/DL (0.2-1.0) Aspartate Amino Transferase (AST) 15 U/L (15-37) Alanine Aminotransferase (ALT) 18 U/L (12-78) Alkaline Phosphatase 66 U/L (46-116) Troponin I 0.180 ng/mL (0.000-0.056) Pro-B-Type Natriuretic Peptide 393 pg/mL (0-125) H Total Protein 6.6 G/DL (6.4-8.2) Albumin 3.2 G/DL (3.4-5.0) L Globulin 3.4 g/dL Albumin/Globulin Ratio 0.9 (1.0-2.7) L Lipase 102 U/L (73-393) Urine Color Yellow Urine Appearance Clear Urine pH 5 (4.5-8.0) Urine Specific [place] 1.020 (1.005-1.035) Urine Protein Negative (NEGATIVE) Urine Glucose (UA) 1+ (NEGATIVE) H Urine Ketones Negative (NEGATIVE) Urine Blood Negative (NEGATIVE) Urine Nitrite Negative (NEGATIVE) Urine Bilirubin Negative (NEGATIVE) Urine Urobilinogen 4 MG/DL (0.0-1.0) H Urine Leukocyte Esterase Negative (NEGATIVE) (Machelle Cochran DO) EKG Diagnostic Results Rate: normal Rhythm: NSR ST Segments: no acute changes (Machelle Cochran DO) Rhythm Strip Diag. Results EP Interpretation: yes Rate: 70's Rhythm: NSR, no PVC's, no ectopy (Machelle Cochran Johnny SIMEON) Chest X-Ray Diagnostic Results Chest X-Ray Diagnostic Results : Chest X-Ray Ordered: Yes # of Views/Limited/Complete: 1 View Indication: Shortness of Breath EP Interpretation: Yes Interpretation: no consolidation, no effusion, no pneumothorax, other - Cardiomegaly Impression: Other - Cardiomegaly Electronically Signed by: Machelle Cochran DO (Machelle Cochran Johnny ) CT/MRI/US Diagnostic Results CT/MRI/US Diagnostic Results : Imaging Test Ordered: CT abd/pelvis Impression No acute findings. See official report in the electronic medical record. (Machelle Cochran DO) Last Vital Signs Date Time Temp Pulse Resp B/P (MAP) Pulse Ox O2 Delivery O2 Flow Rate FiO2 11/18/18 05:30 98.4 85 18 145/82 (103) 92 Room Air Status: improved (Donald Couch MD) Disposition: ADMITTED INPATIENT Condition: Serious Referrals: Delano Walters DO (PCP) Donald Couch MD Nov 18, 2018 05:53 Machelle Cochran DO Nov 18, 2018 06:46
[2018-11-18 06:13] LABS: EOSINOPHILS % (AUTO) 3.6 % (0.0-3.0); HEMATOCRIT 47.1 % (42.0-52.0); HEMOGLOBIN 15.2 G/DL (14.2-18.0); LYMPHOCYTES % (AUTO) 26.9 % (20.0-45.0); MEAN CORPUSCULAR VOLUME 88 FL (80-99); MONOCYTES % (AUTO) 8.4 % (1.0-10.0); NEUTROPHILS % (AUTO) 60.2 % (45.0-75.0); PLATELET COUNT 232 K/UL (150-450); RED BLOOD COUNT 5.39 M/UL (4.70-6.10); RED CELL DISTRIBUTION WIDTH 13.9 % (11.6-14.8); WHITE BLOOD COUNT 7.8 K/UL (4.8-10.8)
[2018-11-18 06:27] LABS: ANION GAP 6 mmol/L (5-15); BLOOD UREA NITROGEN 24 mg/dL (7-18); CALCIUM 8.6 MG/DL (8.5-10.1); CARBON DIOXIDE 34 MMOL/L (21-32); CHLORIDE 105 MMOL/L (98-107); CREATININE 1.7 MG/DL (0.55-1.30); SODIUM 144 MMOL/L (136-145)
[2018-11-18 06:31] LABS: ALANINE AMINOTRANSFERASE 18 U/L (12-78); ALBUMIN 3.2 G/DL (3.4-5.0); ALBUMIN/GLOBULIN RATIO 0.9 (1.0-2.7); ALKALINE PHOSPHATASE 66 U/L (46-116); ASPARTATE AMINO TRANSFERASE 15 U/L (15-37); BILIRUBIN,TOTAL 0.4 MG/DL (0.2-1.0)
[2018-11-18 06:32] LABS: INR 0.9 (0.9-1.1)
--- NOTE | 2018-11-18 06:37 | NUR ---
ED Nurse Note: ERMD notified regarding pt's elevated troponin.
--- NOTE | 2018-11-18 06:45 | NUR ---
ED Nurse Note: pt off to CT.
--- NOTE | 2018-11-18 07:05 | NUR ---
HAND-OFF: Report given to RN Ivette and endorsed care. safety precautions in place, vss, NSR on nurse monitoring. iv intact and patent.
--- NOTE | 2018-11-18 07:10 | NUR ---
ED Nurse Note: recieved pt on bed, with vs within normal limit. pt noted to have non productive cough, with horseness. pt able to give urine at this time and was sent to lab. pt stated he was on radiation therapy for 36 consecutive session in the past and was got biopsy by dr arevalo 2 weeks ago on his esophagus,. will continue to monitor
[2018-11-18] MEDS ORDERED: Aspirin Baby 81mg ORAL ONE (07:30)
--- NOTE | 2018-11-18 07:30 | NUR ---
ED Nurse Note: pt was medicated and tolerated well.
[2018-11-18 07:38] LABS: APPEARANCE,URINE CLEAR; BILIRUBIN, URINE NEGATIVE (NEGATIVE); GLUCOSE, URINE (UA) 1+ (NEGATIVE); KETONES,URINE NEGATIVE (NEGATIVE); LEUKOCYTE ESTERASE ,URINE NEGATIVE (NEGATIVE); NITRITE,URINE NEGATIVE (NEGATIVE); PH,URINE 5 (4.5-8.0); PROTEIN,URINE NEGATIVE (NEGATIVE); UROBILINOGEN,URINE 4 MG/DL (0.0-1.0)
[2018-11-18 07:39] LABS: COLOR,URINE YELLOW
--- NOTE | 2018-11-18 08:55 | NUR ---
ED Nurse Note: attempted to give report to rn for room 238 and rn is doing medpass, will call back after 10 mins.
--- NOTE | 2018-11-18 08:58 | Diagnostic Imaging Report ---
Indication: Abdominal pain Technique: Spiral acquisitions obtained through the abdomen and pelvis. No oral contrast utilized, per emergency room physician request No IV contrast utilized, per referring physician request.. Multiplanar reconstructions were generated. Total dose length product 1008.28 mGycm. CTDIvol(s) 18.6 mGy. Dose reduction achieved using automated exposure control Comparison: None Findings: Lack of enteric contrast limits assessment of the GI tract. Streak artifact from hip hardware may obscure portions of the lower pelvis. Proximal small bowel loops are mildly prominent, fluid-filled, although not frankly dilated and no definite distal transition point is demonstrated. Normal appendix. There is colonic diverticulosis, but no findings to suggest acute diverticulitis. Distal esophagus demonstrates a small hiatal hernia. The remainder of the stomach is unremarkable. The duodenum is unremarkable. No free or loculated intraperitoneal gas or fluid is evident. Lack of IV contrast limits assessment of the solid organs. The liver, gallbladder, bile ducts, pancreas are unremarkable. The spleen demonstrates granulomatous calcifications. The adrenals and kidneys are unremarkable. No renal or ureteral calculi, hydronephrosis, or hydroureter. No gross pelvic mass or adenopathy. There is a tiny fat-containing umbilical hernia Included lung bases are somewhat obscured by motion artifact, are grossly clear. The bones demonstrate degenerative spondylosis changes as well as the previously mentioned hip prostheses. There is some edema of the lumbar region subcutaneous fat.. Impression: Limited assessment of the GI tract, due to lack of enteric contrast administration Somewhat prominent fluid-filled proximal small bowel loops, normal caliber distal small bowel without definite transition point. Nonspecific, may indicate mild enteritis changes or ileus or could be baseline for this patient. Partial/early small bowel obstruction deemed less likely Colonic diverticulosis. No evidence of diverticulitis Small hiatal hernia Limited assessment of the pelvis due to streak artifact from bilateral hip prostheses Other findings as noted, including edema of the lumbar region subcutaneous fat, degenerative spondylosis, tiny fat-containing umbilical hernia, splenic granulomatous calcifications The CT scanner at [facility] is accredited by the [employer] and the scans are performed using protocols designed to limit radiation exposure to as low as reasonably achievable to attain images of sufficient resolution adequate for diagnostic evaluation.
--- NOTE | 2018-11-18 09:40 | NUR ---
ED Nurse Note: pt is admitted to hospital. report given to Emily castillo.
--- NOTE | 2018-11-18 09:40 | NUR ---
NURSE NOTES: Received telephone report from Ivette MCGEE.
--- NOTE | 2018-11-18 09:45 | NUR ---
ED Nurse Note: pt was transfered to sdu 238-1 with stable vs and all belongings was endorsed to Emily MCGEE.
--- NOTE | 2018-11-18 09:51 | NUR ---
NURSE NOTES: Received pt. from ED. Pt. a/o x 4. No sign of distress. Denies pain at present. Pt. verbalized to RN his main concern is his tummy got big. Pt. able to ambulate from gurney to bed with stand by assist. IV at right AC #20g. in placed patent/intact. Body assessment done noted skin intact. Pt. provided with urinal at bedside and yellow socks. Bed in low position, locked. Call light within reach. Will cont. to monitor.
[2018-11-18 11:13] LABS: CREATINE KINASE 106 U/L (26-308)
[2018-11-18] MEDS ORDERED: Morphine Sulfate 2mg/ml Inj(IV/IM USE ONLY) IVP PRN ×2 (11:15→12:30)
[2018-11-18] MEDS ORDERED: HYDROcodone/Acetamin 10/325 tab ORAL PRN ×2 (11:15→12:30)
--- NOTE | 2018-11-18 11:17 | Consultation ---
History of Present Illness General Date patient seen: Nov 18, 2018 Chief Complaint: General Complaint Present Illness HPI 73-year-old male with with hx of CABG, CAD, ETOH, Asthma, Villalobos's esophagus presented to ER with chief complaint of abdominal distention and shortness of breath over a year but is gotten worse progressively. He came in because distention is so bad that is affected his walking and breathing. No trauma. No chest pain. Denies any complaint. Pt was found to have ATN, positive troponin and admitted to [facility] for further management. Allergies: Coded Allergies: Dairy (Verified Allergy, Severe, Swollen lips, 09/29/15) GRAPEFRUIT (Verified Allergy, Intermediate, Rash, itching, 09/29/15) ORANGE JUICE (Verified Allergy, Intermediate, Itching, 09/29/15) POLLEN EXTRACTS (Verified Allergy, Intermediate, itching, sneezing, watery eyes, 09/29/15) Medication History Scheduled Albuterol Sulfate* (Proair Hfa*), 1 PUFF INH Q6H, (Reported) Carvedilol* (Carvedilol*), 25 MG ORAL BID, (Reported) Dexlansoprazole (Dexilant), 60 MG ORAL DAILY, (Reported) Folic Acid* (Folic Acid*), 1 MG ORAL DAILY, (Reported) Furosemide* (Lasix*), 40 MG ORAL DAILY, (Reported) Hydroxychloroquine Sulfate (Hydroxychloroquine Sulfate), 200 MG PO BID, ( Reported) Lisinopril* (Prinivil*), 10 MG ORAL BID, (Reported) Metformin Hcl* (Metformin Hcl*), 500 MG ORAL TWICE A DAY, (Reported) Potassium Chloride (Klor-Con 8), 8 MEQ ORAL DAILY, (Reported) Prednisone (Prednisone), 2 MG PO DAILY, (Reported) Rosuvastatin Calcium* (Crestor*), 40 MG ORAL DAILY, (Reported) Sitagliptin* (Januvia*), 100 MG ORAL DAILY, (Reported) Scheduled PRN Hydrocodone Bit/Acetaminophen 10-325* ([place] 10-325*), 1 TAB ORAL Q4H PRN for For Pain, (Reported) Oxycodone Hcl* (Oxycodone Hcl*), Unknown Dose ORAL Q4H PRN for For Pain, ( Reported) Miscellaneous Medications Phenylephrine/Dm/Acetaminop/Gg (Tylenol Cold & Flu Severe Cplt), 1 EACH PO, ( Reported) Patient History Healthcare decision maker Resuscitation status Advanced Directive on File Past Medical/Surgical History Past Medical/Surgical History: (1) CAD (coronary artery disease) (2) HTN (hypertension) (3) History of ETOH abuse (4) 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 (5) Diabetes (6) Pancreatitis (7) Barretts esophagus (8) COPD (chronic obstructive pulmonary disease) (9) Large hiatal hernia (10) History of coronary artery bypass graft Review of Systems Constitutional: Reports: no symptoms Eye: Reports: no symptoms ENT: Reports: no symptoms Respiratory: Reports: no symptoms Physical Exam General Appearance: WD/WN, no apparent distress Lines, tubes and drains: peripheral HEENT: normocephalic, atraumatic Neck: non-tender, normal alignment Respiratory/Chest: chest wall non-tender, lungs clear Cardiovascular/Chest: normal peripheral pulses, normal rate, regular rhythm Abdomen: normal bowel sounds, non tender Genitourinary/Rectal: normal genital exam, normal rectal exam Extremities: normal range of motion, non-tender Skin Exam: normal pigmentation Neurologic: pension agent II-XII grossly normal Last 24 Hour Vital Signs Date Time Temp Pulse Resp B/P (MAP) Pulse Ox O2 Delivery O2 Flow Rate FiO2 11/18/18 10:18 Room Air 11/18/18 10:00 97.7 73 20 103/53 (70) 94 11/18/18 09:45 98.4 79 16 128/72 93 Room Air 2.0 11/18/18 09:00 98.4 79 16 128/72 93 Room Air 2.0 11/18/18 07:41 79 19 132/73 94 Room Air 11/18/18 07:05 98.4 82 24 108/67 94 Nasal Cannula 2.0 11/18/18 06:05 98.4 78 24 122/60 94 Room Air 11/18/18 06:05 72 24 Room Air 11/18/18 05:30 98.4 85 18 145/82 (103) 92 Room Air Intake and Output 11/17/18 11/18/18 19:00 07:00 Intake Total 10 ml Balance 10 ml Intake IV Total 10 ml # Voids 1 Laboratory Tests Test 11/18/18 06:00 11/18/18 07:25 White Blood Count 7.8 K/UL (4.8-10.8) Red Blood Count 5.39 M/UL (4.70-6.10) Hemoglobin 15.2 G/DL (14.2-18.0) Hematocrit 47.1 % (42.0-52.0) Mean Corpuscular Volume 88 FL (80-99) Mean Corpuscular Hemoglobin 28.1 PG (27.0-31.0) Mean Corpuscular Hemoglobin Concent 32.1 G/DL (32.0-36.0) Red Cell Distribution Width 13.9 % (11.6-14.8) Platelet Count 232 K/UL (150-450) Mean Platelet Volume 7.9 FL (6.5-10.1) Neutrophils (%) (Auto) 60.2 % (45.0-75.0) Lymphocytes (%) (Auto) 26.9 % (20.0-45.0) Monocytes (%) (Auto) 8.4 % (1.0-10.0) Eosinophils (%) (Auto) 3.6 % (0.0-3.0) H Basophils (%) (Auto) 1.0 % (0.0-2.0) Prothrombin Time 9.8 SEC (9.30-11.50) Prothromb Time International Ratio 0.9 (0.9-1.1) Activated Partial Thromboplast Time 26 SEC (23-33) Sodium Level 144 MMOL/L (136-145) Potassium Level 4.0 MMOL/L (3.5-5.1) Chloride Level 105 MMOL/L (98-107) Carbon Dioxide Level 34 MMOL/L (21-32) H Anion Gap 6 mmol/L (5-15) Blood Urea Nitrogen 24 mg/dL (7-18) H Creatinine 1.7 MG/DL (0.55-1.30) H Estimat Glomerular Filtration Rate mL/min (>60) Glucose Level 203 MG/DL (74-106) H Uric Acid Pending Calcium Level 8.6 MG/DL (8.5-10.1) Total Bilirubin 0.4 MG/DL (0.2-1.0) Aspartate Amino Transf (AST/SGOT) 15 U/L (15-37) Alanine Aminotransferase (ALT/SGPT) 18 U/L (12-78) Alkaline Phosphatase 66 U/L (46-116) Total Creatine Kinase Pending Troponin I 0.180 ng/mL (0.000-0.056) Pro-B-Type Natriuretic Peptide 393 pg/mL (0-125) H Total Protein 6.6 G/DL (6.4-8.2) Albumin 3.2 G/DL (3.4-5.0) L Globulin 3.4 g/dL Albumin/Globulin Ratio 0.9 (1.0-2.7) L Lipase 102 U/L (73-393) Urine Color Yellow Urine Appearance Clear Urine pH 5 (4.5-8.0) Urine Specific [address] 1.020 (1.005-1.035) Urine Protein Negative (NEGATIVE) Urine Glucose (UA) 1+ (NEGATIVE) H Urine Ketones Negative (NEGATIVE) Urine Blood Negative (NEGATIVE) Urine Nitrite Negative (NEGATIVE) Urine Bilirubin Negative (NEGATIVE) Urine Urobilinogen 4 MG/DL (0.0-1.0) H Urine Leukocyte Esterase Negative (NEGATIVE) Height (Feet): 6 Height (Inches): 0.00 Weight (Pounds): 226 Assessment/Plan Problem List: (1) Acute respiratory failure ICD Codes: J96.00 - Acute respiratory failure, unspecified whether with hypoxia or hypercapnia SNOMED: 28809748 (2) ATN (acute tubular necrosis) ICD Codes: N17.0 - Acute kidney failure with tubular necrosis SNOMED: 17012900 (3) COPD (chronic obstructive pulmonary disease) ICD Codes: J44.9 - COPD (chronic obstructive pulmonary disease) SNOMED: 47293477 (4) EF 35% (5) Diabetes ICD Codes: E11.9 - Type 2 diabetes mellitus without complications SNOMED: 95640982 (6) History of ETOH abuse ICD Codes: F10.10 - History of ETOH abuse SNOMED: 891336610 (7) HTN (hypertension) ICD Codes: I10 - HTN (hypertension) SNOMED: 05028906 (8) CAD (coronary artery disease) ICD Codes: I25.10 - CAD (coronary artery disease) SNOMED: 24357397 (9) History of coronary artery bypass graft ICD Codes: Z95.1 - Presence of aortocoronary bypass graft SNOMED: 998347601, 881052799 Assessment/Plan: respiratory treatment check sputum titrate fio2 to sat of 92% antitussives CXR as needed GI evaluation check echo. previously pt had echos done showing EF of 35 and later on 50% dvt prophylaxis. symptomatic treatment. Zaheer Hidalgo MD Nov 18, 2018 11:17
[2018-11-18] MEDS ORDERED: LORazepam Inj 2mg/ml 1ml IV PRN (11:30)
[2018-11-18] MEDS: NovoLOG Insulin Flexpen SUBQ SCH ×3 (12:00→21:23)
--- NOTE | 2018-11-18 13:59 | Consultation ---
Consult Note Consult Note asked to eval at the request of dr Walters for renal failure This is a 73-year-old male with multiple medical problems. He had a history of alcohol abuse in the past. He also has a history of Villalobos's esophagus. Presents with chief complaint of abdominal distention and shortness of breath. Is been an ongoing problem for over a year but is gotten worse progressively. He came in because distention is so bad that is affected his walking and breathing. Worse when he lay flat. No trauma. No chest pain. Denies any complaint. Said he is no longer drinking. Coded Allergies: Dairy (Verified Allergy, Severe, Swollen lips, 09/29/15) GRAPEFRUIT (Verified Allergy, Intermediate, Rash, itching, 09/29/15) ORANGE JUICE (Verified Allergy, Intermediate, Itching, 09/29/15) POLLEN EXTRACTS (Verified Allergy, Intermediate, itching, sneezing, watery eyes, 09/29/15) Hx Cardiac Problems: Yes Hx Hypertension: Yes Hx Asthma: Yes Hx COPD: Yes Hx Diabetes: Yes 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 Hx Gastrointestinal Problems: Yes - VILLALOBOS'S ESOPHAGUS Hx Cerebrovascular Accident: Yes examined data reviewed . Assessment/Plan Renal Failure, ? multifactorial likely Acute on Chronic CHF: Echo in Jun 2018; Moderate left ventricular enlargement. Mid to distal septal and apical akinesis. Ischemic cardiomyopathy cannot be excluded. Left ventricular ejection fraction estimated to be 35-40 %. h/o Coronary artery disease, status post coronary artery bypass graft surgery. h/o of asthma. h/o of CVA. no residual History of diabetes mellitus. Plan: optimize cardiac and pulmonary status monitor renal parameters Urine studies per orders Hector Roper MD Nov 18, 2018 13:59
--- NOTE | 2018-11-18 14:43 | NUR ---
NURSE NOTES: Gave report to Papi MCGEE. Pt. remain stable.
[2018-11-18] MEDS ORDERED: Magnesium Citrate Liq Btl ORAL SCH (15:00)
--- NOTE | 2018-11-18 15:20 | NUR ---
NURSE NOTES: Received patient from [facility], report given by EVERARDO Solis. Pt is resting in bed, in stable condition. alert and oriented x4. Breathing is even and unlabored in room air. No acute distress noted at this time. Bed in lowest position with brake engaged and side rails up x2. Call light and side table placed within reach. Bed alarm on. Will continue to monitor.
--- NOTE | 2018-11-18 16:15 | History and Physical Report ---
DATE OF ADMISSION: 11/18/2018 CONSULTANTS: 1. Zaheer Hidalgo M.D. 2. Hector Roper M.D. 3. Deni Lombardo M.D. 4. Charles Hinds M.D. CHIEF COMPLAINT: Abdominal distention, shortness of breath, acute renal failure, congestive heart failure, elevated troponin, and cirrhosis. BRIEF HISTORY: This is a 73-year-old male, who lives at home, presented with two-day increased abdominal swelling, became short of breath, came to [facility] ER, diagnosed with the above, and admitted to [facility] for further care. Currently, sleeping in bed, slight short of breath. No complaint. REVIEW OF SYSTEMS: No chest pain. Slight short of breath. No nausea, vomiting, or diarrhea. PAST MEDICAL HISTORY: Includes acute tubular necrosis, CAD, hypertension, asthma, diabetes, COPD, and congestive heart failure. PAST SURGICAL HISTORY: Bypass and left hip. MEDICATIONS: Include Januvia, MiraLAX, Ambien, Jluis, Coreg, Tylenol, Cucumber, morphine, NovoLog, Zofran, Ativan, and Phenergan with codeine. ALLERGIES: Denies. SOCIAL HISTORY: No smoking. No alcohol. No intravenous drug abuse. FAMILY HISTORY: Noncontributory. PHYSICAL EXAMINATION: GENERAL: Slight short of breath in bed, oriented x2, and in no acute distress. VITAL SIGNS: Temperature is 97 degrees, pulse 73, respirations 20, and blood pressure 103/53. CARDIOVASCULAR: No murmurs. LUNGS: Poor air exchange. ABDOMEN: Bowel sounds distant. EXTREMITIES: Show no cyanosis or edema. LABORATORY AND DIAGNOSTIC DATA: Labs, at this time, show CBC is normal. BMP shows CO2 34, BUN and creatinine are 24 and 1.7, and glucose 203. Troponin 0.180. BNP is 393. Albumin 3.2. INR is 0.9. PTT is 26. Urinalysis show 1+ glucose. ASSESSMENT: 1. Acute renal failure. 2. Abdominal swelling. 3. Shortness of breath. 4. Congestive heart failure. 5. Elevated troponin. 6. Cirrhosis. 7. Hypertension. 8. CAD. 9. Arthritis. 10. Diabetes. 11. Chronic obstructive pulmonary disease. 12. Congestive heart failure. PLAN: 1. O2 and pulmonary treatment. 2. Antibiotics p.r.n. 3. Blood pressure and blood sugar control. 4. Dietary followup. 5. Troponin q.8 h. x3. 6. EKG in the a.m. 7. Resume home medications. Delano Walters D.O. DR: JETT JOB#: [id number] CC:
--- NOTE | 2018-11-18 16:17 | Cardiac Electrophysiology PN ---
Subjective Subjective [id number] Objective Last 24 Hour Vital Signs Date Time Temp Pulse Resp B/P (MAP) Pulse Ox O2 Delivery O2 Flow Rate FiO2 11/18/18 12:00 97.5 80 20 124/56 (78) 94 11/18/18 11:48 83 11/18/18 10:18 Room Air 11/18/18 10:03 72 11/18/18 10:00 97.7 73 20 103/53 (70) 94 11/18/18 09:45 98.4 79 16 128/72 93 Room Air 2.0 11/18/18 09:00 98.4 79 16 128/72 93 Room Air 2.0 11/18/18 07:41 79 19 132/73 94 Room Air 11/18/18 07:05 98.4 82 24 108/67 94 Nasal Cannula 2.0 11/18/18 06:05 98.4 78 24 122/60 94 Room Air 11/18/18 06:05 72 24 Room Air 11/18/18 05:30 98.4 85 18 145/82 (103) 92 Room Air Intake and Output 11/17/18 11/18/18 19:00 07:00 Intake Total 10 ml Balance 10 ml Intake IV Total 10 ml # Voids 1 Laboratory Tests Test 11/18/18 06:00 11/18/18 07:25 White Blood Count 7.8 K/UL (4.8-10.8) Red Blood Count 5.39 M/UL (4.70-6.10) Hemoglobin 15.2 G/DL (14.2-18.0) Hematocrit 47.1 % (42.0-52.0) Mean Corpuscular Volume 88 FL (80-99) Mean Corpuscular Hemoglobin 28.1 PG (27.0-31.0) Mean Corpuscular Hemoglobin Concent 32.1 G/DL (32.0-36.0) Red Cell Distribution Width 13.9 % (11.6-14.8) Platelet Count 232 K/UL (150-450) Mean Platelet Volume 7.9 FL (6.5-10.1) Neutrophils (%) (Auto) 60.2 % (45.0-75.0) Lymphocytes (%) (Auto) 26.9 % (20.0-45.0) Monocytes (%) (Auto) 8.4 % (1.0-10.0) Eosinophils (%) (Auto) 3.6 % (0.0-3.0) H Basophils (%) (Auto) 1.0 % (0.0-2.0) Prothrombin Time 9.8 SEC (9.30-11.50) Prothromb Time International Ratio 0.9 (0.9-1.1) Activated Partial Thromboplast Time 26 SEC (23-33) Sodium Level 144 MMOL/L (136-145) Potassium Level 4.0 MMOL/L (3.5-5.1) Chloride Level 105 MMOL/L (98-107) Carbon Dioxide Level 34 MMOL/L (21-32) H Anion Gap 6 mmol/L (5-15) Blood Urea Nitrogen 24 mg/dL (7-18) H Creatinine 1.7 MG/DL (0.55-1.30) H Estimat Glomerular Filtration Rate mL/min (>60) Glucose Level 203 MG/DL (74-106) H Uric Acid 7.2 MG/DL (2.6-7.2) Calcium Level 8.6 MG/DL (8.5-10.1) Total Bilirubin 0.4 MG/DL (0.2-1.0) Aspartate Amino Transf (AST/SGOT) 15 U/L (15-37) Alanine Aminotransferase (ALT/SGPT) 18 U/L (12-78) Alkaline Phosphatase 66 U/L (46-116) Total Creatine Kinase 106 U/L (26-308) Troponin I 0.180 ng/mL (0.000-0.056) Pro-B-Type Natriuretic Peptide 393 pg/mL (0-125) H Total Protein 6.6 G/DL (6.4-8.2) Albumin 3.2 G/DL (3.4-5.0) L Globulin 3.4 g/dL Albumin/Globulin Ratio 0.9 (1.0-2.7) L Lipase 102 U/L (73-393) Urine Color Yellow Urine Appearance Clear Urine pH 5 (4.5-8.0) Urine Specific [place] 1.020 (1.005-1.035) Urine Protein Negative (NEGATIVE) Urine Glucose (UA) 1+ (NEGATIVE) H Urine Ketones Negative (NEGATIVE) Urine Blood Negative (NEGATIVE) Urine Nitrite Negative (NEGATIVE) Urine Bilirubin Negative (NEGATIVE) Urine Urobilinogen 4 MG/DL (0.0-1.0) H Urine Leukocyte Esterase Negative (NEGATIVE) Deni Lombardo MD Nov 18, 2018 16:17
--- NOTE | 2018-11-18 16:27 | Diagnostic Imaging Report ---
Indication: Shortness of breath Technique: One view of the chest Comparison: 08/12/2018 Findings: Heart is enlarged. There are median sternotomy sutures and evidence of prior CABG. Lungs and pleural spaces are clear. No significant interim change Impression: No acute process Cardiomegaly
[2018-11-18] MEDS: Carvedilol 25mg Tab ORAL SCH (17:31)
[2018-11-18] MEDS: Docusate 100mg cap ORAL SCH (17:31)
--- NOTE | 2018-11-18 17:46 | Diagnostic Imaging Report ---
Indication: Abnormal renal function Technique: Grayscale and duplex images of the kidneys, retroperitoneum, and bladder were obtained. Comparison: Reference made to abdomen pelvis CT of earlier the same day Findings: Right kidney measures 13.1 cm in length. Left kidney measures 12.2 cm in length. Both kidneys demonstrate normal echogenicity. No hydronephrosis. Echogenic foci in the right upper pole renal sinus are presumably artifactual given absence of calculi on recent CT scan. Normal inferior vena cava. Bladder is normal. Impression: negative.
[2018-11-18] MEDS ORDERED: Docusate 100mg cap ORAL SCH (18:00)
--- NOTE | 2018-11-18 18:15 | Consultation ---
DATE OF CONSULTATION: 11/18/2018 CARDIOLOGY CONSULTATION CONSULTING PHYSICIAN: Deni Lombardo M.D. REFERRING PHYSICIAN: Delano Walters D.O. REASON FOR CONSULTATION: Congestive heart failure. HISTORY OF PRESENT ILLNESS: The patient is a 73-year-old gentleman with history of hypertension and history of alcohol abuse and Villalobos's esophagus, who presented to the emergency room for increasing abdominal pain and shortness of breath and lower extremity edema that has been going on for over a year. It has been getting worse gradually. The patient feels that abdominal distention is so bad that it is affecting his breathing and walking much and worse when laying flat. A Cardiology consultation was obtained for further evaluation and management. PAST MEDICAL HISTORY: 1. Hypertension. 2. Diabetes. 3. History of coronary artery bypass graft. 4. History of alcohol and history of cocaine use. FAMILY HISTORY: Noncontributory. REVIEW OF SYSTEMS: Review of systems was negative other than what is mentioned in the history of present illness. PHYSICAL EXAMINATION: VITAL SIGNS: Show blood pressure of 124/56, pulse is 80, respirations 18, and temperature 97.5. HEAD AND NECK: Shows mild JVD. LUNGS: Decreased breath sounds. CARDIOVASCULAR: Shows regular S1 and S2 with no gallop or murmur. ABDOMEN: Soft. EXTREMITIES: A 1+ pitting edema. DIAGNOSTIC DATA: His echocardiogram in June of 2018 showed ejection fraction of 35% to 40%. LABORATORY DATA: His laboratories showed white count of 7.9, hemoglobin of 15.2, hematocrit of 47.5, and platelet count is 232,000. Sodium 144, potassium 4.0, BUN of 25, creatinine 1.2, and glucose of 203. Troponin 0.18. BNP 393. INR is 0.9. ASSESSMENT AND PLAN: 1. Congestive heart failure. His echocardiogram showed ejection fraction of still 30%. The patient has history of ischemic cardiomyopathy and prior bypass graft. We will maximize his heart failure therapy with Coreg 25 b.i.d. and lisinopril 10 mg daily. I will add Lasix 40 IV daily to his medical regimen as well. 2. Elevated troponin. The patient has history of coronary artery bypass graft. Continue Coreg. Add aspirin and Lipitor to his regimen if okay from a GI perspective. 3. Mild renal failure, creatinine 1.7. 4. History of alcohol abuse and Villalobos's esophagus. 5. Diabetes. On metformin. 6. 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 Thank you very much for allowing me participate in the care of this patient. Please do not hesitate to contact me for any questions regarding my evaluation. Deni Lombardo M.D. DR: IQ JOB#: [id number] CC:
[2018-11-18] MEDS: Promethazine/Codeine 5ml UD ORAL PRN ×2 (18:20→18:21)
--- NOTE | 2018-11-18 19:00 | Consultation ---
DATE OF CONSULTATION: 11/18/2018 GASTROENTEROLOGY CONSULTATION CONSULTING PHYSICIAN: Charles Hinds M.D. REFERRING PHYSICIAN: Delano Walters D.O. CHIEF COMPLAINT: Constipation, increased abdominal pain, and abdominal distention. HISTORY OF PRESENT ILLNESS: This is a very pleasant 73-year-old male, known to me from multiple years of having problems. He has Villalobos esophagus. He had a recent endoscopy which confirmed persistent Villalobos esophagus without any dysplasia. He actually was doing well and then he had severe abdominal pain, increased abdominal distention to the point that he could not breathe, so he decided to come to the hospital. PAST MEDICAL HISTORY: 1. Coronary artery disease and CABG. 2. History of alcohol usage. 3. Asthma. 4. Villalobos esophagus. 5. Diabetes. 6. Hiatal hernia. 7. Squamous cell carcinoma of the skin. ALLERGIES: To grape fruits, orange juice, pollen, dairy products. FAMILY HISTORY: Noncontributory. SOCIAL HISTORY: The patient is a . He used to smoke and drink. PAST SURGICAL HISTORY: Few skin surgeries. PHYSICAL EXAMINATION: VITAL SIGNS: Temperature 97.5, pulse 80, respiration 20, blood pressure 124/56. HEENT: Normocephalic and atraumatic. Sclerae anicteric. NECK: Supple. No evidence of obvious lymphadenopathy. CARDIOVASCULAR: Regular rhythm. Plus S1 and S2. No obvious murmur. LUNGS: Decreased breath sounds bilaterally. ABDOMEN: Soft, mildly distended, mildly tympanic to percussion. No rebound. No guarding. No peritoneal sign. EXTREMITIES: No cyanosis. No clubbing. No edema. LABORATORY AND DIAGNOSTIC DATA: White count 7.9, Hemoglobin 15, hematocrit 47, and platelet count is 232,000. Sodium 144, potassium 4.0, BUN is 24, creatinine is 1.7, glucose is 203. Troponin elevated at 0.18. Imaging study, the patient had a CT of the abdomen and pelvis done without contrast, which showed limited study with no contrast, fluid-filled small-bowel loops, normal-caliber distal small-bowel loops, no definite transition point may indicate mild enteritis, changes of ileus, or could be baseline for this patient, partial early small-bowel obstruction being less likely. ASSESSMENT AND PLAN: This is a 73-year-old male with abdominal distention. CT did not show any obvious small-bowel obstruction. The patient is constipated because he has not had a bowel movement for a few days. He is currently on MiraLAX with Colace, and we will give him a dose of magnesium citrate. We will repeat his labs tomorrow. The patient needs to be on a PPI daily given Villalobos esophagus. Given elevated troponin, we are going to hold off doing any endoscopy procedure at this time. I want to thank Dr. Delano Walters for this kind referral. Charles Hinds M.D. DR: Adrian JOB#: [id number] CC: Delano Walters D.O.
--- NOTE | 2018-11-18 19:48 | NUR ---
HAND-OFF: Report given to EVERARDO Bustos.
--- NOTE | 2018-11-18 19:50 | NUR ---
NURSE NOTES: Received pt from EVERARDO Morales. Pt asleep. Bed in lowest position. Call light within reach. Will continue to monitor.
[2018-11-18] MEDS: Heparin 5000 units/ml inj SUBQ SCH (21:00)
[2018-11-18] MEDS ORDERED: Zolpidem 5mg tab ORAL PRN (21:00)
[2018-11-18] MEDS ORDERED: Miralax 17gm pkt ORAL PRN (21:00)
[2018-11-18] MEDS: Theophylline ER 100mg ORAL SCH (21:22)
[2018-11-19] VITALS: BP 102/59
[2018-11-19 04:00] VITALS: BP 131/71
[2018-11-19] MEDS: sitaGLIPtin 50mg tab ORAL SCH (06:04)
[2018-11-19] MEDS: NovoLOG Insulin Flexpen SUBQ SCH ×4 (06:09→22:10)
[2018-11-19 06:45] LABS: BASOPHILS % (AUTO) 0.7 % (0.0-2.0); EOSINOPHILS % (AUTO) 3.5 % (0.0-3.0); HEMATOCRIT 47.9 % (42.0-52.0); HEMOGLOBIN 15.6 G/DL (14.2-18.0); LYMPHOCYTES % (AUTO) 22.4 % (20.0-45.0); MEAN CORPUSCULAR VOLUME 88 FL (80-99); MONOCYTES % (AUTO) 7.8 % (1.0-10.0); NEUTROPHILS % (AUTO) 65.6 % (45.0-75.0); PLATELET COUNT 209 K/UL (150-450); RED BLOOD COUNT 5.47 M/UL (4.70-6.10); RED CELL DISTRIBUTION WIDTH 13.7 % (11.6-14.8); WHITE BLOOD COUNT 7.6 K/UL (4.8-10.8)
[2018-11-19 07:16] LABS: ALANINE AMINOTRANSFERASE 19 U/L (12-78); ALBUMIN 3.1 G/DL (3.4-5.0); ALBUMIN/GLOBULIN RATIO 0.7 (1.0-2.7); ALKALINE PHOSPHATASE 68 U/L (46-116); AMYLASE 37 U/L (25-115); ANION GAP 6 mmol/L (5-15); ASPARTATE AMINO TRANSFERASE 15 U/L (15-37); BILIRUBIN,TOTAL 0.5 MG/DL (0.2-1.0); BLOOD UREA NITROGEN 20 mg/dL (7-18); CALCIUM 9.2 MG/DL (8.5-10.1); CARBON DIOXIDE 31 MMOL/L (21-32); CHLORIDE 105 MMOL/L (98-107); CHOLESTEROL 226 MG/DL (< 200); CREATININE 1.4 MG/DL (0.55-1.30); HDL CHOLESTEROL 29 MG/DL (40-60); PHOSPHORUS 2.8 MG/DL (2.5-4.9); POTASSIUM 4.6 MMOL/L (3.5-5.1); SODIUM 142 MMOL/L (136-145); TRIGLYCERIDES 200 MG/DL (30-150)
--- NOTE | 2018-11-19 07:41 | NUR ---
HAND-OFF: Report given to EVERARDO Johnson. Pt stable.
--- NOTE | 2018-11-19 07:42 | NUR ---
NURSE NOTES: Report received from EVERARDO Bustos. Pt is sitting on chair, eating breakfast. Breathing is even and unlabored in room air. No acute distress noted at this time. Bed in lowest position with brake engaged and side rails up x2. Call light and side table placed within reach. Will continue to monitor.
[2018-11-19 08:00] VITALS: BP 111/61
[2018-11-19] MEDS: Theophylline ER 100mg ORAL SCH ×2 (09:59→22:09)
[2018-11-19] MEDS: Docusate 100mg cap ORAL SCH ×3 (09:59→17:11)
[2018-11-19] MEDS: Carvedilol 25mg Tab ORAL SCH ×2 (10:00→17:11)
[2018-11-19] MEDS: Lisinopril 10mg tab ORAL SCH (10:00)
[2018-11-19] MEDS: Heparin 5000 units/ml inj SUBQ SCH ×2 (10:02→21:00)
--- NOTE | 2018-11-19 10:22 | GI Progress Note ---
Assessment/Plan Problems: (1) Elevated troponin ICD Codes: R74.8 - Abnormal levels of other serum enzymes SNOMED: 993634935, 845000053, 435991023 (2) Large hiatal hernia ICD Codes: K44.9 - Diaphragmatic hernia without obstruction or gangrene SNOMED: 31058543 (3) Barretts esophagus ICD Codes: K22.70 - Barretts esophagus SNOMED: 932768567 (4) Pancreatitis ICD Codes: K85.9 - Pancreatitis SNOMED: 75038159 (5) Diabetes ICD Codes: E11.9 - Type 2 diabetes mellitus without complications SNOMED: 98315155 Status: stable Status Narrative Discussed with Dr. Hinds. Assessment/Plan Abdominal pelvic CT reviewed did not show any obvious small bowel obstruction Follow-up cardiology recommendations given elevated troponin levels Advance diet Bowel regimen, continue MiraLAX plus Colace Magnesium citrate as needed PPI for Villalobos's esophagus PRN transfusions Zofran as needed Follow labs No plans for GI procedures at this time The patient was seen and examined at bedside and all new and available data was reviewed in the patients chart. I agree with the above findings, impression and plan. (Patient seen earlier today. Signature stamp does not reflect patient encounter time.). - Charles Hinds MD Subjective Gastrointestinal/Abdominal: Reports: no symptoms Objective Last 24 Hour Vital Signs Date Time Temp Pulse Resp B/P (MAP) Pulse Ox O2 Delivery O2 Flow Rate FiO2 11/19/18 10:00 111/61 11/19/18 10:00 68 117/61 11/19/18 08:00 97.3 68 20 111/61 (78) 93 11/19/18 04:00 98.1 70 20 131/71 (91) 100 11/19/18 04:00 59 11/19/18 00:00 69 11/19/18 00:00 97.9 70 20 102/59 (73) 93 11/18/18 21:00 Room Air 11/18/18 20:00 98.5 70 20 99/57 (71) 100 11/18/18 20:00 81 11/18/18 17:31 78 153/100 11/18/18 16:00 78 11/18/18 16:00 97.3 78 20 153/100 (117) 92 11/18/18 12:00 97.5 80 20 124/56 (78) 94 11/18/18 11:48 83 Intake and Output 11/18/18 11/19/18 18:59 06:59 # Voids 2 Laboratory Tests Test 11/18/18 22:10 11/19/18 05:55 Urine Eosinophils None seen (NONE SEEN) Urine Osmolality 726 mOsm/kg (429-449) H Urine Random Creatinine Pending Urine Random Microalbumin Pending Urine Random Sodium 150 mmol/L (20-110) H Urine Microalbumin/Creatinine Ratio Pending White Blood Count 7.6 K/UL (4.8-10.8) Red Blood Count 5.47 M/UL (4.70-6.10) Hemoglobin 15.6 G/DL (14.2-18.0) Hematocrit 47.9 % (42.0-52.0) Mean Corpuscular Volume 88 FL (80-99) Mean Corpuscular Hemoglobin 28.5 PG (27.0-31.0) Mean Corpuscular Hemoglobin Concent 32.6 G/DL (32.0-36.0) Red Cell Distribution Width 13.7 % (11.6-14.8) Platelet Count 209 K/UL (150-450) Mean Platelet Volume 7.1 FL (6.5-10.1) Neutrophils (%) (Auto) 65.6 % (45.0-75.0) Lymphocytes (%) (Auto) 22.4 % (20.0-45.0) Monocytes (%) (Auto) 7.8 % (1.0-10.0) Eosinophils (%) (Auto) 3.5 % (0.0-3.0) H Basophils (%) (Auto) 0.7 % (0.0-2.0) Erythrocyte Sedimentation Rate 36 MM/HR (0-20) H Sodium Level 142 MMOL/L (136-145) Potassium Level 4.6 MMOL/L (3.5-5.1) Chloride Level 105 MMOL/L (98-107) Carbon Dioxide Level 31 MMOL/L (21-32) Anion Gap 6 mmol/L (5-15) Blood Urea Nitrogen 20 mg/dL (7-18) H Creatinine 1.4 MG/DL (0.55-1.30) H Estimat Glomerular Filtration Rate mL/min (>60) Glucose Level 175 MG/DL (74-106) H Hemoglobin A1c 7.6 % (4.3-6.0) H Uric Acid 6.8 MG/DL (2.6-7.2) Calcium Level 9.2 MG/DL (8.5-10.1) Phosphorus Level 2.8 MG/DL (2.5-4.9) Magnesium Level 2.6 MG/DL (1.8-2.4) H Total Bilirubin 0.5 MG/DL (0.2-1.0) Aspartate Amino Transf (AST/SGOT) 15 U/L (15-37) Alanine Aminotransferase (ALT/SGPT) 19 U/L (12-78) Alkaline Phosphatase 68 U/L (46-116) Troponin I 0.097 ng/mL (0.000-0.056) C-Reactive Protein, Quantitative 2.6 mg/dL (0.00-0.90) H Pro-B-Type Natriuretic Peptide 507 pg/mL (0-125) H Total Protein 7.4 G/DL (6.4-8.2) Albumin 3.1 G/DL (3.4-5.0) L Globulin 4.3 g/dL Albumin/Globulin Ratio 0.7 (1.0-2.7) L Triglycerides Level 200 MG/DL (30-150) H Cholesterol Level 226 MG/DL (< 200) H LDL Cholesterol 161 mg/dL (<100) H HDL Cholesterol 29 MG/DL (40-60) L Cholesterol/HDL Ratio 7.8 (3.3-4.4) H Amylase Level 37 U/L (25-115) Lipase 98 U/L (73-393) Thyroid Stimulating Hormone (TSH) 2.215 uiU/mL (0.358-3.740) Height (Feet): 6 Height (Inches): 0.00 Weight (Pounds): 226 General Appearance: WD/WN, no apparent distress, alert Cardiovascular: normal rate Respiratory/Chest: normal breath sounds, no respiratory distress Abdominal Exam: normal bowel sounds, non tender, soft Extremities: normal range of motion, non-tender Pao Couch NP Nov 19, 2018 10:22
[2018-11-19 12:00] VITALS: BP 102/52
--- NOTE | 2018-11-19 12:30 | CDS Physician Query ---
Clarification is required for compliance, coding accuracy, and to reflect severity of illness for this patient Dear Dr. Deni Lombardo Date: 11/19/2018 [employer]/CDS Name: Elma Bill Clinical Documentation states: 11/18 note: 73 yo...presented to emergency room for increasing abdominal pain and shortness of breath and lower extremity edema...Congestive heart failure. His echocardiogram showed ejection fraction of still 30%. The patient has history of ischemic cardiomyopathy and prior bypass graft. We will maximize his heart failure therapy with Coreg 25 b.i.d. and lisinopril 10 mg daily. I will add Lasix 40 IV daily to his medical regimen as well. Please Clarify: Acuity [] Acute [] Chronic [] Acute on Chronic Type [] Systolic [] Diastolic [] Systolic & Diastolic (Combined) [] Other: Present on Admission: [] Yes [] No [] Clinically Undetermined Physician signature Date Please also document in your Progress Notes and/or Discharge Summary and indicate if the condition was present on admission. MTDD
--- NOTE | 2018-11-19 13:48 | General Progress Note ---
Assessment/Plan Problem List: (1) CHF exacerbation ICD Codes: I50.9 - Heart failure, unspecified SNOMED: 502014995, 60923187274704, 876651437 (2) HTN (hypertension) ICD Codes: I10 - HTN (hypertension) SNOMED: 10431471 (3) ATN (acute tubular necrosis) ICD Codes: N17.0 - Acute kidney failure with tubular necrosis SNOMED: 60857649 (4) Diabetes ICD Codes: E11.9 - Type 2 diabetes mellitus without complications SNOMED: 87085517 (5) COPD (chronic obstructive pulmonary disease) ICD Codes: J44.9 - COPD (chronic obstructive pulmonary disease) SNOMED: 05221789 Status: stable, progressing Assessment/Plan: pt diet bp control neph f/u cbc bmp am Subjective Allergies: Coded Allergies: Dairy (Verified Allergy, Severe, Swollen lips, 09/29/15) GRAPEFRUIT (Verified Allergy, Intermediate, Rash, itching, 09/29/15) ORANGE JUICE (Verified Allergy, Intermediate, Itching, 09/29/15) POLLEN EXTRACTS (Verified Allergy, Intermediate, itching, sneezing, watery eyes, 09/29/15) All Systems: reviewed and negative except above Subjective sl improved Objective Last 24 Hour Vital Signs Date Time Temp Pulse Resp B/P (MAP) Pulse Ox O2 Delivery O2 Flow Rate FiO2 11/19/18 12:00 66 11/19/18 12:00 98.4 65 20 102/52 (69) 91 11/19/18 10:00 111/61 11/19/18 10:00 68 117/61 11/19/18 09:00 Room Air 11/19/18 08:00 72 11/19/18 08:00 97.3 68 20 111/61 (78) 93 11/19/18 04:00 98.1 70 20 131/71 (91) 100 11/19/18 04:00 59 11/19/18 00:00 69 11/19/18 00:00 97.9 70 20 102/59 (73) 93 11/18/18 21:00 Room Air 11/18/18 20:00 98.5 70 20 99/57 (71) 100 11/18/18 20:00 81 11/18/18 17:31 78 153/100 11/18/18 16:00 78 11/18/18 16:00 97.3 78 20 153/100 (117) 92 Intake and Output 11/18/18 11/19/18 19:00 07:00 # Voids 2 Laboratory Tests 11/18/18 22:10: Urine Eosinophils None seen, Urine Osmolality 726H, Urine Random Creatinine [ Pending], Urine Random Microalbumin [Pending], Urine Random Sodium 150H, Urine Microalbumin/Creatinine Ratio [Pending] 11/19/18 05:55: White Blood Count 7.6, Red Blood Count 5.47, Hemoglobin 15.6, Hematocrit 47.9, Mean Corpuscular Volume 88, Mean Corpuscular Hemoglobin 28.5, Mean Corpuscular Hemoglobin Concent 32.6, Red Cell Distribution Width 13.7, Platelet Count 209, Mean Platelet Volume 7.1, Neutrophils (%) (Auto) 65.6, Lymphocytes (%) (Auto) 22.4, Monocytes (%) (Auto) 7.8, Eosinophils (%) (Auto) 3.5H, Basophils (%) (Auto ) 0.7, Erythrocyte Sedimentation Rate 36H, Sodium Level 142, Potassium Level 4.6 , Chloride Level 105, Carbon Dioxide Level 31, Anion Gap 6, Blood Urea Nitrogen 20H, Creatinine 1.4H, Estimat Glomerular Filtration Rate , Glucose Level 175H, Hemoglobin A1c 7.6H, Uric Acid 6.8, Calcium Level 9.2, Phosphorus Level 2.8, Magnesium Level 2.6H, Total Bilirubin 0.5, Aspartate Amino Transf (AST/SGOT) 15 , Alanine Aminotransferase (ALT/SGPT) 19, Alkaline Phosphatase 68, Troponin I 0.097H, C-Reactive Protein, Quantitative 2.6H, Pro-B-Type Natriuretic Peptide 507H, Total Protein 7.4, Albumin 3.1L, Globulin 4.3, Albumin/Globulin Ratio 0.7L , Triglycerides Level 200H, Cholesterol Level 226H, LDL Cholesterol 161H, HDL Cholesterol 29L, Cholesterol/HDL Ratio 7.8H, Amylase Level 37, Lipase 98, Thyroid Stimulating Hormone (TSH) 2.215 Height (Feet): 6 Height (Inches): 0.00 Weight (Pounds): 226 General Appearance: alert EENT: normal ENT inspection Neck: normal alignment Cardiovascular: normal peripheral pulses, normal rate, regular rhythm Respiratory/Chest: chest wall non-tender, lungs clear, normal breath sounds Abdomen: normal bowel sounds, non tender, soft Extremities: normal inspection Edema: no edema noted Arm (L), no edema noted Arm (R), no edema noted Leg (L), no edema noted Leg (R), no edema noted Pedal (L), no edema noted Pedal (R), no edema noted Generalized Neurologic: responsive, motor weakness Skin: normal pigmentation, warm/dry Delano Walters DO Nov 19, 2018 13:48
--- NOTE | 2018-11-19 14:21 | Pulmonology Progress Note ---
Assessment/Plan Problems: (1) Acute respiratory failure (2) ATN (acute tubular necrosis) (3) COPD (chronic obstructive pulmonary disease) (4) EF 35% (5) Diabetes (6) History of ETOH abuse (7) HTN (hypertension) (8) CAD (coronary artery disease) (9) History of coronary artery bypass graft Assessment/Plan respiratory treatment prn check sputum still pending titrate fio2 to sat of 92% titrate cardiac meds by cardiology antitussives GI evaluation check echo. previously pt had echos done showing EF of 35 and later on 50%, Echo yesterday showed EF of 30% dvt prophylaxis. symptomatic treatment. Subjective Interval Events: sitting up in the chair, no new complains Allergies: Coded Allergies: Dairy (Verified Allergy, Severe, Swollen lips, 09/29/15) GRAPEFRUIT (Verified Allergy, Intermediate, Rash, itching, 09/29/15) ORANGE JUICE (Verified Allergy, Intermediate, Itching, 09/29/15) POLLEN EXTRACTS (Verified Allergy, Intermediate, itching, sneezing, watery eyes, 09/29/15) Objective Last 24 Hour Vital Signs Date Time Temp Pulse Resp B/P (MAP) Pulse Ox O2 Delivery O2 Flow Rate FiO2 11/19/18 12:00 66 11/19/18 12:00 98.4 65 20 102/52 (69) 91 11/19/18 10:00 111/61 11/19/18 10:00 68 117/61 11/19/18 09:00 Room Air 11/19/18 08:00 72 11/19/18 08:00 97.3 68 20 111/61 (78) 93 11/19/18 04:00 98.1 70 20 131/71 (91) 100 11/19/18 04:00 59 11/19/18 00:00 69 11/19/18 00:00 97.9 70 20 102/59 (73) 93 11/18/18 21:00 Room Air 11/18/18 20:00 98.5 70 20 99/57 (71) 100 11/18/18 20:00 81 11/18/18 17:31 78 153/100 11/18/18 16:00 78 11/18/18 16:00 97.3 78 20 153/100 (117) 92 Intake and Output 11/18/18 11/19/18 19:00 07:00 # Voids 2 General Appearance: WD/WN Respiratory/Chest: chest wall non-tender, normal breath sounds Cardiovascular: normal peripheral pulses, normal rate Abdomen: normal bowel sounds, no organomegaly Genitourinary: normal external genitalia Extremities: no clubbing Skin: no rash 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 normal Lymphatic: no neck adenopathy Laboratory Tests 11/18/18 22:10: Urine Eosinophils None seen, Urine Osmolality 726H, Urine Random Creatinine [ Pending], Urine Random Microalbumin [Pending], Urine Random Sodium 150H, Urine Microalbumin/Creatinine Ratio [Pending] 11/19/18 05:55: White Blood Count 7.6, Red Blood Count 5.47, Hemoglobin 15.6, Hematocrit 47.9, Mean Corpuscular Volume 88, Mean Corpuscular Hemoglobin 28.5, Mean Corpuscular Hemoglobin Concent 32.6, Red Cell Distribution Width 13.7, Platelet Count 209, Mean Platelet Volume 7.1, Neutrophils (%) (Auto) 65.6, Lymphocytes (%) (Auto) 22.4, Monocytes (%) (Auto) 7.8, Eosinophils (%) (Auto) 3.5H, Basophils (%) (Auto ) 0.7, Erythrocyte Sedimentation Rate 36H, Sodium Level 142, Potassium Level 4.6 , Chloride Level 105, Carbon Dioxide Level 31, Anion Gap 6, Blood Urea Nitrogen 20H, Creatinine 1.4H, Estimat Glomerular Filtration Rate , Glucose Level 175H, Hemoglobin A1c 7.6H, Uric Acid 6.8, Calcium Level 9.2, Phosphorus Level 2.8, Magnesium Level 2.6H, Total Bilirubin 0.5, Aspartate Amino Transf (AST/SGOT) 15 , Alanine Aminotransferase (ALT/SGPT) 19, Alkaline Phosphatase 68, Troponin I 0.097H, C-Reactive Protein, Quantitative 2.6H, Pro-B-Type Natriuretic Peptide 507H, Total Protein 7.4, Albumin 3.1L, Globulin 4.3, Albumin/Globulin Ratio 0.7L , Triglycerides Level 200H, Cholesterol Level 226H, LDL Cholesterol 161H, HDL Cholesterol 29L, Cholesterol/HDL Ratio 7.8H, Amylase Level 37, Lipase 98, Thyroid Stimulating Hormone (TSH) 2.215 Current Medications Medications (Trade) Dose Ordered Sig/Marty Route PRN Reason Start Time Stop Time Status Last Admin Dose Admin Acetaminophen (Tylenol) 650 mg Q4H PRN ORAL Mild Pain/Temp > 100.5 11/18/18 12:30 12/18/18 12:29 Acetaminophen/ Hydrocodone Bitart ([place] 10/325) 1 tab Q4H PRN ORAL Moderate Pain (Pain Scale 4-6) 11/18/18 12:30 11/25/18 12:29 Atorvastatin Calcium (Lipitor) 10 mg BEDTIME ORAL 11/18/18 21:00 12/18/18 20:59 11/18/18 21:22 Carvedilol (Coreg) 25 mg BID ORAL 11/18/18 18:00 12/18/18 17:59 11/19/18 10:00 Dextrose (Dextrose 50%) 25 ml Q30M PRN IV Hypoglycemia 11/18/18 11:30 12/18/18 11:29 Dextrose (Dextrose 50%) 50 ml Q30M PRN IV Hypoglycemia 11/18/18 11:30 12/18/18 11:29 Docusate Sodium (Colace) 100 mg TID ORAL 11/18/18 18:00 12/18/18 17:59 11/19/18 12:04 Furosemide (Lasix) 40 mg DAILY IV 11/19/18 09:00 12/19/18 08:59 11/19/18 10:01 Heparin Sodium (Porcine) (Heparin 5000 units/ml) 5,000 units EVERY 12 HOURS SUBQ 11/18/18 21:00 12/18/18 20:59 11/19/18 10:02 Insulin Aspart (NovoLOG) BEFORE MEALS AND HS SUBQ 11/18/18 12:00 12/18/18 11:59 11/19/18 12:02 Lisinopril (Zestril) 10 mg DAILY ORAL 11/19/18 09:00 12/19/18 08:59 11/19/18 10:00 Lorazepam (Ativan 2mg/ml 1ml) 0.5 mg Q4H PRN IV For Anxiety 11/18/18 11:30 11/25/18 11:29 Morphine Sulfate (Morphine Sulfate) 1 mg Q4H PRN IVP Severe Pain (Pain Scale 7-10) 11/18/18 12:30 11/25/18 12:29 Ondansetron HCl (Zofran) 4 mg Q6H PRN IVP Nausea & Vomiting 11/18/18 11:30 12/18/18 11:29 Pantoprazole (Protonix) 40 mg DAILY ORAL 11/19/18 09:00 12/19/18 08:59 11/19/18 09:59 Polyethylene Glycol (Miralax) 17 gm HSPRN PRN ORAL Constipation 11/18/18 21:00 12/18/18 20:59 Promethazine HCl/ Codeine (Phenergan with Codeine) 5 ml Q4H PRN ORAL For Cough 11/18/18 11:30 12/18/18 11:29 11/18/18 18:21 Sitagliptin Phosphate (Januvia) 50 mg ACBREAKFAST ORAL 11/19/18 06:30 12/19/18 06:29 11/19/18 06:04 Theophylline (Navjot-Dur) 100 mg EVERY 12 HOURS ORAL 11/18/18 21:00 12/18/18 20:59 11/19/18 09:59 Zolpidem Tartrate (Ambien) 5 mg HSPRN PRN ORAL Insomnia 11/18/18 21:00 11/25/18 20:59 Zaheer Hidalgo MD Nov 19, 2018 14:21
--- NOTE | 2018-11-19 14:35 | NUR ---
P.T NOTE: P.T EVALUATION COMPLETED. PATIENT IS ALERT, O X 4, PLEASANT AND COOPERATIVE. PATIENT OVERALL IS CURRENTLY BASELINE INDEPENDENT WITH ADL/FUNCTIONAL MOBILITIES GAIT LOCOMOTION. SKILLED P.T SERVICE IS NOT WARRANTED AT THIS TIME. EDUCATED PATIENT ON SAFETY WITH MOBILITY AND ENCOURAGE HIM FOR OOB ACTIVITIES VS BED REST DURING STAY UNLESS OTHERWISE ORDERED. D/C P.T SERVICES.
[2018-11-19 16:00] VITALS: BP 111/72
--- NOTE | 2018-11-19 16:07 | Cardiology Report ---
APPROVED REPORT EKG Measurement Heart [id number] Normal sinus rhythm Nonspecific T wave abnormality Prolonged QT Abnormal ECG
--- NOTE | 2018-11-19 16:39 | Cardiac Electrophysiology PN ---
Assessment/Plan Assessment/Plan 1. Congestive heart failure due to acute on chronic systolic dysfunction. Echocardiogram showed ejection fraction of 30%. The patient has history of ischemic cardiomyopathy and prior CABG. Continue Coreg 25 bid, lisinopril 10 mg daily and Lasix 40 IV daily Likely will need ICD. QRSD 100 ms and would not meet criteria for BIV pacing 2. Elevated troponin. The patient has history of coronary artery bypass graft. Continue Coreg,aspirin and Lipitor 3. Mild renal failure, creatinine 1.4 today. 4. History of alcohol abuse and Villalobos's esophagus. 5. Diabetes. On metformin. 6. 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 GISELA RN Subjective Subjective Feeling better with diuresis. No CP.In SR Objective Last 24 Hour Vital Signs Date Time Temp Pulse Resp B/P (MAP) Pulse Ox O2 Delivery O2 Flow Rate FiO2 11/19/18 12:00 66 11/19/18 12:00 98.4 65 20 102/52 (69) 91 11/19/18 10:00 111/61 11/19/18 10:00 68 117/61 11/19/18 09:00 Room Air 11/19/18 08:00 72 11/19/18 08:00 97.3 68 20 111/61 (78) 93 11/19/18 04:00 98.1 70 20 131/71 (91) 100 11/19/18 04:00 59 11/19/18 00:00 69 11/19/18 00:00 97.9 70 20 102/59 (73) 93 11/18/18 21:00 Room Air 11/18/18 20:00 98.5 70 20 99/57 (71) 100 11/18/18 20:00 81 11/18/18 17:31 78 153/100 Intake and Output 11/18/18 11/19/18 19:00 07:00 # Voids 2 Laboratory Tests Test 11/18/18 22:10 11/19/18 05:55 Urine Eosinophils None seen (NONE SEEN) Urine Osmolality 726 mOsm/kg (429-449) H Urine Random Creatinine Pending Urine Random Microalbumin Pending Urine Random Sodium 150 mmol/L (20-110) H Urine Microalbumin/Creatinine Ratio Pending White Blood Count 7.6 K/UL (4.8-10.8) Red Blood Count 5.47 M/UL (4.70-6.10) Hemoglobin 15.6 G/DL (14.2-18.0) Hematocrit 47.9 % (42.0-52.0) Mean Corpuscular Volume 88 FL (80-99) Mean Corpuscular Hemoglobin 28.5 PG (27.0-31.0) Mean Corpuscular Hemoglobin Concent 32.6 G/DL (32.0-36.0) Red Cell Distribution Width 13.7 % (11.6-14.8) Platelet Count 209 K/UL (150-450) Mean Platelet Volume 7.1 FL (6.5-10.1) Neutrophils (%) (Auto) 65.6 % (45.0-75.0) Lymphocytes (%) (Auto) 22.4 % (20.0-45.0) Monocytes (%) (Auto) 7.8 % (1.0-10.0) Eosinophils (%) (Auto) 3.5 % (0.0-3.0) H Basophils (%) (Auto) 0.7 % (0.0-2.0) Erythrocyte Sedimentation Rate 36 MM/HR (0-20) H Sodium Level 142 MMOL/L (136-145) Potassium Level 4.6 MMOL/L (3.5-5.1) Chloride Level 105 MMOL/L (98-107) Carbon Dioxide Level 31 MMOL/L (21-32) Anion Gap 6 mmol/L (5-15) Blood Urea Nitrogen 20 mg/dL (7-18) H Creatinine 1.4 MG/DL (0.55-1.30) H Estimat Glomerular Filtration Rate mL/min (>60) Glucose Level 175 MG/DL (74-106) H Hemoglobin A1c 7.6 % (4.3-6.0) H Uric Acid 6.8 MG/DL (2.6-7.2) Calcium Level 9.2 MG/DL (8.5-10.1) Phosphorus Level 2.8 MG/DL (2.5-4.9) Magnesium Level 2.6 MG/DL (1.8-2.4) H Total Bilirubin 0.5 MG/DL (0.2-1.0) Aspartate Amino Transf (AST/SGOT) 15 U/L (15-37) Alanine Aminotransferase (ALT/SGPT) 19 U/L (12-78) Alkaline Phosphatase 68 U/L (46-116) Troponin I 0.097 ng/mL (0.000-0.056) C-Reactive Protein, Quantitative 2.6 mg/dL (0.00-0.90) H Pro-B-Type Natriuretic Peptide 507 pg/mL (0-125) H Total Protein 7.4 G/DL (6.4-8.2) Albumin 3.1 G/DL (3.4-5.0) L Globulin 4.3 g/dL Albumin/Globulin Ratio 0.7 (1.0-2.7) L Triglycerides Level 200 MG/DL (30-150) H Cholesterol Level 226 MG/DL (< 200) H LDL Cholesterol 161 mg/dL (<100) H HDL Cholesterol 29 MG/DL (40-60) L Cholesterol/HDL Ratio 7.8 (3.3-4.4) H Amylase Level 37 U/L (25-115) Lipase 98 U/L (73-393) Thyroid Stimulating Hormone (TSH) 2.215 uiU/mL (0.358-3.740) Objective HEAD AND NECK: Shows mild JVD. LUNGS: Decreased breath sounds. CARDIOVASCULAR: Shows regular S1 and S2 with no gallop or murmur. ABDOMEN: Soft. EXTREMITIES: A 1+ pitting edema. Deni Lombardo MD Nov 19, 2018 16:39
--- NOTE | 2018-11-19 16:40 | Nephrology Progress Note ---
Assessment/Plan Problem List: (1) Renal failure (ARF), acute on chronic (2) EF 35% (3) Diabetes (4) Elevated troponin Assessment Renal Failure, ? multifactorial likely Acute on Chronic CHF: Echo in Jun 2018; Moderate left ventricular enlargement. Mid to distal septal and apical akinesis. Ischemic cardiomyopathy cannot be excluded. Left ventricular ejection fraction estimated to be 35-40 %. h/o Coronary artery disease, status post coronary artery bypass graft surgery. h/o of asthma. h/o of CVA. no residual History of diabetes mellitus. Obese Plan optimize cardiac and pulmonary status monitor renal parameters BP and BS check Kidney ASTRID : Negative Urine studies per orders Subjective ROS Limited/Unobtainable: No Constitutional: Reports: malaise Objective Objective Last 24 Hour Vital Signs Date Time Temp Pulse Resp B/P (MAP) Pulse Ox O2 Delivery O2 Flow Rate FiO2 11/19/18 12:00 66 11/19/18 12:00 98.4 65 20 102/52 (69) 91 11/19/18 10:00 111/61 11/19/18 10:00 68 117/61 11/19/18 09:00 Room Air 11/19/18 08:00 72 11/19/18 08:00 97.3 68 20 111/61 (78) 93 11/19/18 04:00 98.1 70 20 131/71 (91) 100 11/19/18 04:00 59 11/19/18 00:00 69 11/19/18 00:00 97.9 70 20 102/59 (73) 93 11/18/18 21:00 Room Air 11/18/18 20:00 98.5 70 20 99/57 (71) 100 11/18/18 20:00 81 11/18/18 17:31 78 153/100 Intake and Output 11/18/18 11/19/18 19:00 07:00 # Voids 2 Laboratory Tests 11/18/18 22:10: Urine Eosinophils None seen, Urine Osmolality 726H, Urine Random Creatinine [ Pending], Urine Random Microalbumin [Pending], Urine Random Sodium 150H, Urine Microalbumin/Creatinine Ratio [Pending] 11/19/18 05:55: White Blood Count 7.6, Red Blood Count 5.47, Hemoglobin 15.6, Hematocrit 47.9, Mean Corpuscular Volume 88, Mean Corpuscular Hemoglobin 28.5, Mean Corpuscular Hemoglobin Concent 32.6, Red Cell Distribution Width 13.7, Platelet Count 209, Mean Platelet Volume 7.1, Neutrophils (%) (Auto) 65.6, Lymphocytes (%) (Auto) 22.4, Monocytes (%) (Auto) 7.8, Eosinophils (%) (Auto) 3.5H, Basophils (%) (Auto ) 0.7, Erythrocyte Sedimentation Rate 36H, Sodium Level 142, Potassium Level 4.6 , Chloride Level 105, Carbon Dioxide Level 31, Anion Gap 6, Blood Urea Nitrogen 20H, Creatinine 1.4H, Estimat Glomerular Filtration Rate , Glucose Level 175H, Hemoglobin A1c 7.6H, Uric Acid 6.8, Calcium Level 9.2, Phosphorus Level 2.8, Magnesium Level 2.6H, Total Bilirubin 0.5, Aspartate Amino Transf (AST/SGOT) 15 , Alanine Aminotransferase (ALT/SGPT) 19, Alkaline Phosphatase 68, Troponin I 0.097H, C-Reactive Protein, Quantitative 2.6H, Pro-B-Type Natriuretic Peptide 507H, Total Protein 7.4, Albumin 3.1L, Globulin 4.3, Albumin/Globulin Ratio 0.7L , Triglycerides Level 200H, Cholesterol Level 226H, LDL Cholesterol 161H, HDL Cholesterol 29L, Cholesterol/HDL Ratio 7.8H, Amylase Level 37, Lipase 98, Thyroid Stimulating Hormone (TSH) 2.215 Height (Feet): 6 Height (Inches): 0.00 Weight (Pounds): 226 General Appearance: no apparent distress Cardiovascular: normal rate Respiratory/Chest: decreased breath sounds Abdomen: distended, other - obese Objective no change Hector Roper MD Nov 19, 2018 16:40
[2018-11-19] MEDS ORDERED: DIAZEPAM10 MG ORAL (17:54)
[2018-11-19] MEDS ORDERED: VENTOLIN HFA18 GM INH (17:59)
--- NOTE | 2018-11-19 19:39 | NUR ---
HAND-OFF: Report given to EVERARDO Bustos.
--- NOTE | 2018-11-19 19:50 | NUR ---
NURSE NOTES: Received pt from EVERARDO Johnson. Pt asleep. Bed in lowest position. Call light within reach. Will continue to monitor.
[2018-11-19 20:00] VITALS: BP 137/107
[2018-11-20] VITALS: BP 130/100
[2018-11-20 04:00] VITALS: BP 89/61
[2018-11-20] MEDS: sitaGLIPtin 50mg tab ORAL SCH (06:26)
[2018-11-20] MEDS: NovoLOG Insulin Flexpen SUBQ SCH ×4 (06:28→21:09)
[2018-11-20 07:30] LABS: BASOPHILS % (AUTO) 1.2 % (0.0-2.0); EOSINOPHILS % (AUTO) 4.3 % (0.0-3.0); HEMATOCRIT 47.4 % (42.0-52.0); HEMOGLOBIN 15.7 G/DL (14.2-18.0); LYMPHOCYTES % (AUTO) 31.9 % (20.0-45.0); MEAN CORPUSCULAR VOLUME 85 FL (80-99); MONOCYTES % (AUTO) 7.5 % (1.0-10.0); NEUTROPHILS % (AUTO) 55.2 % (45.0-75.0); PLATELET COUNT 214 K/UL (150-450); RED BLOOD COUNT 5.58 M/UL (4.70-6.10); RED CELL DISTRIBUTION WIDTH 13.2 % (11.6-14.8); WHITE BLOOD COUNT 7.1 K/UL (4.8-10.8)
[2018-11-20 07:40] LABS: PHOSPHORUS 3.4 MG/DL (2.5-4.9)
--- NOTE | 2018-11-20 07:47 | NUR ---
HAND-OFF: Report given to EVERARDO Cabrera. Pt stable.
--- NOTE | 2018-11-20 07:48 | NUR ---
NURSE NOTES: Report received from Juli MCGEE. Pt is sitting on chair, eating breakfast. No signs of acute distress noted. Breathing is even and unlabored in room air. Bed in lowest position and locked. IV site in RAC 20G SL intact asymptomatic. Call light and side table placed within reach. Will continue to monitor.
[2018-11-20 07:53] LABS: ALANINE AMINOTRANSFERASE 21 U/L (12-78); ALBUMIN 3.3 G/DL (3.4-5.0); ALBUMIN/GLOBULIN RATIO 0.8 (1.0-2.7); ALKALINE PHOSPHATASE 69 U/L (46-116); ANION GAP 9 mmol/L (5-15); ASPARTATE AMINO TRANSFERASE 14 U/L (15-37); BILIRUBIN,TOTAL 0.6 MG/DL (0.2-1.0); BLOOD UREA NITROGEN 21 mg/dL (7-18); CALCIUM 9.4 MG/DL (8.5-10.1); CARBON DIOXIDE 28 MMOL/L (21-32); CHLORIDE 103 MMOL/L (98-107); CREATININE 1.3 MG/DL (0.55-1.30); POTASSIUM 4.5 MMOL/L (3.5-5.1); SODIUM 140 MMOL/L (136-145)
[2018-11-20 08:00] VITALS: BP 146/95
[2018-11-20] MEDS: Lisinopril 10mg tab ORAL SCH (08:41)
[2018-11-20] MEDS: Theophylline ER 100mg ORAL SCH ×2 (08:41→21:05)
[2018-11-20] MEDS: Docusate 100mg cap ORAL SCH ×3 (08:41→17:05)
[2018-11-20] MEDS: Heparin 5000 units/ml inj SUBQ SCH ×2 (08:42→21:09)
[2018-11-20] MEDS: Carvedilol 25mg Tab ORAL SCH ×2 (08:42→17:05)
--- NOTE | 2018-11-20 09:39 | GI Progress Note ---
Assessment/Plan Problems: (1) Elevated troponin ICD Codes: R74.8 - Abnormal levels of other serum enzymes SNOMED: 252572631, 585674483, 340189644 (2) Large hiatal hernia ICD Codes: K44.9 - Diaphragmatic hernia without obstruction or gangrene SNOMED: 72175855 (3) Barretts esophagus ICD Codes: K22.70 - Barretts esophagus SNOMED: 929153670 (4) Pancreatitis ICD Codes: K85.9 - Pancreatitis SNOMED: 75624992 (5) Diabetes ICD Codes: E11.9 - Type 2 diabetes mellitus without complications SNOMED: 14347982 Status: unchanged Status Narrative Discussed with Dr. Hinds. Assessment/Plan Abdominal pelvic CT reviewed did not show any obvious small bowel obstruction Follow-up cardiology recommendations given elevated troponin levels Advance diet Bowel regimen, continue MiraLAX plus Colace Magnesium citrate as needed PPI for Villalobos's esophagus PRN transfusions Zofran as needed Follow labs No plans for GI procedures at this time The patient was seen and examined at bedside and all new and available data was reviewed in the patients chart. I agree with the above findings, impression and plan. (Patient seen earlier today. Signature stamp does not reflect patient encounter time.). - Charles Hinds MD Subjective Gastrointestinal/Abdominal: Reports: no symptoms Objective Last 24 Hour Vital Signs Date Time Temp Pulse Resp B/P (MAP) Pulse Ox O2 Delivery O2 Flow Rate FiO2 11/20/18 08:42 146 95/68 11/20/18 08:41 130/87 11/20/18 08:00 97.4 68 20 146/95 (112) 97 11/20/18 04:00 71 11/20/18 04:00 98.2 67 19 89/61 (70) 93 11/20/18 00:00 61 11/20/18 00:00 97.5 68 18 130/100 (110) 93 11/19/18 21:00 Room Air 11/19/18 20:00 97.6 66 18 137/107 (117) 92 11/19/18 17:11 64 111/72 11/19/18 16:00 65 11/19/18 16:00 97.4 64 20 111/72 (85) 91 11/19/18 12:00 66 11/19/18 12:00 98.4 65 20 102/52 (69) 91 11/19/18 10:00 111/61 11/19/18 10:00 68 117/61 Intake and Output 11/19/18 11/20/18 18:59 06:59 Intake Total 1170 ml Balance 1170 ml Intake Oral 1170 ml # Voids 7 Laboratory Tests Test 11/20/18 06:45 White Blood Count 7.1 K/UL (4.8-10.8) Red Blood Count 5.58 M/UL (4.70-6.10) Hemoglobin 15.7 G/DL (14.2-18.0) Hematocrit 47.4 % (42.0-52.0) Mean Corpuscular Volume 85 FL (80-99) Mean Corpuscular Hemoglobin 28.2 PG (27.0-31.0) Mean Corpuscular Hemoglobin Concent 33.2 G/DL (32.0-36.0) Red Cell Distribution Width 13.2 % (11.6-14.8) Platelet Count 214 K/UL (150-450) Mean Platelet Volume 7.4 FL (6.5-10.1) Neutrophils (%) (Auto) 55.2 % (45.0-75.0) Lymphocytes (%) (Auto) 31.9 % (20.0-45.0) Monocytes (%) (Auto) 7.5 % (1.0-10.0) Eosinophils (%) (Auto) 4.3 % (0.0-3.0) H Basophils (%) (Auto) 1.2 % (0.0-2.0) Sodium Level 140 MMOL/L (136-145) Potassium Level 4.5 MMOL/L (3.5-5.1) Chloride Level 103 MMOL/L (98-107) Carbon Dioxide Level 28 MMOL/L (21-32) Anion Gap 9 mmol/L (5-15) Blood Urea Nitrogen 21 mg/dL (7-18) H Creatinine 1.3 MG/DL (0.55-1.30) Estimat Glomerular Filtration Rate mL/min (>60) Glucose Level 210 MG/DL (74-106) H Calcium Level 9.4 MG/DL (8.5-10.1) Phosphorus Level 3.4 MG/DL (2.5-4.9) Magnesium Level 2.4 MG/DL (1.8-2.4) Total Bilirubin 0.6 MG/DL (0.2-1.0) Aspartate Amino Transf (AST/SGOT) 14 U/L (15-37) L Alanine Aminotransferase (ALT/SGPT) 21 U/L (12-78) Alkaline Phosphatase 69 U/L (46-116) Pro-B-Type Natriuretic Peptide 344 pg/mL (0-125) H Total Protein 7.7 G/DL (6.4-8.2) Albumin 3.3 G/DL (3.4-5.0) L Globulin 4.4 g/dL Albumin/Globulin Ratio 0.8 (1.0-2.7) L Height (Feet): 6 Height (Inches): 0.00 Weight (Pounds): 248 General Appearance: no apparent distress Cardiovascular: normal rate Respiratory/Chest: normal breath sounds, no respiratory distress Abdominal Exam: normal bowel sounds, non tender, soft, GT site Extremities: normal range of motion, non-tender Pao Couch NP Nov 20, 2018 09:39
[2018-11-20 12:00] VITALS: BP 105/55
--- NOTE | 2018-11-20 13:00 | Nephrology Progress Note ---
Assessment/Plan Problem List: (1) Renal failure (ARF), acute on chronic (2) EF 35% (3) Diabetes (4) Elevated troponin Assessment Renal Failure, ? multifactorial likely Acute on Chronic CHF: Echo in Jun 2018; Moderate left ventricular enlargement. Mid to distal septal and apical akinesis. Ischemic cardiomyopathy cannot be excluded. Left ventricular ejection fraction estimated to be 35-40 %. h/o Coronary artery disease, status post coronary artery bypass graft surgery. h/o of asthma. h/o of CVA. no residual History of diabetes mellitus. Obese Plan optimize cardiac and pulmonary status monitor renal parameters BP and BS check Kidney ASTRID : Negative Urine studies per orders Subjective ROS Limited/Unobtainable: No Constitutional: Reports: malaise, weakness Objective Objective Last 24 Hour Vital Signs Date Time Temp Pulse Resp B/P (MAP) Pulse Ox O2 Delivery O2 Flow Rate FiO2 11/20/18 12:00 97.7 64 18 105/55 (72) 98 11/20/18 09:00 Room Air 11/20/18 08:42 146 95/68 11/20/18 08:41 130/87 11/20/18 08:00 97.4 68 20 146/95 (112) 97 11/20/18 08:00 72 11/20/18 04:00 71 11/20/18 04:00 98.2 67 19 89/61 (70) 93 11/20/18 00:00 61 11/20/18 00:00 97.5 68 18 130/100 (110) 93 11/19/18 21:00 Room Air 11/19/18 20:00 97.6 66 18 137/107 (117) 92 11/19/18 17:11 64 111/72 11/19/18 16:00 65 11/19/18 16:00 97.4 64 20 111/72 (85) 91 Intake and Output 11/19/18 11/20/18 18:59 06:59 Intake Total 1170 ml Balance 1170 ml Intake Oral 1170 ml # Voids 7 Laboratory Tests 11/20/18 06:45: White Blood Count 7.1, Red Blood Count 5.58, Hemoglobin 15.7, Hematocrit 47.4, Mean Corpuscular Volume 85, Mean Corpuscular Hemoglobin 28.2, Mean Corpuscular Hemoglobin Concent 33.2, Red Cell Distribution Width 13.2, Platelet Count 214, Mean Platelet Volume 7.4, Neutrophils (%) (Auto) 55.2, Lymphocytes (%) (Auto) 31.9, Monocytes (%) (Auto) 7.5, Eosinophils (%) (Auto) 4.3H, Basophils (%) (Auto ) 1.2, Sodium Level 140, Potassium Level 4.5, Chloride Level 103, Carbon Dioxide Level 28, Anion Gap 9, Blood Urea Nitrogen 21H, Creatinine 1.3, Estimat Glomerular Filtration Rate , Glucose Level 210H, Calcium Level 9.4, Phosphorus Level 3.4, Magnesium Level 2.4, Total Bilirubin 0.6, Aspartate Amino Transf (AST /SGOT) 14L, Alanine Aminotransferase (ALT/SGPT) 21, Alkaline Phosphatase 69, Pro -B-Type Natriuretic Peptide 344H, Total Protein 7.7, Albumin 3.3L, Globulin 4.4 , Albumin/Globulin Ratio 0.8L Height (Feet): 6 Height (Inches): 0.00 Weight (Pounds): 248 General Appearance: no apparent distress Cardiovascular: normal rate Respiratory/Chest: decreased breath sounds Abdomen: distended, other - obese Objective no change Hector Roper MD Nov 20, 2018 13:00
--- NOTE | 2018-11-20 13:19 | Pulmonology Progress Note ---
Assessment/Plan Problems: (1) Acute respiratory failure (2) ATN (acute tubular necrosis) (3) COPD (chronic obstructive pulmonary disease) (4) EF 35% (5) Diabetes (6) History of ETOH abuse (7) HTN (hypertension) (8) CAD (coronary artery disease) (9) History of coronary artery bypass graft Assessment/Plan respiratory treatment prn check sputum still pending titrate fio2 to sat of 92% titrate cardiac meds by cardiology antitussives GI evaluation check echo. previously pt had echos done showing EF of 35 and later on 50%, Echo yesterday showed EF of 30% dvt prophylaxis. symptomatic treatment. Subjective ROS Limited/Unobtainable: No Constitutional: Reports: no symptoms HEENT: Repors: no symptoms Respiratory: Reports: no symptoms Allergies: Coded Allergies: Dairy (Verified Allergy, Severe, Swollen lips, 09/29/15) GRAPEFRUIT (Verified Allergy, Intermediate, Rash, itching, 09/29/15) ORANGE JUICE (Verified Allergy, Intermediate, Itching, 09/29/15) POLLEN EXTRACTS (Verified Allergy, Intermediate, itching, sneezing, watery eyes, 09/29/15) Objective Last 24 Hour Vital Signs Date Time Temp Pulse Resp B/P (MAP) Pulse Ox O2 Delivery O2 Flow Rate FiO2 11/20/18 12:00 97.7 64 18 105/55 (72) 98 11/20/18 09:00 Room Air 11/20/18 08:42 146 95/68 11/20/18 08:41 130/87 11/20/18 08:00 97.4 68 20 146/95 (112) 97 11/20/18 08:00 72 11/20/18 04:00 71 11/20/18 04:00 98.2 67 19 89/61 (70) 93 11/20/18 00:00 61 11/20/18 00:00 97.5 68 18 130/100 (110) 93 11/19/18 21:00 Room Air 11/19/18 20:00 97.6 66 18 137/107 (117) 92 11/19/18 17:11 64 111/72 11/19/18 16:00 65 11/19/18 16:00 97.4 64 20 111/72 (85) 91 Intake and Output 11/19/18 11/20/18 18:59 06:59 Intake Total 1170 ml Balance 1170 ml Intake Oral 1170 ml # Voids 7 General Appearance: WD/WN HEENT: normocephalic, atraumatic Respiratory/Chest: chest wall non-tender, lungs clear Cardiovascular: normal peripheral pulses, normal rate, regularly irregular Abdomen: normal bowel sounds, soft, non tender, no organomegaly Genitourinary: normal external genitalia Neurologic/Psychiatric: parole hearing officer II-XII grossly normal, abnormal gait Microbiology Date/Time Source Procedure Growth Status 11/19/18 06:00 Sputum Gram Stain Pending Resulted 11/19/18 06:00 Sputum Sputum Culture - Preliminary NORMAL UPPER RESPIRATORY DANIEL AT 24 ... Resulted Laboratory Tests 11/20/18 06:45: White Blood Count 7.1, Red Blood Count 5.58, Hemoglobin 15.7, Hematocrit 47.4, Mean Corpuscular Volume 85, Mean Corpuscular Hemoglobin 28.2, Mean Corpuscular Hemoglobin Concent 33.2, Red Cell Distribution Width 13.2, Platelet Count 214, Mean Platelet Volume 7.4, Neutrophils (%) (Auto) 55.2, Lymphocytes (%) (Auto) 31.9, Monocytes (%) (Auto) 7.5, Eosinophils (%) (Auto) 4.3H, Basophils (%) (Auto ) 1.2, Sodium Level 140, Potassium Level 4.5, Chloride Level 103, Carbon Dioxide Level 28, Anion Gap 9, Blood Urea Nitrogen 21H, Creatinine 1.3, Estimat Glomerular Filtration Rate , Glucose Level 210H, Calcium Level 9.4, Phosphorus Level 3.4, Magnesium Level 2.4, Total Bilirubin 0.6, Aspartate Amino Transf (AST /SGOT) 14L, Alanine Aminotransferase (ALT/SGPT) 21, Alkaline Phosphatase 69, Pro -B-Type Natriuretic Peptide 344H, Total Protein 7.7, Albumin 3.3L, Globulin 4.4 , Albumin/Globulin Ratio 0.8L Current Medications Medications (Trade) Dose Ordered Sig/Marty Route PRN Reason Start Time Stop Time Status Last Admin Dose Admin Acetaminophen (Tylenol) 650 mg Q4H PRN ORAL Mild Pain/Temp > 100.5 11/18/18 12:30 12/18/18 12:29 Acetaminophen/ Hydrocodone Bitart ([place] 10/325) 1 tab Q4H PRN ORAL Moderate Pain (Pain Scale 4-6) 11/18/18 12:30 11/25/18 12:29 Atorvastatin Calcium (Lipitor) 10 mg BEDTIME ORAL 11/18/18 21:00 12/18/18 20:59 11/19/18 22:09 Carvedilol (Coreg) 25 mg BID ORAL 11/18/18 18:00 12/18/18 17:59 11/20/18 08:42 Dextrose (Dextrose 50%) 25 ml Q30M PRN IV Hypoglycemia 11/18/18 11:30 12/18/18 11:29 Dextrose (Dextrose 50%) 50 ml Q30M PRN IV Hypoglycemia 11/18/18 11:30 12/18/18 11:29 Docusate Sodium (Colace) 100 mg TID ORAL 11/18/18 18:00 12/18/18 17:59 11/20/18 12:11 Furosemide (Lasix) 40 mg DAILY IV 11/19/18 09:00 12/19/18 08:59 11/20/18 08:41 Heparin Sodium (Porcine) (Heparin 5000 units/ml) 5,000 units EVERY 12 HOURS SUBQ 11/18/18 21:00 12/18/18 20:59 11/19/18 10:02 Insulin Aspart (NovoLOG) BEFORE MEALS AND HS SUBQ 11/18/18 12:00 12/18/18 11:59 11/20/18 12:15 Lisinopril (Zestril) 10 mg DAILY ORAL 11/19/18 09:00 12/19/18 08:59 11/20/18 08:41 Lorazepam (Ativan 2mg/ml 1ml) 0.5 mg Q4H PRN IV For Anxiety 11/18/18 11:30 11/25/18 11:29 Morphine Sulfate (Morphine Sulfate) 1 mg Q4H PRN IVP Severe Pain (Pain Scale 7-10) 11/18/18 12:30 11/25/18 12:29 Ondansetron HCl (Zofran) 4 mg Q6H PRN IVP Nausea & Vomiting 11/18/18 11:30 12/18/18 11:29 Pantoprazole (Protonix) 40 mg DAILY ORAL 11/19/18 09:00 12/19/18 08:59 11/20/18 08:42 Polyethylene Glycol (Miralax) 17 gm HSPRN PRN ORAL Constipation 11/18/18 21:00 12/18/18 20:59 Promethazine HCl/ Codeine (Phenergan with Codeine) 5 ml Q4H PRN ORAL For Cough 11/18/18 11:30 12/18/18 11:29 11/18/18 18:21 Sitagliptin Phosphate (Januvia) 50 mg ACBREAKFAST ORAL 11/19/18 06:30 12/19/18 06:29 11/20/18 06:26 Theophylline (Navjot-Dur) 100 mg EVERY 12 HOURS ORAL 11/18/18 21:00 12/18/18 20:59 11/20/18 08:41 Zolpidem Tartrate (Ambien) 5 mg HSPRN PRN ORAL Insomnia 11/18/18 21:00 11/25/18 20:59 Zaheer Hidalgo MD Nov 20, 2018 13:19
--- NOTE | 2018-11-20 13:40 | NUR ---
CASE MANAGEMENT:REVIEW 73 YR OLD MALE PRESENTED TO ER CC: STOMACH BLOATED AND SOB SI: ACUTE RENAL FAILURE. CIRRHOSIS. ELEVATED TROPONIN. CHF 98.4 85 18 145/82 92% ON RA BUN+24 CR+1.7 TROPONIN(+) 0.180 IS: ASA PO MAG CITRATE PO CHEST XRAY CT ABD/PELVIS : TELEMETRY STATUS 11/20/18 SI: CHF. ELEVATED TROPONIN 97.7 64 18 105/55 98% ON RA IS: LISINOPRIL PO QD IV LASIX QD HEPARIN SQ Q12 COREG PO BID REYMUNDO-DUR PO Q12 : TELEMETRY STATUS
--- NOTE | 2018-11-20 15:19 | General Progress Note ---
Assessment/Plan Problem List: (1) CHF exacerbation ICD Codes: I50.9 - Heart failure, unspecified SNOMED: 253004244, 89796549714385, 446030534 (2) HTN (hypertension) ICD Codes: I10 - HTN (hypertension) SNOMED: 28618206 (3) ATN (acute tubular necrosis) ICD Codes: N17.0 - Acute kidney failure with tubular necrosis SNOMED: 01936647 (4) Diabetes ICD Codes: E11.9 - Type 2 diabetes mellitus without complications SNOMED: 51211946 (5) COPD (chronic obstructive pulmonary disease) ICD Codes: J44.9 - COPD (chronic obstructive pulmonary disease) SNOMED: 43312544 Status: stable, progressing Assessment/Plan: pt diet bp control neph f/u cbc bmp am dc plan w hh if clear Subjective Constitutional: Reports: weakness Allergies: Coded Allergies: Dairy (Verified Allergy, Severe, Swollen lips, 09/29/15) GRAPEFRUIT (Verified Allergy, Intermediate, Rash, itching, 09/29/15) ORANGE JUICE (Verified Allergy, Intermediate, Itching, 09/29/15) POLLEN EXTRACTS (Verified Allergy, Intermediate, itching, sneezing, watery eyes, 09/29/15) All Systems: reviewed and negative except above Subjective sleepy calm Objective Last 24 Hour Vital Signs Date Time Temp Pulse Resp B/P (MAP) Pulse Ox O2 Delivery O2 Flow Rate FiO2 11/20/18 12:00 97.7 64 18 105/55 (72) 98 11/20/18 12:00 61 11/20/18 09:00 Room Air 11/20/18 08:42 146 95/68 11/20/18 08:41 130/87 11/20/18 08:00 97.4 68 20 146/95 (112) 97 11/20/18 08:00 72 11/20/18 04:00 71 11/20/18 04:00 98.2 67 19 89/61 (70) 93 11/20/18 00:00 61 11/20/18 00:00 97.5 68 18 130/100 (110) 93 11/19/18 21:00 Room Air 11/19/18 20:00 97.6 66 18 137/107 (117) 92 11/19/18 17:11 64 111/72 11/19/18 16:00 65 11/19/18 16:00 97.4 64 20 111/72 (85) 91 Intake and Output 11/19/18 11/20/18 19:00 07:00 Intake Total 1170 ml Balance 1170 ml Intake Oral 1170 ml # Voids 7 Laboratory Tests 11/20/18 06:45: White Blood Count 7.1, Red Blood Count 5.58, Hemoglobin 15.7, Hematocrit 47.4, Mean Corpuscular Volume 85, Mean Corpuscular Hemoglobin 28.2, Mean Corpuscular Hemoglobin Concent 33.2, Red Cell Distribution Width 13.2, Platelet Count 214, Mean Platelet Volume 7.4, Neutrophils (%) (Auto) 55.2, Lymphocytes (%) (Auto) 31.9, Monocytes (%) (Auto) 7.5, Eosinophils (%) (Auto) 4.3H, Basophils (%) (Auto ) 1.2, Sodium Level 140, Potassium Level 4.5, Chloride Level 103, Carbon Dioxide Level 28, Anion Gap 9, Blood Urea Nitrogen 21H, Creatinine 1.3, Estimat Glomerular Filtration Rate , Glucose Level 210H, Calcium Level 9.4, Phosphorus Level 3.4, Magnesium Level 2.4, Total Bilirubin 0.6, Aspartate Amino Transf (AST /SGOT) 14L, Alanine Aminotransferase (ALT/SGPT) 21, Alkaline Phosphatase 69, Pro -B-Type Natriuretic Peptide 344H, Total Protein 7.7, Albumin 3.3L, Globulin 4.4 , Albumin/Globulin Ratio 0.8L Height (Feet): 6 Height (Inches): 0.00 Weight (Pounds): 248 General Appearance: lethargic EENT: normal ENT inspection Neck: normal alignment Cardiovascular: normal peripheral pulses, normal rate, regular rhythm Respiratory/Chest: chest wall non-tender, lungs clear, normal breath sounds Abdomen: normal bowel sounds, non tender, soft Extremities: normal inspection Edema: no edema noted Arm (L), no edema noted Arm (R), no edema noted Leg (L), no edema noted Leg (R), no edema noted Pedal (L), no edema noted Pedal (R), no edema noted Generalized Neurologic: motor weakness Skin: normal pigmentation, warm/dry Delano Walters DO Nov 20, 2018 15:19
[2018-11-20 16:00] VITALS: BP 102/53
--- NOTE | 2018-11-20 16:40 | Cardiac Electrophysiology PN ---
Assessment/Plan Assessment/Plan 1. Congestive heart failure due to acute on chronic systolic dysfunction. Echocardiogram showed ejection fraction of 30%. The patient has history of ischemic cardiomyopathy and prior CABG. Continue Coreg 25 bid, lisinopril 10 mg daily and Lasix 40 IV daily Likely will need ICD. QRSD 100 ms and would not meet criteria for BIV pacing 2. Elevated troponin. Hx of CABG. Continue Coreg,aspirin and Lipitor 3. Mild renal failure, creatinine 1.4 today. 4. History of alcohol abuse and Villalobos's esophagus. 5. Diabetes. On metformin. 6. 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 GISELA RN Subjective Subjective Feeling better with diuresis. No CP. Objective Last 24 Hour Vital Signs Date Time Temp Pulse Resp B/P (MAP) Pulse Ox O2 Delivery O2 Flow Rate FiO2 11/20/18 16:00 97.5 105 20 102/53 (69) 97 11/20/18 12:00 97.7 64 18 105/55 (72) 98 11/20/18 12:00 61 11/20/18 09:00 Room Air 11/20/18 08:42 146 95/68 11/20/18 08:41 130/87 11/20/18 08:00 97.4 68 20 146/95 (112) 97 11/20/18 08:00 72 11/20/18 04:00 71 11/20/18 04:00 98.2 67 19 89/61 (70) 93 11/20/18 00:00 61 11/20/18 00:00 97.5 68 18 130/100 (110) 93 11/19/18 21:00 Room Air 11/19/18 20:00 97.6 66 18 137/107 (117) 92 11/19/18 17:11 64 111/72 Intake and Output 11/19/18 11/20/18 19:00 07:00 Intake Total 1170 ml Balance 1170 ml Intake Oral 1170 ml # Voids 7 Laboratory Tests Test 11/20/18 06:45 White Blood Count 7.1 K/UL (4.8-10.8) Red Blood Count 5.58 M/UL (4.70-6.10) Hemoglobin 15.7 G/DL (14.2-18.0) Hematocrit 47.4 % (42.0-52.0) Mean Corpuscular Volume 85 FL (80-99) Mean Corpuscular Hemoglobin 28.2 PG (27.0-31.0) Mean Corpuscular Hemoglobin Concent 33.2 G/DL (32.0-36.0) Red Cell Distribution Width 13.2 % (11.6-14.8) Platelet Count 214 K/UL (150-450) Mean Platelet Volume 7.4 FL (6.5-10.1) Neutrophils (%) (Auto) 55.2 % (45.0-75.0) Lymphocytes (%) (Auto) 31.9 % (20.0-45.0) Monocytes (%) (Auto) 7.5 % (1.0-10.0) Eosinophils (%) (Auto) 4.3 % (0.0-3.0) H Basophils (%) (Auto) 1.2 % (0.0-2.0) Sodium Level 140 MMOL/L (136-145) Potassium Level 4.5 MMOL/L (3.5-5.1) Chloride Level 103 MMOL/L (98-107) Carbon Dioxide Level 28 MMOL/L (21-32) Anion Gap 9 mmol/L (5-15) Blood Urea Nitrogen 21 mg/dL (7-18) H Creatinine 1.3 MG/DL (0.55-1.30) Estimat Glomerular Filtration Rate mL/min (>60) Glucose Level 210 MG/DL (74-106) H Calcium Level 9.4 MG/DL (8.5-10.1) Phosphorus Level 3.4 MG/DL (2.5-4.9) Magnesium Level 2.4 MG/DL (1.8-2.4) Total Bilirubin 0.6 MG/DL (0.2-1.0) Aspartate Amino Transf (AST/SGOT) 14 U/L (15-37) L Alanine Aminotransferase (ALT/SGPT) 21 U/L (12-78) Alkaline Phosphatase 69 U/L (46-116) Pro-B-Type Natriuretic Peptide 344 pg/mL (0-125) H Total Protein 7.7 G/DL (6.4-8.2) Albumin 3.3 G/DL (3.4-5.0) L Globulin 4.4 g/dL Albumin/Globulin Ratio 0.8 (1.0-2.7) L Microbiology Date/Time Source Procedure Growth Status 11/19/18 06:00 Sputum Gram Stain - Final Resulted 11/19/18 06:00 Sputum Sputum Culture - Preliminary NORMAL UPPER RESPIRATORY DANIEL AT 24 ... Resulted Objective HEAD AND NECK: Mild JVD. LUNGS: Decreased breath sounds. CARDIOVASCULAR: Shows regular S1 and S2 with no gallop or murmur. ABDOMEN: Soft. EXTREMITIES: A 1+ pitting edema. Deni Lombardo MD Nov 20, 2018 16:40
--- NOTE | 2018-11-20 19:20 | NUR ---
NURSE NOTES: Received pt and report from EVERARDO Carter. Observed pt asleep in bed with both eyes closed. oracle fusion middleware developer is in placed, IV site intact, asymptomatic and patent. Bed is in the lowest position and locked, call light within reach. No signs/symptoms of acute distress noted at this time. Will continue plan of care.
--- NOTE | 2018-11-20 19:32 | NUR ---
HAND-OFF: Report given to Haris RN. Pt remains stable.
[2018-11-20 20:00] VITALS: BP 102/50
[2018-11-21] VITALS: BP 113/64
[2018-11-21 04:00] VITALS: BP 135/85
[2018-11-21] MEDS: sitaGLIPtin 50mg tab ORAL SCH (06:00)
[2018-11-21] MEDS: NovoLOG Insulin Flexpen SUBQ SCH ×2 (06:01→12:26)
--- NOTE | 2018-11-21 07:31 | NUR ---
HAND-OFF: Report given to EVERARDO Carter.
--- NOTE | 2018-11-21 07:33 | NUR ---
NURSE NOTES: Report given to Received report from Kemi MCGEE. Alert and oriented x3. Pt sitting in chair and eating breakfast. Pt denied pain at this time. No signs of distress noted. IV in R hand 20 SL patent and asymptomatic. Side railsx2 up for safety and bed locked. On room air. No SOB noted. Call light within east reach. Will continue to plan of care.
[2018-11-21 08:00] VITALS: BP 143/79
[2018-11-21 08:29] LABS: BASOPHILS % (AUTO) 1.2 % (0.0-2.0); EOSINOPHILS % (AUTO) 4.7 % (0.0-3.0); HEMATOCRIT 51.4 % (42.0-52.0); LYMPHOCYTES % (AUTO) 30.7 % (20.0-45.0); MEAN CORPUSCULAR VOLUME 86 FL (80-99); MONOCYTES % (AUTO) 7.9 % (1.0-10.0); NEUTROPHILS % (AUTO) 55.5 % (45.0-75.0); PLATELET COUNT 220 K/UL (150-450); RED BLOOD COUNT 5.96 M/UL (4.70-6.10); RED CELL DISTRIBUTION WIDTH 13.7 % (11.6-14.8)
[2018-11-21] MEDS: Heparin 5000 units/ml inj SUBQ SCH (09:00)
[2018-11-21] MEDS: Carvedilol 25mg Tab ORAL SCH (09:13)
[2018-11-21] MEDS: Theophylline ER 100mg ORAL SCH (09:13)
[2018-11-21] MEDS: Docusate 100mg cap ORAL SCH ×2 (09:13→12:24)
[2018-11-21] MEDS: Lisinopril 10mg tab ORAL SCH (09:13)
[2018-11-21 09:17] LABS: ANION GAP 12 mmol/L (5-15); BLOOD UREA NITROGEN 21 mg/dL (7-18); CALCIUM 9.9 MG/DL (8.5-10.1); CARBON DIOXIDE 28 MMOL/L (21-32); CHLORIDE 102 MMOL/L (98-107); CREATININE 1.4 MG/DL (0.55-1.30); POTASSIUM 4.1 MMOL/L (3.5-5.1); SODIUM 142 MMOL/L (136-145)
--- NOTE | 2018-11-21 09:55 | GI Progress Note ---
Assessment/Plan Problems: (1) Elevated troponin ICD Codes: R74.8 - Abnormal levels of other serum enzymes SNOMED: 146323974, 434690111, 926425085 (2) Large hiatal hernia ICD Codes: K44.9 - Diaphragmatic hernia without obstruction or gangrene SNOMED: 47734472 (3) Barretts esophagus ICD Codes: K22.70 - Barretts esophagus SNOMED: 462727061 (4) Pancreatitis ICD Codes: K85.9 - Pancreatitis SNOMED: 54383777 (5) Diabetes ICD Codes: E11.9 - Type 2 diabetes mellitus without complications SNOMED: 26657972 Status: stable Status Narrative Discussed with Dr. Hinds. Assessment/Plan Abdominal pelvic CT reviewed did not show any obvious small bowel obstruction Follow-up cardiology recommendations given elevated troponin levels Advance diet Bowel regimen, continue MiraLAX plus Colace Magnesium citrate as needed PPI for Villalobos's esophagus PRN transfusions Zofran as needed Follow labs No plans for GI procedures at this time The patient was seen and examined at bedside and all new and available data was reviewed in the patients chart. I agree with the above findings, impression and plan. (Patient seen earlier today. Signature stamp does not reflect patient encounter time.). - Charles Hinds MD Subjective Gastrointestinal/Abdominal: Reports: no symptoms Objective Last 24 Hour Vital Signs Date Time Temp Pulse Resp B/P (MAP) Pulse Ox O2 Delivery O2 Flow Rate FiO2 11/21/18 09:13 143/79 11/21/18 09:13 73 143/79 11/21/18 08:00 98.4 73 18 143/79 (100) 100 11/21/18 04:00 97.7 67 20 135/85 (102) 93 11/21/18 04:00 57 11/21/18 00:00 60 11/21/18 00:00 97.2 60 19 113/64 (80) 93 11/20/18 21:00 Room Air 11/20/18 20:00 97.6 60 20 102/50 (67) 96 11/20/18 20:00 63 11/20/18 17:05 105 102/53 11/20/18 16:00 97.5 105 20 102/53 (69) 97 11/20/18 16:00 65 11/20/18 12:00 97.7 64 18 105/55 (72) 98 11/20/18 12:00 61 Intake and Output 11/20/18 11/21/18 19:00 07:00 Intake Total 360 ml Balance 360 ml Intake Oral 360 ml # Voids 2 Laboratory Tests Test 11/21/18 07:15 White Blood Count 6.0 K/UL (4.8-10.8) Red Blood Count 5.96 M/UL (4.70-6.10) Hemoglobin 17.0 G/DL (14.2-18.0) Hematocrit 51.4 % (42.0-52.0) Mean Corpuscular Volume 86 FL (80-99) Mean Corpuscular Hemoglobin 28.4 PG (27.0-31.0) Mean Corpuscular Hemoglobin Concent 33.0 G/DL (32.0-36.0) Red Cell Distribution Width 13.7 % (11.6-14.8) Platelet Count 220 K/UL (150-450) Mean Platelet Volume 7.5 FL (6.5-10.1) Neutrophils (%) (Auto) 55.5 % (45.0-75.0) Lymphocytes (%) (Auto) 30.7 % (20.0-45.0) Monocytes (%) (Auto) 7.9 % (1.0-10.0) Eosinophils (%) (Auto) 4.7 % (0.0-3.0) H Basophils (%) (Auto) 1.2 % (0.0-2.0) Sodium Level 142 MMOL/L (136-145) Potassium Level 4.1 MMOL/L (3.5-5.1) Chloride Level 102 MMOL/L (98-107) Carbon Dioxide Level 28 MMOL/L (21-32) Anion Gap 12 mmol/L (5-15) Blood Urea Nitrogen 21 mg/dL (7-18) H Creatinine 1.4 MG/DL (0.55-1.30) H Estimat Glomerular Filtration Rate mL/min (>60) Glucose Level 138 MG/DL (74-106) H Calcium Level 9.9 MG/DL (8.5-10.1) Height (Feet): 6 Height (Inches): 0.00 Weight (Pounds): 248 General Appearance: WD/WN, no apparent distress, alert Cardiovascular: normal rate Respiratory/Chest: normal breath sounds, no respiratory distress Abdominal Exam: normal bowel sounds, non tender, soft Extremities: non-tender Pao Couch NP Nov 21, 2018 09:55
--- NOTE | 2018-11-21 11:55 | General Progress Note ---
Assessment/Plan Problem List: (1) CHF exacerbation ICD Codes: I50.9 - Heart failure, unspecified SNOMED: 446054408, 13302344914098, 446412869 (2) HTN (hypertension) ICD Codes: I10 - HTN (hypertension) SNOMED: 89248407 (3) ATN (acute tubular necrosis) ICD Codes: N17.0 - Acute kidney failure with tubular necrosis SNOMED: 13708315 (4) Diabetes ICD Codes: E11.9 - Type 2 diabetes mellitus without complications SNOMED: 43244007 (5) COPD (chronic obstructive pulmonary disease) ICD Codes: J44.9 - COPD (chronic obstructive pulmonary disease) SNOMED: 79704337 Status: stable, progressing Assessment/Plan: pt diet bp control neph f/u dc w hh if clear Subjective Constitutional: Reports: weakness Allergies: Coded Allergies: Dairy (Verified Allergy, Severe, Swollen lips, 09/29/15) GRAPEFRUIT (Verified Allergy, Intermediate, Rash, itching, 09/29/15) ORANGE JUICE (Verified Allergy, Intermediate, Itching, 09/29/15) POLLEN EXTRACTS (Verified Allergy, Intermediate, itching, sneezing, watery eyes, 09/29/15) All Systems: reviewed and negative except above Subjective sleepy calm Objective Last 24 Hour Vital Signs Date Time Temp Pulse Resp B/P (MAP) Pulse Ox O2 Delivery O2 Flow Rate FiO2 11/21/18 09:13 143/79 11/21/18 09:13 73 143/79 11/21/18 09:00 Room Air 11/21/18 08:00 98.4 73 18 143/79 (100) 100 11/21/18 08:00 72 11/21/18 04:00 97.7 67 20 135/85 (102) 93 11/21/18 04:00 57 11/21/18 00:00 60 11/21/18 00:00 97.2 60 19 113/64 (80) 93 11/20/18 21:00 Room Air 11/20/18 20:00 97.6 60 20 102/50 (67) 96 11/20/18 20:00 63 11/20/18 17:05 105 102/53 11/20/18 16:00 97.5 105 20 102/53 (69) 97 11/20/18 16:00 65 11/20/18 12:00 97.7 64 18 105/55 (72) 98 11/20/18 12:00 61 Intake and Output 11/20/18 11/21/18 18:59 06:59 Intake Total 360 ml Balance 360 ml Intake Oral 360 ml # Voids 2 Laboratory Tests 11/21/18 07:15: White Blood Count 6.0, Red Blood Count 5.96, Hemoglobin 17.0, Hematocrit 51.4, Mean Corpuscular Volume 86, Mean Corpuscular Hemoglobin 28.4, Mean Corpuscular Hemoglobin Concent 33.0, Red Cell Distribution Width 13.7, Platelet Count 220, Mean Platelet Volume 7.5, Neutrophils (%) (Auto) 55.5, Lymphocytes (%) (Auto) 30.7, Monocytes (%) (Auto) 7.9, Eosinophils (%) (Auto) 4.7H, Basophils (%) (Auto ) 1.2, Sodium Level 142, Potassium Level 4.1, Chloride Level 102, Carbon Dioxide Level 28, Anion Gap 12, Blood Urea Nitrogen 21H, Creatinine 1.4H, Estimat Glomerular Filtration Rate , Glucose Level 138H, Calcium Level 9.9 Height (Feet): 6 Height (Inches): 0.00 Weight (Pounds): 248 General Appearance: alert EENT: normal ENT inspection Neck: normal alignment Cardiovascular: normal peripheral pulses, normal rate, regular rhythm Respiratory/Chest: chest wall non-tender, lungs clear, normal breath sounds Abdomen: normal bowel sounds, non tender, soft Extremities: normal inspection Edema: no edema noted Arm (L), no edema noted Arm (R), no edema noted Leg (L), no edema noted Leg (R), no edema noted Pedal (L), no edema noted Pedal (R), no edema noted Generalized Neurologic: responsive, motor weakness Skin: normal pigmentation, warm/dry Delano Walters DO Nov 21, 2018 11:55
[2018-11-21 12:00] VITALS: BP 106/65
--- NOTE | 2018-11-21 12:00 | NUR ---
NURSE NOTES: Patient cleared by Darlene Maza, and Judson for discharge. Pending for discharge by Dr. Lombardo
--- NOTE | 2018-11-21 12:13 | Pulmonology Progress Note ---
Assessment/Plan Problems: (1) Acute respiratory failure (2) ATN (acute tubular necrosis) (3) COPD (chronic obstructive pulmonary disease) (4) EF 35% (5) Diabetes (6) History of ETOH abuse (7) HTN (hypertension) (8) CAD (coronary artery disease) (9) History of coronary artery bypass graft Assessment/Plan no new complains respiratory treatment prn check sputum still pending titrate fio2 to sat of 92% titrate cardiac meds by cardiology antitussives check echo. previously pt had echos done showing EF of 35 and later on 50%, Echo yesterday showed EF of 30% dvt prophylaxis. symptomatic treatment. dc planning Subjective ROS Limited/Unobtainable: No Constitutional: Reports: no symptoms HEENT: Repors: no symptoms Respiratory: Reports: no symptoms Allergies: Coded Allergies: Dairy (Verified Allergy, Severe, Swollen lips, 09/29/15) GRAPEFRUIT (Verified Allergy, Intermediate, Rash, itching, 09/29/15) ORANGE JUICE (Verified Allergy, Intermediate, Itching, 09/29/15) POLLEN EXTRACTS (Verified Allergy, Intermediate, itching, sneezing, watery eyes, 09/29/15) Objective Last 24 Hour Vital Signs Date Time Temp Pulse Resp B/P (MAP) Pulse Ox O2 Delivery O2 Flow Rate FiO2 11/21/18 12:00 98.2 66 20 106/65 (79) 98 11/21/18 09:13 143/79 11/21/18 09:13 73 143/79 11/21/18 09:00 Room Air 11/21/18 08:00 98.4 73 18 143/79 (100) 100 11/21/18 08:00 72 11/21/18 04:00 97.7 67 20 135/85 (102) 93 11/21/18 04:00 57 11/21/18 00:00 60 11/21/18 00:00 97.2 60 19 113/64 (80) 93 11/20/18 21:00 Room Air 11/20/18 20:00 97.6 60 20 102/50 (67) 96 11/20/18 20:00 63 11/20/18 17:05 105 102/53 11/20/18 16:00 97.5 105 20 102/53 (69) 97 11/20/18 16:00 65 Intake and Output 11/20/18 11/21/18 19:00 07:00 Intake Total 360 ml Balance 360 ml Intake Oral 360 ml # Voids 2 General Appearance: WD/WN HEENT: normocephalic, atraumatic Respiratory/Chest: chest wall non-tender, lungs clear Cardiovascular: normal peripheral pulses, normal rate, regularly irregular Abdomen: soft, non tender, no organomegaly Genitourinary: normal external genitalia Extremities: no clubbing Skin: no rash Microbiology Date/Time Source Procedure Growth Status 11/19/18 06:00 Sputum Gram Stain - Final Complete 11/19/18 06:00 Sputum Sputum Culture - Final NORMAL UPPER RESPIRATORY DANIEL PRESENT Complete Laboratory Tests 11/21/18 07:15: White Blood Count 6.0, Red Blood Count 5.96, Hemoglobin 17.0, Hematocrit 51.4, Mean Corpuscular Volume 86, Mean Corpuscular Hemoglobin 28.4, Mean Corpuscular Hemoglobin Concent 33.0, Red Cell Distribution Width 13.7, Platelet Count 220, Mean Platelet Volume 7.5, Neutrophils (%) (Auto) 55.5, Lymphocytes (%) (Auto) 30.7, Monocytes (%) (Auto) 7.9, Eosinophils (%) (Auto) 4.7H, Basophils (%) (Auto ) 1.2, Sodium Level 142, Potassium Level 4.1, Chloride Level 102, Carbon Dioxide Level 28, Anion Gap 12, Blood Urea Nitrogen 21H, Creatinine 1.4H, Estimat Glomerular Filtration Rate , Glucose Level 138H, Calcium Level 9.9 Current Medications Medications (Trade) Dose Ordered Sig/Marty Route PRN Reason Start Time Stop Time Status Last Admin Dose Admin Acetaminophen (Tylenol) 650 mg Q4H PRN ORAL Mild Pain/Temp > 100.5 11/18/18 12:30 12/18/18 12:29 Acetaminophen/ Hydrocodone Bitart ([place] 10/325) 1 tab Q4H PRN ORAL Moderate Pain (Pain Scale 4-6) 11/18/18 12:30 11/25/18 12:29 Atorvastatin Calcium (Lipitor) 10 mg BEDTIME ORAL 11/18/18 21:00 12/18/18 20:59 11/20/18 21:05 Carvedilol (Coreg) 25 mg BID ORAL 11/18/18 18:00 12/18/18 17:59 11/21/18 09:13 Dextrose (Dextrose 50%) 25 ml Q30M PRN IV Hypoglycemia 11/18/18 11:30 12/18/18 11:29 Dextrose (Dextrose 50%) 50 ml Q30M PRN IV Hypoglycemia 11/18/18 11:30 12/18/18 11:29 Docusate Sodium (Colace) 100 mg TID ORAL 11/18/18 18:00 12/18/18 17:59 11/21/18 09:13 Furosemide (Lasix) 40 mg DAILY IV 11/19/18 09:00 12/19/18 08:59 11/21/18 09:13 Heparin Sodium (Porcine) (Heparin 5000 units/ml) 5,000 units EVERY 12 HOURS SUBQ 11/18/18 21:00 12/18/18 20:59 11/20/18 21:09 Insulin Aspart (NovoLOG) BEFORE MEALS AND HS SUBQ 11/18/18 12:00 12/18/18 11:59 11/21/18 06:01 Lisinopril (Zestril) 10 mg DAILY ORAL 11/19/18 09:00 12/19/18 08:59 11/21/18 09:13 Lorazepam (Ativan 2mg/ml 1ml) 0.5 mg Q4H PRN IV For Anxiety 11/18/18 11:30 11/25/18 11:29 Morphine Sulfate (Morphine Sulfate) 1 mg Q4H PRN IVP Severe Pain (Pain Scale 7-10) 11/18/18 12:30 11/25/18 12:29 Ondansetron HCl (Zofran) 4 mg Q6H PRN IVP Nausea & Vomiting 11/18/18 11:30 12/18/18 11:29 Pantoprazole (Protonix) 40 mg DAILY ORAL 11/19/18 09:00 12/19/18 08:59 11/21/18 09:13 Polyethylene Glycol (Miralax) 17 gm HSPRN PRN ORAL Constipation 11/18/18 21:00 12/18/18 20:59 11/21/18 06:00 Promethazine HCl/ Codeine (Phenergan with Codeine) 5 ml Q4H PRN ORAL For Cough 11/18/18 11:30 12/18/18 11:29 11/18/18 18:21 Sitagliptin Phosphate (Januvia) 50 mg ACBREAKFAST ORAL 11/19/18 06:30 12/19/18 06:29 11/21/18 06:00 Theophylline (Navjot-Dur) 100 mg EVERY 12 HOURS ORAL 11/18/18 21:00 12/18/18 20:59 11/21/18 09:13 Zolpidem Tartrate (Ambien) 5 mg HSPRN PRN ORAL Insomnia 11/18/18 21:00 11/25/18 20:59 Zaheer Hidalgo MD Nov 21, 2018 12:13
--- NOTE | 2018-11-21 14:34 | NUR ---
DISCHARGE PLAN PER MD'S ORDER PATIENT HAS BEEN REFERRED TO [facility] T: [phone] F: [phone] AND [phone] Addendum: 11/21/18 at 1548 by FREDY MALDONADO LVN LVN RECEIVED CALL FROM STEFANIE WITH [facility] CONFIRMING RECEIPT OF CLINICALS THEY WILL GO OUT TO SEE PATIENT TOMORROW
--- NOTE | 2018-11-21 14:38 | Cardiac Electrophysiology PN ---
Assessment/Plan Assessment/Plan 1. Congestive heart failure due to acute on chronic systolic dysfunction. The patient has history of ischemic cardiomyopathy and prior CABG. Echocardiogram showed EF 30% . EF has been low since 06/2018. Echo 06/2018 and 08/2018 both showed EF 35% Continue Coreg 25 bid, lisinopril 10 mg daily and Lasix 40 IV daily SCheduled for ICD implantation [place] at 1 pm. QRSD 100 ms and would not meet criteria for BIV pacing 2. Elevated troponin. Hx of CABG. Continue Coreg,aspirin and Lipitor 3. Mild renal failure, creatinine 1.4 today. 4. History of alcohol abuse and Villalobos's esophagus. 5. Diabetes. On metformin. 6. 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 DW RN DW patient the risks and benefits and alternatives of ICD implantation and he agrees and would like to proceed Subjective Subjective Still on IV Lasix and diuresing. No CP or any arrhythmias. Objective Last 24 Hour Vital Signs Date Time Temp Pulse Resp B/P (MAP) Pulse Ox O2 Delivery O2 Flow Rate FiO2 11/21/18 12:00 98.2 66 20 106/65 (79) 98 11/21/18 09:13 143/79 11/21/18 09:13 73 143/79 11/21/18 09:00 Room Air 11/21/18 08:00 98.4 73 18 143/79 (100) 100 11/21/18 08:00 72 11/21/18 04:00 97.7 67 20 135/85 (102) 93 11/21/18 04:00 57 11/21/18 00:00 60 11/21/18 00:00 97.2 60 19 113/64 (80) 93 11/20/18 21:00 Room Air 11/20/18 20:00 97.6 60 20 102/50 (67) 96 11/20/18 20:00 63 11/20/18 17:05 105 102/53 11/20/18 16:00 97.5 105 20 102/53 (69) 97 11/20/18 16:00 65 Intake and Output 11/20/18 11/21/18 18:59 06:59 Intake Total 360 ml Balance 360 ml Intake Oral 360 ml # Voids 2 Laboratory Tests Test 11/21/18 07:15 White Blood Count 6.0 K/UL (4.8-10.8) Red Blood Count 5.96 M/UL (4.70-6.10) Hemoglobin 17.0 G/DL (14.2-18.0) Hematocrit 51.4 % (42.0-52.0) Mean Corpuscular Volume 86 FL (80-99) Mean Corpuscular Hemoglobin 28.4 PG (27.0-31.0) Mean Corpuscular Hemoglobin Concent 33.0 G/DL (32.0-36.0) Red Cell Distribution Width 13.7 % (11.6-14.8) Platelet Count 220 K/UL (150-450) Mean Platelet Volume 7.5 FL (6.5-10.1) Neutrophils (%) (Auto) 55.5 % (45.0-75.0) Lymphocytes (%) (Auto) 30.7 % (20.0-45.0) Monocytes (%) (Auto) 7.9 % (1.0-10.0) Eosinophils (%) (Auto) 4.7 % (0.0-3.0) H Basophils (%) (Auto) 1.2 % (0.0-2.0) Sodium Level 142 MMOL/L (136-145) Potassium Level 4.1 MMOL/L (3.5-5.1) Chloride Level 102 MMOL/L (98-107) Carbon Dioxide Level 28 MMOL/L (21-32) Anion Gap 12 mmol/L (5-15) Blood Urea Nitrogen 21 mg/dL (7-18) H Creatinine 1.4 MG/DL (0.55-1.30) H Estimat Glomerular Filtration Rate mL/min (>60) Glucose Level 138 MG/DL (74-106) H Calcium Level 9.9 MG/DL (8.5-10.1) Microbiology Date/Time Source Procedure Growth Status 11/19/18 06:00 Sputum Gram Stain - Final Complete 11/19/18 06:00 Sputum Sputum Culture - Final NORMAL UPPER RESPIRATORY DANIEL PRESENT Complete Objective HEAD AND NECK: Mild JVD. LUNGS: Decreased breath sounds. CARDIOVASCULAR: Shows regular S1 and S2 with no gallop or murmur. ABDOMEN: Soft. EXTREMITIES: A 1+ pitting edema. Deni Lombardo MD Nov 21, 2018 14:38
[2018-11-21] MEDS ORDERED: CARVEDILOL25 MG ORAL (15:37)
--- NOTE | 2018-11-21 16:00 | NUR ---
Discharge: Patient is being discharged from medical care. Awake, alert and oriented x3. After care instructions, including referral to community resources and [phone]were given. Dr. Lombardo and RN explained the risks of sudden heart attack when discharged home without ICD placement but the patient strongly insisted to leave the hospital today to take care of his pets at home. Patient verbalized understanding of After care instructions and the risks of discharging home without ICD placement; at this time patient requests Rx for Carvedilol and other discharge meds. Written Rx given to the patient and he prefers to dispense meds from his own pharmacy. Patient does not require any medical equipment. Patient signed patient consent in the medical record for patient destination upon discharge. All medical devices such as IV, monitoring manager and ID band were removed. Patient ambulated out to his car in parking lot with all personal belongings with steady gait and RN accompanied the patient to the parking lot.
--- NOTE | 2018-11-21 16:04 | Nephrology Progress Note ---
Assessment/Plan Problem List: (1) Renal failure (ARF), acute on chronic (2) EF 35% (3) Diabetes (4) Elevated troponin Assessment Renal Failure, ? multifactorial likely Acute on Chronic CHF: Echo in Jun 2018; Moderate left ventricular enlargement. Mid to distal septal and apical akinesis. Ischemic cardiomyopathy cannot be excluded. Left ventricular ejection fraction estimated to be 35-40 %. h/o Coronary artery disease, status post coronary artery bypass graft surgery. h/o of asthma. h/o of CVA. no residual History of diabetes mellitus. Obese Plan optimize cardiac and pulmonary status monitor renal parameters BP and BS check Kidney ASTRID : Negative Urine studies per orders ? DC planning Subjective ROS Limited/Unobtainable: No Constitutional: Reports: malaise Objective Objective Last 24 Hour Vital Signs Date Time Temp Pulse Resp B/P (MAP) Pulse Ox O2 Delivery O2 Flow Rate FiO2 11/21/18 12:00 98.2 66 20 106/65 (79) 98 11/21/18 12:00 69 11/21/18 09:13 143/79 11/21/18 09:13 73 143/79 11/21/18 09:00 Room Air 11/21/18 08:00 98.4 73 18 143/79 (100) 100 11/21/18 08:00 72 11/21/18 04:00 97.7 67 20 135/85 (102) 93 11/21/18 04:00 57 11/21/18 00:00 60 11/21/18 00:00 97.2 60 19 113/64 (80) 93 11/20/18 21:00 Room Air 11/20/18 20:00 97.6 60 20 102/50 (67) 96 11/20/18 20:00 63 11/20/18 17:05 105 102/53 Intake and Output 11/20/18 11/21/18 18:59 06:59 Intake Total 360 ml Balance 360 ml Intake Oral 360 ml # Voids 2 Current Medications Medications (Trade) Dose Ordered Sig/Marty Route PRN Reason Start Time Stop Time Status Last Admin Dose Admin Acetaminophen (Tylenol) 650 mg Q4H PRN ORAL Mild Pain/Temp > 100.5 11/18/18 12:30 12/18/18 12:29 Acetaminophen/ Hydrocodone Bitart ([place] 10/325) 1 tab Q4H PRN ORAL Moderate Pain (Pain Scale 4-6) 11/18/18 12:30 11/25/18 12:29 Atorvastatin Calcium (Lipitor) 10 mg BEDTIME ORAL 11/18/18 21:00 12/18/18 20:59 11/20/18 21:05 Carvedilol (Coreg) 25 mg BID ORAL 11/18/18 18:00 12/18/18 17:59 11/21/18 09:13 Dextrose (Dextrose 50%) 25 ml Q30M PRN IV Hypoglycemia 11/18/18 11:30 12/18/18 11:29 Dextrose (Dextrose 50%) 50 ml Q30M PRN IV Hypoglycemia 11/18/18 11:30 12/18/18 11:29 Docusate Sodium (Colace) 100 mg TID ORAL 11/18/18 18:00 12/18/18 17:59 11/21/18 12:24 Furosemide (Lasix) 40 mg DAILY IV 11/19/18 09:00 12/19/18 08:59 11/21/18 09:13 Heparin Sodium (Porcine) (Heparin 5000 units/ml) 5,000 units EVERY 12 HOURS SUBQ 11/18/18 21:00 12/18/18 20:59 11/20/18 21:09 Insulin Aspart (NovoLOG) BEFORE MEALS AND HS SUBQ 11/18/18 12:00 12/18/18 11:59 11/21/18 12:26 Lisinopril (Zestril) 10 mg DAILY ORAL 11/19/18 09:00 12/19/18 08:59 11/21/18 09:13 Lorazepam (Ativan 2mg/ml 1ml) 0.5 mg Q4H PRN IV For Anxiety 11/18/18 11:30 11/25/18 11:29 Morphine Sulfate (Morphine Sulfate) 1 mg Q4H PRN IVP Severe Pain (Pain Scale 7-10) 11/18/18 12:30 11/25/18 12:29 Ondansetron HCl (Zofran) 4 mg Q6H PRN IVP Nausea & Vomiting 11/18/18 11:30 12/18/18 11:29 Pantoprazole (Protonix) 40 mg DAILY ORAL 11/19/18 09:00 12/19/18 08:59 11/21/18 09:13 Polyethylene Glycol (Miralax) 17 gm HSPRN PRN ORAL Constipation 11/18/18 21:00 12/18/18 20:59 11/21/18 06:00 Promethazine HCl/ Codeine (Phenergan with Codeine) 5 ml Q4H PRN ORAL For Cough 11/18/18 11:30 12/18/18 11:29 11/18/18 18:21 Sitagliptin Phosphate (Januvia) 50 mg ACBREAKFAST ORAL 11/19/18 06:30 12/19/18 06:29 11/21/18 06:00 Theophylline (Navjot-Dur) 100 mg EVERY 12 HOURS ORAL 11/18/18 21:00 12/18/18 20:59 11/21/18 09:13 Zolpidem Tartrate (Ambien) 5 mg HSPRN PRN ORAL Insomnia 11/18/18 21:00 11/25/18 20:59 Laboratory Tests 11/21/18 07:15: White Blood Count 6.0, Red Blood Count 5.96, Hemoglobin 17.0, Hematocrit 51.4, Mean Corpuscular Volume 86, Mean Corpuscular Hemoglobin 28.4, Mean Corpuscular Hemoglobin Concent 33.0, Red Cell Distribution Width 13.7, Platelet Count 220, Mean Platelet Volume 7.5, Neutrophils (%) (Auto) 55.5, Lymphocytes (%) (Auto) 30.7, Monocytes (%) (Auto) 7.9, Eosinophils (%) (Auto) 4.7H, Basophils (%) (Auto ) 1.2, Sodium Level 142, Potassium Level 4.1, Chloride Level 102, Carbon Dioxide Level 28, Anion Gap 12, Blood Urea Nitrogen 21H, Creatinine 1.4H, Estimat Glomerular Filtration Rate , Glucose Level 138H, Calcium Level 9.9 Height (Feet): 6 Height (Inches): 0.00 Weight (Pounds): 248 General Appearance: no apparent distress Cardiovascular: normal rate Respiratory/Chest: decreased breath sounds Abdomen: distended Objective no change Hector Roper MD Nov 21, 2018 16:04
--- NOTE | 2018-11-22 10:01 | Discharge Summary ---
Discharge Summary Discharge Summary _ DATE OF ADMISSION: 11/18/2018 DATE OF DISCHARGE: 11/21/2018 DISCHARGED BY: Dr. Delano Walters CONSULTANTS: Dr. Hector Hinds [facility] COURSE: Patient is a 73-year-old male, who lives at home, presented to ED due to increased abdominal swelling and shortness of breath. Symptoms had been ongoing but had gotten progressively worse. Because of the abdominal distention , patient's breathing and walking was affected. 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 On evaluation at the ED, vital signs were stable. Blood work did not show any leukocytosis. Hemoglobin and hematocrit were stable. BUN was elevated to 24, creatinine to 1.7. Troponin was elevated to 0.18. proBNP 393. He was given aspirin. Urinalysis was unremarkable. EKG showed normal sinus rhythm with no acute changes. Chest x-ray showed cardiomegaly with median sternotomy sutures and evidence of prior CABG. Abdominal and pelvic CT showed prominent fluid- filled proximal small bowel loops, normal caliber distal small bowel without definite transition point. Patient was then admitted for evaluation of renal failure, CHF exacerbation and for evaluation of elevated troponin. He was admitted to telemetry. Cardiac enzymes were monitored. His echocardiogram showed ejection fraction of 30%. Patient has history of ischemic cardiomyopathy and prior bypass graft. Heart failure therapy was maximized. He was given Coreg, lisinopril, and Lasix. He was given Lipitor. Kidney function was monitored. Renal ultrasound showed normal echogenicity on both kidneys. Negative for hydronephrosis. Urine osmolality was 726. Urine random sodium 150. Urine eosinophils negative. Urine creatinine, microalbumin and ratio still pending. GI was consulted. Patient had abdominal distention. CT scan did not show any obvious small bowel obstruction. He was tolerating diet well. Patient complained of constipation. He was given bowel regimen. He was continued on proton pump inhibitors given history of Villalobos's esophagus. He was given respiratory treatments. Titrate FiO2 to saturation of 92%. He was given antitussives. He was saturating well on room air. Patient was recommended need for ICD placement. Patient would not meet criteria for be BIV pacing. Patient was scheduled for ICD implantation, but patient refused. Breakdown Man and RN explained the risks of sudden heart attack/sudden without ICD placement, but patient strongly insisted on leaving the hospital. Patient verbalized understanding of aftercare instructions and the risks of discharging home without ICD placement. Prescriptions were given to the patient. Patient was discharged home. 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 DISCHARGE MEDICATIONS: Refer to Discharge Medication List. DISCHARGE INSTRUCTIONS: Follow-up in a week. I have been assigned to complete a discharge summary on this account, I was not involved with the patient's management. DATE OF ADMISSION: 11/18/2018 DATE OF DISCHARGE: 11/21/2018 DISCHARGED BY: Dr. Delano Waletrs CONSULTANTS: Dr. Hector Hinds [facility]: Patient is a 73-year-old male, who lives at home, presented to ED due to increased abdominal swelling and shortness of breath. Symptoms had been ongoing but had gotten progressively worse. Because of the abdominal distention , patient's breathing and walking was affected. 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 On evaluation at the ED, vital signs were stable. Blood work did not show any leukocytosis. Hemoglobin and hematocrit were stable. BUN was elevated to 24, creatinine to 1.7. Troponin was elevated to 0.18. proBNP 393. He was given aspirin. Urinalysis was unremarkable. EKG showed normal sinus rhythm with no acute changes. Chest x-ray showed cardiomegaly with median sternotomy sutures and evidence of prior CABG. Abdominal and pelvic CT showed prominent fluid- filled proximal small bowel loops, normal caliber distal small bowel without definite transition point. Patient was then admitted for evaluation of renal failure, CHF exacerbation and for evaluation of elevated troponin. He was admitted to telemetry. Cardiac enzymes were monitored. His echocardiogram showed ejection fraction of 30%. Patient has history of ischemic cardiomyopathy and prior bypass graft. Heart failure therapy was maximized. He was given Coreg, lisinopril, and Lasix. He was given Lipitor. Kidney function was monitored. Renal ultrasound showed normal echogenicity on both kidneys. Negative for hydronephrosis. Urine osmolality was 726. Urine random sodium 150. Urine eosinophils negative. Urine creatinine, microalbumin and ratio still pending. GI was consulted. Patient had abdominal distention. CT scan did not show any obvious small bowel obstruction. He was tolerating diet well. Patient complained of constipation. He was given bowel regimen. He was continued on proton pump inhibitors given history of Villalobos's esophagus. He was given respiratory treatments. Titrate FiO2 to saturation of 92%. He was given antitussives. He was saturating well on room air. Patient was recommended need for ICD placement. Patient would not meet criteria for be BIV pacing. Patient was scheduled for ICD implantation, but patient refused. Breakdown Man and RN explained the risks of sudden heart attack/sudden without ICD placement, but patient strongly insisted on leaving the hospital. Patient verbalized understanding of aftercare instructions and the risks of discharging home without ICD placement. Prescriptions were given to the patient. Patient was discharged home. 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 DISCHARGE MEDICATIONS: Refer to Discharge Medication List. DISCHARGE INSTRUCTIONS: Follow-up in a week. I have been assigned to complete a discharge summary on this account, I was not involved with the patient's management. Bianka Valverde NP Nov 22, 2018 10:01
--- NOTE | 2018-11-24 11:04 | Cardiology Report ---
APPROVED REPORT EXAM: Two-dimensional and M-mode echocardiogram with Doppler and color Doppler. INDICATION Left Ventricular Function M-Mode DIMENSIONS IVSd2.1 (0.7-1.1cm)Left Atrium (MM)4.2 (1.6-4.0cm) LVDd5.0 (3.5-5.6cm)Aortic Root3.7 (2.0-3.7cm) PWd2.1 (0.7-1.1cm)Aortic Cusp Exc.1.6 (1.5-2.0cm) LVDs4.0 (2.5-4.0cm) PWs2.5 cm Technically difficult study due to poor acoustic windows. Study quality precludes accurate assessment of regional wall motion. Normal left ventricular chamber size. Global left ventricular hypokinesis. Left ventricular ejection fraction estimated to be 35-40 %. Moderate left ventricular hypertrophy. Anterior Echo-free space, may be due to pericardial fat or effusion. Mild left atrial enlargement. Right cardiac chamber sizes are within normal limits. Aortic valve calcification with decreased cusp excursion c/w aortic stenosis. Mildly thickened mitral valve leaflets with normal excursion. Mild mitral annulus and aortic root calcification. Pulmonic valve not well visualized. Normal tricuspid valve structure. IVC dilated at 2.6 cm with physiological collapse, suggestive of increased RA pressure. A color flow and spectral Doppler study was performed and revealed: Mild aortic regurgitation. Peak aortic valve gradient of 35 mmHg and a mean of 21 mmHg. Aortic valve area 0.8 cm2 calculated by continuity equation. Mild mitral regurgitation. Mitral diastolic velocities suggest mild left ventricular diastolic dysfunction (Grade I). Trace tricuspid regurgitation. Tricuspid systolic velocities suggests peak right ventricular systolic pressure of 37 mmHg, consistent with mild pulmonary hypertension. Trace pulmonic regurgitation present.
== END 2018-11-21 16:10 | disposition home health service (06) | DRG 291 ==
LOC: EMR 05:47 → 2W 07:00 → EDBEDREQ 07:22 → 2E 15:48
DX: I13.0 Hypertensive heart and chronic kidney disease with heart failure and stage 1 through stage 4 chronic kidney disease, or unspecified chronic kidney disease (principal); I50.23 Acute on chronic systolic (congestive) heart failure; J96.00 Acute respiratory failure, unspecified whether with hypoxia or hypercapnia; N17.0 Acute kidney failure with tubular necrosis; N18.9 Chronic kidney disease, unspecified; I25.10 Atherosclerotic heart disease of native coronary artery without angina pectoris; J44.9 Chronic obstructive pulmonary disease, unspecified; E11.22 Type 2 diabetes mellitus with diabetic chronic kidney disease; Z86.73 Personal history of transient ischemic attack (TIA), and cerebral infarction without residual deficits; Z95.1 Presence of aortocoronary bypass graft; K44.9 Diaphragmatic hernia without obstruction or gangrene; K22.70 Barrett's esophagus without dysplasia; E66.9 Obesity, unspecified; Z85.819 Personal history of malignant neoplasm of unspecified site of lip, oral cavity, and pharynx; F10.21 Alcohol dependence, in remission; F14.21 Cocaine dependence, in remission; Z79.84 Long term (current) use of oral hypoglycemic drugs; Z87.891 Personal history of nicotine dependence
CPT/HCPCS: 36415; 71045; 74176; 76770; 80048; 80053; 80061; 81003; 82043; 82150; 82550; 82962; 83036; 83690; 83735; 83880; 83935; 84100; 84300; 84443; 84484; 84550; 85025; 85610; 85651; 85730; 86140; 87070; 87205; 89050; 93005; 93306; 93970; 99285; J1815

== ENCOUNTER 2019-02-18 09:59 | Outpatient (CLI) | payer MEDICARE ==
[~2019-02-18 09:59] MED LIST changes: +VENTOLIN HFA18 GM INH
--- NOTE | 2019-02-18 10:49 | General Progress Note ---
Assessment/Plan Problem List: (1) EF 35% (2) Large hiatal hernia ICD Codes: K44.9 - Diaphragmatic hernia without obstruction or gangrene SNOMED: 80572298 (3) COPD (chronic obstructive pulmonary disease) ICD Codes: J44.9 - COPD (chronic obstructive pulmonary disease) SNOMED: 12631971 (4) Barretts esophagus ICD Codes: K22.70 - Barretts esophagus SNOMED: 041936210 (5) Diabetes ICD Codes: E11.9 - Type 2 diabetes mellitus without complications SNOMED: 02600537 (6) HTN (hypertension) ICD Codes: I10 - HTN (hypertension) SNOMED: 30478694 (7) CAD (coronary artery disease) ICD Codes: I25.10 - CAD (coronary artery disease) SNOMED: 09986901 (8) History of coronary artery bypass graft ICD Codes: Z95.1 - Presence of aortocoronary bypass graft SNOMED: 116174755, 765893828 Assessment/Plan: repeat EGD in one year cont ppi add Amitiza trial of xifaxan Subjective ROS Limited/Unobtainable: Yes Allergies: Coded Allergies: Dairy (Verified Allergy, Severe, Swollen lips, 09/29/15) GRAPEFRUIT (Verified Allergy, Intermediate, Rash, itching, 09/29/15) ORANGE JUICE (Verified Allergy, Intermediate, Itching, 09/29/15) POLLEN EXTRACTS (Verified Allergy, Intermediate, itching, sneezing, watery eyes, 09/29/15) Objective General Appearance: alert EENT: normal ENT inspection Neck: supple Cardiovascular: normal rate Respiratory/Chest: lungs clear Abdomen: normal bowel sounds, non tender, soft Extremities: non-tender Charles Hinds MD Feb 18, 2019 10:49
[2019-02-18 12:16] VITALS: BP 117/69
== END 2019-02-18 12:30 | disposition home or self-care (01) ==
LOC: PAN 09:59
DX: K22.70 Barrett's esophagus without dysplasia (principal); J44.9 Chronic obstructive pulmonary disease, unspecified; K44.9 Diaphragmatic hernia without obstruction or gangrene; E11.9 Type 2 diabetes mellitus without complications; I10 Essential (primary) hypertension; I25.10 Atherosclerotic heart disease of native coronary artery without angina pectoris; Z95.1 Presence of aortocoronary bypass graft; Z91.011 Allergy to milk products; Z91.018 Allergy to other foods
CPT/HCPCS: 99213